=== PATIENT | female | born 1955 | race Caucasian/White ===

== ENCOUNTER 2017-01-13 10:05 | Emergency (ER) | payer MEDICARE, OTHER ==
[2017-01-13 10:18] VITALS: RESP 22
--- NOTE | 2017-01-13 10:50 | ED ---
SOB HPI - General Chief Complaint: Shortness of Breath Stated Complaint: MAI, ASTHMA Time Seen by Provider: 01/13/17 10:38 Source: patient Mode of arrival: ambulatory Limitations: no limitations - History of Present Illness Initial Comments: Patient is a 61-year-old female with history of asthma, secondhand smoke exposure, CAD presenting with shortness of breath. Patient states she was walking into [facility] today and got short of breath for which she needed to rest. Patient admits to coughing for the past 5 weeks. She describes cough is white sputum. Patient denies fever or chills. Admits to runny nose and congestion. Patient denies chest pain. Patient denies history of DVT/PE, recent travel/trauma/surgery, hemoptysis. - Related Data Home Medications Medication Instructions Recorded Confirmed Atenolol [Tenormin] 25 mg PO DAILY 08/02/15 01/13/17 Aspirin EC [Ecotrin Low Dose] 81 mg PO DAILY 08/09/16 01/13/17 Previous Rx's Medication Instructions Recorded Levofloxacin [Levaquin] 750 mg PO DAILY #5 tab 01/13/17 Allergies Allergy/AdvReac Type Severity Reaction Status Date / Time Iodinated Contrast Media - Allergy Anaphylaxis Verified 01/13/17 10:18 Oral and [Iodinated Contrast Media - IV Dye] Penicillins Allergy Rash/Hives Verified 01/13/17 10:18 Review of Systems ROS Statement: Those systems with pertinent positive or pertinent negative responses have been documented in the HPI. Constitutional: No fever and no chills. HENT: +congestion, no rhinorrhea and no sore throat. Eyes: No discharge and no redness. Respiratory: + cough and + shortness of breath. Cardiovascular: No chest pain and no palpitations. Gastrointestinal: No nausea, no vomiting, no abdominal pain and no diarrhea. Genitourinary: No dysuria and no hematuria. Musculoskeletal: No back pain and no arthralgias. Skin: No pallor and no rash. Neurological: No dizziness and No headaches. ROS Other: All systems not noted in ROS Statement are negative. Past Medical History Past Medical History: Asthma, Coronary Artery Disease (CAD), Cancer, Eye Disorder, Hypertension Additional Past Medical History / Comment(s): uterine, CATARACTS History of Any Multi-Drug Resistant Organisms: None Reported Past Surgical History: Heart Catheterization, Hysterectomy, Orthopedic Surgery Additional Past Surgical History / Comment(s): BUNIONECTOMY, CATARACT SX Past Anesthesia/Blood Transfusion Reactions: No Reported Reaction Past Psychological History: No Psychological Hx Reported Smoking Status: Former smoker Past Alcohol Use History: None Reported Additional Past Alcohol Use History / Comment(s): QUIT SMOKING " A LONG TIME AGO " Past Drug Use History: None Reported - Past Family History Mother Family Medical History: No Reported History General Exam - General Exam Comments Initial Comments: Constitutional: Patient appears well-developed and well-nourished. No distress. Talking in complete sentences. Head: Normocephalic and atraumatic. Eyes: Conjunctivae and EOM are normal. Right eye exhibits no discharge. Left eye exhibits no discharge. No scleral icterus. Neck: Normal range of motion. Neck supple. Cardiovascular: Normal rate and regular rhythm. No murmur heard. Pulmonary/Chest: Decreased breath sounds left lower lobe with mild crackles. No wheezing. Abdominal: Soft. No distension. There is no tenderness. There is no rebound and no guarding. Musculoskeletal: Normal range of motion. No edema or tenderness. Neurological: Patient alert and oriented to person, place, and time. Skin: Skin is warm and dry. Not diaphoretic. Nursing notes and vitals reviewed. Limitations: no limitations Course Vital Signs 01/13/17 01/13/17 10:15 12:18 Temperature 97.6 F 98.2 F Pulse Rate 64 73 Respiratory 22 22 Rate Blood Pressure 137/76 147/68 O2 Sat by Pulse 92 L 96 Oximetry - Reevaluation(s) Reevaluation #1: Patient ambulated in the [place] without hypoxia. She is feeling well and hasn't been hospitalized last 3 months. X-ray concerning for pneumonia. Medical Decision Making - Medical Decision Making Patient is a 61-year-old female with history of asthma and secondhand smoke exposure presenting with shortness of breath. Patient states she's been coughing for the past 5 weeks. EKG was unremarkable. Chest x-ray showed concerning for a left lower lobe pneumonia. Laboratory work confirms concern for pneumonia with a white count of 16.5. BMP showing a BUN of 22. Troponin negative; BNP 184. UA negative. Given patient's concern of short of breath and cough in the setting of an x-ray with consolidation and white count of 16.5 patient will be treated for community acquired pneumonia. Patient is not hypoxic on exam or with ambulation. Patient agreeable to starting Levaquin and to return for any worsening of symptoms or unable to tolerate medications. Patient strictly instructed to follow-up with her PCP on Saturday.Prior to discharge, patient was resting comfortably in bed. Course of stay improved. Denies pain. Discussed physical exam and diagnostic tests with patient. Questions answered and patient is agreeable to discharge with close follow up with Primary Care Physician. Instructed to return to Emergency Department if symptoms worsen. - Lab Data Result diagrams: 01/13/17 11:15 01/13/17 11:15 Lab Results 01/13/17 01/13/17 01/13/17 Range/Units 11:15 11:15 11:15 WBC 16.5 H (3.8-10.6) k/uL RBC 5.12 (3.80-5.40) m/uL Hgb 14.8 (11.4-16.0) gm/dL Hct 45.8 (34.0-46.0) % MCV 89.5 (80.0-100.0) fL MCH 28.9 (25.0-35.0) pg MCHC 32.3 (31.0-37.0) g/dL RDW 14.4 (11.5-15.5) % Plt Count 307 (150-450) k/uL Neutrophils % 81 % Lymphocytes % 13 % Monocytes % 4 % Eosinophils % 2 % Basophils % 0 % Neutrophils # 13.4 H (1.3-7.7) k/uL Lymphocytes # 2.1 (1.0-4.8) k/uL Monocytes # 0.7 (0-1.0) k/uL Eosinophils # 0.3 (0-0.7) k/uL Basophils # 0.1 (0-0.2) k/uL Sodium 143 (137-145) mmol/L Potassium 4.1 (3.5-5.1) mmol/L Chloride 109 H (98-107) mmol/L Carbon Dioxide 23 (22-30) mmol/L Anion Gap 11 mmol/L BUN 22 H (7-17) mg/dL Creatinine 0.80 (0.52-1.04) mg/dL Est GFR (MDRD) Af Amer >60 (>60 ml/min/1.73 sqM) Est GFR (MDRD) Non-Af >60 (>60 ml/min/1.73 sqM) Glucose 98 (74-99) mg/dL Calcium 8.7 (8.4-10.2) mg/dL Magnesium 1.8 (1.6-2.3) mg/dL Troponin I <0.012 (0.000-0.034) ng/mL NT-Pro-B Natriuret Pep pg/mL Urine Color Urine Appearance (Clear) Urine pH (5.0-8.0) Ur Specific Halma (1.001-1.035) Urine Protein (Negative) Urine Glucose (UA) (Negative) Urine Ketones (Negative) Urine Blood (Negative) Urine Nitrate (Negative) Urine Bilirubin (Negative) Urine Urobilinogen (<2.0) mg/dL Ur Leukocyte Esterase (Negative) Urine RBC (0-5) /hpf Urine WBC (0-5) /hpf Ur Squamous Epith Cells (0-4) /hpf Hyaline Casts (0-2) /lpf Urine Mucus (None) /hpf 01/13/17 01/13/17 Range/Units 11:15 11:19 WBC (3.8-10.6) k/uL RBC (3.80-5.40) m/uL Hgb (11.4-16.0) gm/dL Hct (34.0-46.0) % MCV (80.0-100.0) fL MCH (25.0-35.0) pg MCHC (31.0-37.0) g/dL RDW (11.5-15.5) % Plt Count (150-450) k/uL Neutrophils % % Lymphocytes % % Monocytes % % Eosinophils % % Basophils % % Neutrophils # (1.3-7.7) k/uL Lymphocytes # (1.0-4.8) k/uL Monocytes # (0-1.0) k/uL Eosinophils # (0-0.7) k/uL Basophils # (0-0.2) k/uL Sodium (137-145) mmol/L Potassium (3.5-5.1) mmol/L Chloride (98-107) mmol/L Carbon Dioxide (22-30) mmol/L Anion Gap mmol/L BUN (7-17) mg/dL Creatinine (0.52-1.04) mg/dL Est GFR (MDRD) Af Amer (>60 ml/min/1.73 sqM) Est GFR (MDRD) Non-Af (>60 ml/min/1.73 sqM) Glucose (74-99) mg/dL Calcium (8.4-10.2) mg/dL Magnesium (1.6-2.3) mg/dL Troponin I (0.000-0.034) ng/mL NT-Pro-B Natriuret Pep 184 pg/mL Urine Color Yellow Urine Appearance Cloudy H (Clear) Urine pH 5.5 (5.0-8.0) Ur Specific Halma 1.026 (1.001-1.035) Urine Protein Trace H (Negative) Urine Glucose (UA) Negative (Negative) Urine Ketones Negative (Negative) Urine Blood Negative (Negative) Urine Nitrate Negative (Negative) Urine Bilirubin Negative (Negative) Urine Urobilinogen 2.0 (<2.0) mg/dL Ur Leukocyte Esterase Negative (Negative) Urine RBC 1 (0-5) /hpf Urine WBC 1 (0-5) /hpf Ur Squamous Epith Cells 5 H (0-4) /hpf Hyaline Casts 1 (0-2) /lpf Urine Mucus Occasional H (None) /hpf Rate 63. NSR. No ST-T wave changes. MI internal normal . QRS interval normal. QTc duration normal. Disposition Clinical Impression: CAP (community acquired pneumonia) Disposition: HOME SELF-CARE Condition: Good Instructions: Pneumonia (ED) Prescriptions: Levofloxacin [Levaquin] 750 mg PO DAILY #5 tab Referrals: Antolin Kaplan MD [Primary Care Provider] - 1-2 days
--- NOTE | 2017-01-13 11:15 | XR ---
EXAMINATION TYPE: XR chest 1V portable DATE OF EXAM: 01/13/2017 11:04 AM COMPARISON: Prior chest x-ray February HISTORY: Shortness of breath TECHNIQUE: Single frontal view of the chest is obtained. FINDINGS: There is been interval development of increase opacity at the left lung base, blunting the left costophrenic angle an obscured left heart border. No pneumothorax. Heart may be enlarged. IMPRESSION: Interval development of left lower lobe atelectasis versus pneumonia and associated effu won, follow-up to exclude underlying mass. Additional findings above.
[2017-01-13 11:26] LABS: Basophils # (A) 0.1 k/uL (0-0.2); Basophils % (A) 0 %; CH 29.6; CHCM 33.3; Eosinophils # (A) 0.3 k/uL (0-0.7); Eosinophils % (A) 2 %; HCT 45.8 % (34.0-46.0); HDW 2.32; HGB 14.8 gm/dL (11.4-16.0); Luc % (Auto) 1; Lymphocytes # (A) 2.1 k/uL (1.0-4.8); Lymphocytes % (A) 13 %; MCH 28.9 pg (25.0-35.0); MCHC 32.3 g/dL (31.0-37.0); MCV 89.5 fL (80.0-100.0); Mean Platelet Volume 7.9; Monocytes # (A) 0.7 k/uL (0-1.0); Monocytes % (A) 4 %; Neutrophils # (A) 13.4 k/uL (1.3-7.7); Neutrophils % (A) 81 %; RBC 5.12 m/uL (3.80-5.40); RDW 14.4 % (11.5-15.5); WBC 16.5 k/uL (3.8-10.6); WBC (Perox) 16.79
[2017-01-13 11:33] LABS: Anion Gap 11 mmol/L; Blood Urea Nitrogen 22 mg/dL (7-17); Calcium 8.7 mg/dL (8.4-10.2); Carbon Dioxide 23 mmol/L (22-30); Chloride 109 mmol/L (98-107); Glucose 98 mg/dL (74-99); Magnesium 1.8 mg/dL (1.6-2.3); Non-African American GFR(MDRD) >60 (>60 ml/min/1.73 sqM); Potassium 4.1 mmol/L (3.5-5.1); Sodium 143 mmol/L (137-145)
[2017-01-13 11:35] LABS: Appearance,Urine Cloudy (Clear); Bilirubin,Urine Negative (Negative); Glucose,Urine (UA) Negative (Negative); Ketones,Urine Negative (Negative); Leukocyte Esterase,Urine Negative (Negative); Mucus,Urine Occasional /hpf; Nitrite,Urine Negative (Negative); PH, Urine 5.5 (5.0-8.0); Particle Count 4368; Protein,Urine Trace (Negative); RBC,Urine 1 /hpf (0-5); Specific Gravity,Urine 1.026 (1.001-1.035); Squamous Epithelial Cell,Urine 5 /hpf (0-4); UA Billing (MACRO vs. MICRO) MICRO; WBC,Urine 1 /hpf (0-5)
[2017-01-13 12:35] VITALS: BP 147/68; PULSE 73; TEMP 98.2
== END 2017-01-13 13:03 | disposition home or self-care (01) ==
LOC: EC 10:05
DX: J18.9 Pneumonia, unspecified organism (principal); I10 Essential (primary) hypertension; I25.10 Atherosclerotic heart disease of native coronary artery without angina pectoris; Z77.22 Contact with and (suspected) exposure to environmental tobacco smoke (acute) (chronic); Z79.82 Long term (current) use of aspirin; Z79.899 Other long term (current) drug therapy; Z88.0 Allergy status to penicillin; Z91.041 Radiographic dye allergy status; Z87.891 Personal history of nicotine dependence
CPT/HCPCS: 36415; 71010; 80048; 81001; 83735; 83880; 84484; 85025; 93005; 99285

== ENCOUNTER 2017-01-15 13:26 | Inpatient (IN) | payer MEDICARE, OTHER ==
[2017-01-15] MEDS ORDERED: ACETAMINOPHEN TAB 500 MG TAB PO STA (14:28)
[2017-01-15] MEDS ORDERED: IPRATROPIUM-ALBUTEROL 3 ML NEB INHALATION STA (14:30)
--- NOTE | 2017-01-15 14:32 | ED ---
General Adult HPI - General Chief complaint: Shortness of Breath Stated complaint: Sent By PCP Time Seen by Provider: 01/15/17 13:35 Source: patient, RN notes reviewed Mode of arrival: ambulatory Limitations: no limitations - History of Present Illness Initial comments: This is a 61-year-old female presents emergency Department with a recent diagnosis of pneumonia. Patient went to the primary medical care doctor he sent her back to the emergency room. Patient was here last on Saturday. Patient has not Levaquin at home which she states she is having a more difficult time breathing and increasing shortness of breath with any activity. Patient denies chest pain or palpitations. Patient states she does have low-grade fever. Patient denies any abdominal pain patient denies nausea vomiting or diarrhea. Patient denies any recent injury or trauma. Patient states she is coughing but not coughing up any sputum. Patient denies any headache patient denies numbness weakness. Patient denies any lightheadedness or dizziness or near syncopal episode. - Related Data Home Medications Medication Instructions Recorded Confirmed Atenolol [Tenormin] 25 mg PO DAILY 08/02/15 01/15/17 Aspirin EC [Ecotrin Low Dose] 81 mg PO DAILY 08/09/16 01/15/17 Acetaminophen with Codeine 1 tab PO Q6H PRN 01/15/17 01/15/17 [Tylenol w/codeine #3] Atorvastatin [Lipitor] 40 mg PO DAILY 01/15/17 01/15/17 Cetirizine HCl [Zyrtec] 10 mg PO DAILY PRN 01/15/17 01/15/17 Ibuprofen [Motrin] 600 mg PO QID PRN 01/15/17 01/15/17 traMADol HCL [Ultram] 50 mg PO Q6H PRN 01/15/17 01/15/17 Allergies Allergy/AdvReac Type Severity Reaction Status Date / Time Iodinated Contrast Media - Allergy Anaphylaxis Verified 01/15/17 14:21 Oral and [Iodinated Contrast Media - IV Dye] Penicillins Allergy Rash/Hives Verified 01/15/17 14:21 Review of Systems ROS Statement: Those systems with pertinent positive or pertinent negative responses have been documented in the HPI. ROS Other: All systems not noted in ROS Statement are negative. Past Medical History Past Medical History: Asthma, Coronary Artery Disease (CAD), Cancer, Eye Disorder, Hypertension Additional Past Medical History / Comment(s): uterine, CATARACTS History of Any Multi-Drug Resistant Organisms: None Reported Past Surgical History: Heart Catheterization, Hysterectomy, Orthopedic Surgery Additional Past Surgical History / Comment(s): BUNIONECTOMY, CATARACT SX Past Anesthesia/Blood Transfusion Reactions: No Reported Reaction Past Psychological History: No Psychological Hx Reported Smoking Status: Former smoker Past Alcohol Use History: None Reported Additional Past Alcohol Use History / Comment(s): QUIT SMOKING " A LONG TIME AGO " Past Drug Use History: None Reported - Past Family History Mother Family Medical History: No Reported History General Exam - General Exam Comments Initial Comments: GENERAL: Patient is well-developed and well-nourished. Patient is nontoxic and well- hydrated and is in mild distress. ENT: Neck is soft and supple. No significant lymphadenopathy is noted. Oropharynx is clear. Moist mucous membranes. Neck has full range of motion without eliciting any pain. EYES: The sclera were anicteric and conjunctiva were pink and moist. Extraocular movements were intact and pupils were equal round and reactive to light. Eyelids were unremarkable. PULMONARY: Patient has decreased breath sounds in the left base. CARDIOVASCULAR: There is a regular rate and rhythm without any murmurs gallops or rubs. ABDOMEN: Soft and nontender with normal bowel sounds. No palpable organomegaly was noted. There is no palpable pulsatile mass. SKIN: Skin is clear with no lesions or rashes and otherwise unremarkable. NEUROLOGIC: Patient is alert and oriented x3. Cranial nerves II through XII are grossly intact. Motor and sensory are also intact. Normal speech, volume and content. Symmetrical smile. MUSCULOSKELETAL: Normal extremities with adequate strength and full range of motion. LYMPHATICS: No significant lymphadenopathy is noted PSYCHIATRIC: Normal psychiatric evaluation. Normal interpersonal interactions appears functionally intact in deals appropriately with others. No signs of depression. No signs of anxiety. Limitations: no limitations Course Vital Signs 01/15/17 01/15/17 01/15/17 13:32 14:55 15:05 Temperature 100 F H Pulse Rate 73 78 82 Respiratory 22 Rate Blood Pressure 148/102 O2 Sat by Pulse 97 Oximetry Medical Decision Making - Medical Decision Making EKG shows normal sinus rhythm at 68 bpm UT interval is 118 QRS is 84 QT interval 380 QTC is 404. Patient's EKG shows no ST segment elevation or depression or T-wave abdomen is noted Chest x-ray shows a large pleural effusion on the right and possible pneumonia. Patient is awake, started the patient on Rocephin and Zithromax because she was on Levaquin as an outpatient and apparently was not getting better. - Lab Data Result diagrams: 01/15/17 14:40 01/15/17 14:40 Lab Results 01/15/17 01/15/17 01/15/17 Range/Units 14:40 14:40 14:40 WBC 13.8 H (3.8-10.6) k/uL RBC 5.25 (3.80-5.40) m/uL Hgb 15.0 (11.4-16.0) gm/dL Hct 46.4 H (34.0-46.0) % MCV 88.5 (80.0-100.0) fL MCH 28.5 (25.0-35.0) pg MCHC 32.3 (31.0-37.0) g/dL RDW 14.4 (11.5-15.5) % Plt Count 320 (150-450) k/uL Neutrophils % 79 % Lymphocytes % 15 % Monocytes % 4 % Eosinophils % 1 % Basophils % 0 % Neutrophils # 10.9 H (1.3-7.7) k/uL Lymphocytes # 2.0 (1.0-4.8) k/uL Monocytes # 0.5 (0-1.0) k/uL Eosinophils # 0.2 (0-0.7) k/uL Basophils # 0.0 (0-0.2) k/uL Sodium 143 (137-145) mmol/L Potassium 4.1 (3.5-5.1) mmol/L Chloride 107 (98-107) mmol/L Carbon Dioxide 22 (22-30) mmol/L Anion Gap 14 mmol/L BUN 15 (7-17) mg/dL Creatinine 0.80 (0.52-1.04) mg/dL Est GFR (MDRD) Af Amer >60 (>60 ml/min/1.73 sqM) Est GFR (MDRD) Non-Af >60 (>60 ml/min/1.73 sqM) Glucose 96 (74-99) mg/dL Plasma Lactic Acid Fuentes 1.1 (0.7-2.0) mmol/L Calcium 9.2 (8.4-10.2) mg/dL Total Bilirubin 1.1 (0.2-1.3) mg/dL AST 21 (14-36) U/L ALT 40 (9-52) U/L Alkaline Phosphatase 105 (38-126) U/L Troponin I (0.000-0.034) ng/mL Total Protein 6.9 (6.3-8.2) g/dL Albumin 3.8 (3.5-5.0) g/dL 01/15/17 Range/Units 14:40 WBC (3.8-10.6) k/uL RBC (3.80-5.40) m/uL Hgb (11.4-16.0) gm/dL Hct (34.0-46.0) % MCV (80.0-100.0) fL MCH (25.0-35.0) pg MCHC (31.0-37.0) g/dL RDW (11.5-15.5) % Plt Count (150-450) k/uL Neutrophils % % Lymphocytes % % Monocytes % % Eosinophils % % Basophils % % Neutrophils # (1.3-7.7) k/uL Lymphocytes # (1.0-4.8) k/uL Monocytes # (0-1.0) k/uL Eosinophils # (0-0.7) k/uL Basophils # (0-0.2) k/uL Sodium (137-145) mmol/L Potassium (3.5-5.1) mmol/L Chloride (98-107) mmol/L Carbon Dioxide (22-30) mmol/L Anion Gap mmol/L BUN (7-17) mg/dL Creatinine (0.52-1.04) mg/dL Est GFR (MDRD) Af Amer (>60 ml/min/1.73 sqM) Est GFR (MDRD) Non-Af (>60 ml/min/1.73 sqM) Glucose (74-99) mg/dL Plasma Lactic Acid Fuentes (0.7-2.0) mmol/L Calcium (8.4-10.2) mg/dL Total Bilirubin (0.2-1.3) mg/dL AST (14-36) U/L ALT (9-52) U/L Alkaline Phosphatase (38-126) U/L Troponin I <0.012 (0.000-0.034) ng/mL Total Protein (6.3-8.2) g/dL Albumin (3.5-5.0) g/dL Disposition Clinical Impression: Pneumonia, Pleural effusion Disposition: ADMITTED IP TO THIS HOSP Time of Disposition: 16:11
[2017-01-15 15:00] LABS: Basophils % (A) 0 %; CH 29.4; CHCM 33.3; Eosinophils # (A) 0.2 k/uL (0-0.7); Eosinophils % (A) 1 %; HCT 46.4 % (34.0-46.0); HDW 2.24; Luc # (Auto) 0.12; Luc % (Auto) 1; Lymphocytes % (A) 15 %; MCH 28.5 pg (25.0-35.0); MCHC 32.3 g/dL (31.0-37.0); MCV 88.5 fL (80.0-100.0); Mean Platelet Volume 7.1; Monocytes # (A) 0.5 k/uL (0-1.0); Monocytes % (A) 4 %; Neutrophils # (A) 10.9 k/uL (1.3-7.7); Neutrophils % (A) 79 %; RBC 5.25 m/uL (3.80-5.40); RDW 14.4 % (11.5-15.5); WBC 13.8 k/uL (3.8-10.6); WBC (Perox) 13.92
[2017-01-15 15:08] LABS: ALT 40 U/L (9-52); AST 21 U/L (14-36); Alkaline Phosphatase 105 U/L (38-126); Anion Gap 14 mmol/L; Blood Urea Nitrogen 15 mg/dL (7-17); Calcium 9.2 mg/dL (8.4-10.2); Carbon Dioxide 22 mmol/L (22-30); Chloride 107 mmol/L (98-107); Glucose 96 mg/dL (74-99); Non-African American GFR(MDRD) >60 (>60 ml/min/1.73 sqM); Potassium 4.1 mmol/L (3.5-5.1); Sodium 143 mmol/L (137-145); Total Bilirubin 1.1 mg/dL (0.2-1.3); Total Protein 6.9 g/dL (6.3-8.2)
[2017-01-15] MEDS ORDERED: PNEUMONIA PROTOCOL UTILIZED 1 EACH MISC PO PRN (16:11)
[2017-01-15] MEDS ORDERED: AZITHROMYCIN 500 MG in SODIUM CHLORIDE 0.9% 250 ML IVPB STA (16:15)
[2017-01-15] MEDS ORDERED: LORATADINE 10 MG TAB PO PRN (20:32)
[2017-01-15] MEDS ORDERED: traMADol 50 MG TAB PO PRN (20:32)
[2017-01-15] MEDS ORDERED: IBUPROFEN 600 MG TAB PO PRN (20:32)
[2017-01-15] MEDS: IPRATROPIUM-ALBUTEROL 3 ML NEB INHALATION SCH (20:51)
[2017-01-15] MEDS: MELATONIN 3 MG TABLET PO SCH (21:21)
--- NOTE | 2017-01-16 07:31 | XR ---
EXAMINATION TYPE: XR chest 2V DATE OF EXAM: 01/16/2017 6:46 AM HISTORY: Shortness of breath. REFERENCE: Previous study dated 01/13/2017. FINDINGS: There is a worsening left-sided pleural effusion. There is associated atelectasis. The righ t lung is clear. Heart size is obscured. IMPRESSION: WORSENING LEFT-SIDED OPACITY LIKELY REPRESENTING COMBINATION OF FLUID AND ATELECTASIS. FOLLOW-UP TO [facility] WOULD BE SUGGESTED TO EXCLUDE MALIGNANCY.
[2017-01-16] MEDS: IPRATROPIUM-ALBUTEROL 3 ML NEB INHALATION SCH ×4 (08:43→19:23)
[2017-01-16] MEDS: ATENOLOL 25 MG TAB PO SCH (09:10)
[2017-01-16] MEDS: ASPIRIN 81 MG CHEW PO SCH (09:10)
[2017-01-16] MEDS: ATORVASTATIN 40 MG TAB PO SCH (09:10)
[2017-01-16 09:44] VITALS: BMI 41.5
--- NOTE | 2017-01-16 12:12 | HP ---
DATE OF ADMISSION: 01/15/2017 PRESENTING COMPLAINT: Short of breath. HISTORY OF PRESENTING COMPLAINT: This is a pleasant 61-year-old mentally challenged patient. Follows with Dr. Kaplan. Patient's chronic stable medical conditions include coronary artery disease, hypertension, hyperlipidemia, osteoarthritis, gout. Patient presented to the ER, patient recently diagnosed with pneumonia and given Levaquin. Patient became more short of breath, has got a cough, no sputum. May have had a low grade fever. Appetite has been low. Patient was found to have a large pleural effusion on left side as a possible pneumonic infiltrate. Admitted for the same. REVIEW OF SYSTEMS: CONSTITUTIONAL: Tired. HEENT: None. RESPIRATORY: As above. CARDIOVASCULAR: None. GASTROINTESTINAL: None. GENITOURINARY: None. MUSCULOSKELETAL: Some pain in different joints. DERMATOLOGICAL: None. HEMATOLOGICAL: None. LYMPHATIC: None. PSYCHIATRY: Patient slightly slow. NEUROLOGICAL: Moving all 4 limbs. Past medical history of asthma, coronary artery disease, hyperlipidemia, hypertension, osteoarthritis, uterine cancer, cataract in the right eye, migraine, gout. PAST SURGICAL HISTORY: Cardiac cath, hysterectomy, bilateral bunionectomy, right hand surgery. SOCIAL HISTORY: Patient not able to read or write, lives with her will, telephone number [phone]. No smoking. No alcohol. FAMILY HISTORY: Patient does not remember. HOME MEDICATIONS: 1. Tenormin 25 mg a day. 2. Aspirin 81 mg a day. 3. Tylenol No. 3 one tablet q.6 p.r.n. 4. Ultram 50 mg q.6 p.r.n. 5. Motrin 600 mg q.i.d. p.r.n. 6. Zyrtec 10 mg p.o. daily p.r.n. 7. Lipitor 40 mg p.o. daily. Allergies to IV CONTRAST DYE. On examination, temperature 100, pulse 73, respiratory 22, blood pressure 148/102, pulse ox 97% on room air. GENERAL APPEARANCE: Well built, BMI of 41, sitting up, not in distress. EYES: Pupils equal. Conjunctivae normal. HEENT: External appearance of nose and ears normal. Oral cavity normal. NECK: JVD not raised. Mass not palpable. Respiratory effort increased. LUNGS: Diminished breath sounds on the left side. CARDIOVASCULAR: First and second sounds normal. No edema. ABDOMEN: Soft, nontender. Liver and spleen not palpable. LYMPHATIC: No lymph nodes palpable in the neck or axilla. . PSYCHIATRY: Patient answers simple questions. NEUROLOGICAL: Pupils equal. Moving all 4 limbs. INVESTIGATIONS: Chest x-ray shows the probable left pleural effusion, cannot rule out underlying infiltrate. White count 13.8, potassium 4.1. Creatinine are normal. ASSESSMENT: 1. Probably left-sided pneumonia with a large parapneumonic effusion, though patient does not have a septic picture on presentation, we will need further investigation. 2. Morbid obesity with body mass index of 41.5. 3. Mild persistent asthma. 4. Coronary artery disease, history of. 5. Essential hypertension. 6. Primary osteoarthritis in multiple joints, bilateral. 7. Hyperlipidemia. PLAN: Patient was put on IV ceftriaxone in the ER. Pulmonary is consulted. Home medications are resumed. Care was discussed with the patient.
[2017-01-16] MEDS: ENOXAPARIN 40 MG/0.4 ML SYRINGE SQ SCH (12:46)
--- NOTE | 2017-01-16 15:11 | XR ---
EXAMINATION TYPE: XR chest 1V portable DATE OF EXAM: 01/16/2017 2:57 PM COMPARISON: Prior chest x-ray December HISTORY: Status post left thoracentesis TECHNIQUE: Single frontal view of the chest is obtained. FINDINGS: There may be some slight reduction in pleural fluid on the left. There is no other signifi cant interval change. IMPRESSION: Large left pleural effusion and associated atelectasis or cyst pneumonia, follow-up to [facility], no evident complication status post thoracentesis
--- NOTE | 2017-01-16 16:41 | CT ---
EXAMINATION TYPE: CT chest wo con DATE OF EXAM: 01/16/2017 4:32 PM COMPARISON: Previous study dated 02/03/2014. HISTORY: LLL opacity. CT DLP: 573.1 mGycm Automated exposure control for dose reduction was used. FINDINGS: There is a prominent left-sided pleural effusion. This was not present previously. The 4.5 mm nodule in the right middle lobe noted previously today measures 5.8 mm. No additional nodu larity is seen. There is atelectatic change present at the left lung base. The major bronchi appear p atent. There is no significant axillary, internal mammary or hilar adenopathy. The heart is enlarged. There is no pericardial fluid. Visualized portions of the upper abdomen are unremarkable. There is hypertrophic spondylosis within t he spine. IMPRESSION: 1. SLIGHT ENLARGEMENT IN THE PATIENT'S RIGHT MIDDLE LOBE NODULE. 2. WORSENING LEFT EFFUSION WITH ASSOCIATED ATELECTASIS. 3. CARDIOMEGALY.
[2017-01-16] MEDS: AZITHROMYCIN 500 MG TAB PO SCH (16:45)
--- NOTE | 2017-01-16 17:11 | P.CNPUL ---
History of Present Illness Consult date: 01/16/17 Reason for consult: pleural effusion History of present illness: This is a 61-year-old female patient who came into the hospital because of a large left-sided pleural effusion. A pulmonary consultation was requested. Note that the patient was in the emergency department few days back with cough and chest congestion and shortness of breath. At that time her chest x-ray showed a small to moderate-sized left-sided pleural effusion and she was placed on antibiotics and she was discharged home. Subsequently she came back for worsening of her symptoms and the repeat chest x-ray showed worsening of the left-sided pleural effusion. Based on this, the patient was admitted to the hospital and pulmonary consultation was requested. Despite all this, the patient has limited shortness of breath at this point. No cough today. She is afebrile hemodynamically stable. White cell count is not elevated. I reviewed the chest x-ray and there was a large left-sided pleural effusion and I proceeded with thoracentesis today evacuated a total of 900 mL of pleural fluid from the left lung. The procedure was done without any complications. Nevertheless, the follow-up chest x-ray showed a persistent consolidation of the left lung. A CAT scan of the chest was accordingly orders. The CAT scan is still showing significant consolidation of left lower lobe along with some limited loculated pleural effusion the left lung base. No mediastinal lymphadenopathy. A tiny subcentimeter right midlung pulmonary nodule is seen. The fluid cytology is pending. Fluid chemistry is also pending. The patient has a remote history of uterine cancer. She has had partial hysterectomy many years back. Her health maintenance has not been appropriately done. She denies having any mammograms or routine colonoscopies regarding cancer screening. No history of any TB exposure. Review of Systems full review of system was done and the positive findings are almost above in history of present illness Past Medical History Past Medical History: Asthma, Coronary Artery Disease (CAD), Cancer, Eye Disorder, Hyperlipidemia, Hypertension, Osteoarthritis (OA), Pneumonia Additional Past Medical History / Comment(s): Morbid obesity, bronchial asthma, coronary artery disease, hypertension, hyperlipidemia, uterine cancer, osteoarthritis, cataracts, migraines, peripheral neuropathy, episodic urinary tract infections, gout, mentally challenged History of Any Multi-Drug Resistant Organisms: None Reported Past Surgical History: Heart Catheterization, Hysterectomy, Orthopedic Surgery Additional Past Surgical History / Comment(s): Right hand surgery, bilateral bunionectomy, cataract surgery, EGD, colonoscopy, surgery for ingrowing toenails , cardiac catheterization, partial hysterectomy Past Anesthesia/Blood Transfusion Reactions: Motion Sickness Additional Past Anesthesia/Blood Transfusion Reaction / Comment(s): clausterphobia Past Psychological History: No Psychological Hx Reported Additional Psychological History / Comment(s): per pt's sister diallo,pt is menatally challenged, unable to read or write.lives with [id number] , independant no assistive devices when up Smoking Status: Never smoker Past Alcohol Use History: None Reported Additional Past Alcohol Use History / Comment(s): QUIT SMOKING " A LONG TIME AGO " Past Drug Use History: None Reported - Past Family History Mother Family Medical History: Unable to Obtain Father Family Medical History: Unable to Obtain Medications and Allergies Home Medications Medication Instructions Recorded Confirmed Type Atenolol [Tenormin] 25 mg PO DAILY 08/02/15 01/15/17 History Aspirin EC [Ecotrin Low Dose] 81 mg PO DAILY 08/09/16 01/15/17 History Acetaminophen with Codeine 1 tab PO Q6H PRN 01/15/17 01/15/17 History [Tylenol w/codeine #3] Atorvastatin [Lipitor] 40 mg PO DAILY 01/15/17 01/15/17 History Cetirizine HCl [Zyrtec] 10 mg PO DAILY PRN 01/15/17 01/15/17 History Ibuprofen [Motrin] 600 mg PO QID PRN 01/15/17 01/15/17 History traMADol HCL [Ultram] 50 mg PO Q6H PRN 01/15/17 01/15/17 History Allergies Allergy/AdvReac Type Severity Reaction Status Date / Time Iodinated Contrast Media - Allergy Anaphylaxis Verified 01/15/17 14:21 Oral and [Iodinated Contrast Media - IV Dye] Penicillins Allergy Rash/Hives Verified 01/15/17 14:21 Physical Exam Vitals: Vital Signs Temp Pulse Pulse Resp BP BP Pulse Ox 01/16/17 16:16 80 01/16/17 16:03 82 01/16/17 16:00 16 01/16/17 15:00 98.2 F 65 16 140/78 97 01/16/17 12:28 80 01/16/17 12:15 80 01/16/17 09:06 80 01/16/17 08:44 80 01/16/17 08:00 60 01/16/17 07:00 97.6 F 60 16 144/73 94 L 01/15/17 22:49 97.6 F 88 17 141/65 95 01/15/17 21:02 76 01/15/17 20:58 80 01/15/17 18:06 97.9 F 82 17 166/74 97 01/15/17 17:21 98.9 F 75 18 155/75 95 Intake and Output 01/16/17 01/16/17 01/16/17 06:59 14:59 22:59 Intake Total 480 160 Output Total 850 Balance 480 -690 Intake: IV 160 0.9 160 Oral 480 Output: Chest Tube Drainage 850 Left Pleural/Mediastinal 850 Other: Voiding Method Toilet Toilet # Voids 2 5 Weight 109.769 kg Patient Weight 01/17/17 06:59 Weight 109.769 kg morbidly obese, comfortable.Head exam was generally normal. There was no scleral icterus or corneal arcus. Mucous membranes were moist. My normal neck and the patient has significant crowding of the posterior oropharynx. Lung sounds are diminished in left lung base along with some dullness to percussion. There is adequate air entry on the right lung.Cardiac exam revealed the PMI to be normally situated and sized. The rhythm was regular and no extrasystoles were noted during several minutes of auscultation. The first and second heart sounds were normal and physiologic splitting of the second heart sound was noted. There were no murmurs, rubs, clicks, or gallops.Abdominal exam revealed normal bowel sounds. The abdomen was soft, non-tender, and without masses, organomegaly, or appreciable enlargement of the abdominal aorta.Examination of the extremities revealed easily palpable radial, femoral and pedal pulses. There was no cyanosis, clubbing or edema. Results - Laboratory Findings CBC and BMP: 01/15/17 14:40 01/15/17 14:40 - Diagnostic Findings Chest x-ray: image reviewed Assessment and Plan Plan: Assessment 1 large left-sided pleural effusion/consolidation. The patient underwent a diagnostic and therapeutic thoracentesis following which a total of 900 mL of pleural fluid aspirated from the left lung without any complications. The follow-up CAT scan of the chest shows significant consolidation in the left lung base/left lower lobe along with some limited loculated pleural effusion without any evidence of intrathoracic malignancy. This was done without contrast nontender the patient has an anaphylactic reaction to contrast exposure in the past. The differential diagnoses remains a parapneumonic effusion involving the left lung. Malignant effusion can now be completely excluded. Awaiting fluid analysis and cytology 2 mentally challenged 3 morbid obesity 4 coronary artery disease 5 bronchial asthma 6 he is trying cancer status post hysterectomy. 7 osteoarthritis 8 hypertension 9 hyperlipidemia Plan Awaiting fluid cytology, cover this patient with a combination of Rocephin and Zithromax. Provide the patient incentive spirometer. Provide the patient DuoNeb nebulized treatments around the clock. DVT and GI prophylaxis. We'll continue to follow.
--- NOTE | 2017-01-16 17:13 | P.PCN ---
Date of Procedure: 01/16/17 Preoperative Diagnosis: left-sided pleural effusion Postoperative Diagnosis: left-sided pleural effusion Procedure(s) Performed: thoracentesis Anesthesia: local Surgeon: Lorena Liu Pathology: other Condition: stable Disposition: no change Operative Findings: The procedure was done in the patient's room. The patient was positioned on the bedside and she was asked to sit at edge of the bed with her arms stretched along a bedside table. The left posterior chest area was prepped using chlorhexidine to the necessity 1% lidocaine. Following that I was able to insert a thoracentesis catheter successfully into the left hemithorax and total of 900 mL of pleural fluid was aspirated without any major difficulties or complications. The fluid was turbid and dark yellowish in color. The patient tolerated the procedure well and the chest x-ray following the procedure showed no evidence of any pneumothorax.
[2017-01-16 19:33] LABS: RBC, Body Fluid 790 /uL
[2017-01-16 20:47] LABS: Glucose,Whole Blood 118 mg/dL (75-99)
[2017-01-16] MEDS: MELATONIN 3 MG TABLET PO SCH (21:05)
[2017-01-16] MEDS: Acetaminophen-Codeine 300-30mg TAB PO PRN (21:06)
[2017-01-17] MEDS: IPRATROPIUM-ALBUTEROL 3 ML NEB INHALATION SCH ×4 (07:35→19:23)
[2017-01-17] MEDS: ENOXAPARIN 40 MG/0.4 ML SYRINGE SQ SCH (08:24)
[2017-01-17] MEDS: ATENOLOL 25 MG TAB PO SCH (08:24)
[2017-01-17] MEDS: ATORVASTATIN 40 MG TAB PO SCH (08:24)
[2017-01-17] MEDS: ASPIRIN 81 MG CHEW PO SCH (08:24)
--- NOTE | 2017-01-17 17:01 | P.PN ---
Subjective This is a 61-year-old female patient who came into the hospital because of a large left-sided pleural effusion. A pulmonary consultation was requested. Note that the patient was in the emergency department few days back with cough and chest congestion and shortness of breath. At that time her chest x-ray showed a small to moderate-sized left-sided pleural effusion and she was placed on antibiotics and she was discharged home. Subsequently she came back for worsening of her symptoms and the repeat chest x-ray showed worsening of the left-sided pleural effusion. Based on this, the patient was admitted to the hospital and pulmonary consultation was requested. Despite all this, the patient has limited shortness of breath at this point. No cough today. She is afebrile hemodynamically stable. White cell count is not elevated. I reviewed the chest x-ray and there was a large left-sided pleural effusion and I proceeded with thoracentesis today evacuated a total of 900 mL of pleural fluid from the left lung. The procedure was done without any complications. Nevertheless, the follow-up chest x-ray showed a persistent consolidation of the left lung. A CAT scan of the chest was accordingly orders. The CAT scan is still showing significant consolidation of left lower lobe along with some limited loculated pleural effusion the left lung base. No mediastinal lymphadenopathy. A tiny subcentimeter right midlung pulmonary nodule is seen. The fluid cytology is pending. Fluid chemistry is also pending. The patient has a remote history of uterine cancer. She has had partial hysterectomy many years back. Her health maintenance has not been appropriately done. She denies having any mammograms or routine colonoscopies regarding cancer screening. No history of any TB exposure. The patient was seen and evaluated again on 01/17/2017 on the regular medical floor. She is status post left lung thoracentesis. Fluid analysis and pathology is pending. She denies any shortness of breath, cough and congestion. She is maintaining good O2 saturations in the mid 90s on room air. She is maintained on bronchodilators and antibiotics in the form of ceftriaxone and azithromycin. Objective - Vital Signs Vital signs: Vital Signs Temp 98.1 F 01/17/17 15:16 Pulse 75 01/17/17 16:03 Resp 18 01/17/17 16:00 BP 136/64 01/17/17 15:16 Pulse Ox 95 01/17/17 15:16 Intake & Output 01/16/17 01/17/17 01/17/17 18:59 06:59 18:59 Intake Total 160 480 Output Total 850 Balance -690 480 Weight 109.769 kg 109.769 kg Intake: IV 160 0.9 160 Oral 480 Output: Chest Tube Drainage 850 Left Pleural/Mediastinal 850 Other: Voiding Method Toilet Toilet Toilet # Voids 5 2 2 - Exam Morbidly obese, comfortable.Head exam was generally normal. There was no scleral icterus or corneal arcus. Mucous membranes were moist. My normal neck and the patient has significant crowding of the posterior oropharynx. Lung sounds are diminished in left lung base along with some dullness to percussion. There is adequate air entry on the right lung.Cardiac exam revealed the PMI to be normally situated and sized. The rhythm was regular and no extrasystoles were noted during several minutes of auscultation. The first and second heart sounds were normal and physiologic splitting of the second heart sound was noted. There were no murmurs, rubs, clicks, or gallops.Abdominal exam revealed normal bowel sounds. The abdomen was soft, non-tender, and without masses, organomegaly, or appreciable enlargement of the abdominal aorta.Examination of the extremities revealed easily palpable radial, femoral and pedal pulses. There was no cyanosis, clubbing or edema. - Labs CBC & Chem 7: 01/15/17 14:40 01/15/17 14:40 Labs: Abnormal Lab Results - Last 24 Hours (Table) 01/16/17 Range/Units 20:45 POC Glucose (mg/dL) 118 H (75-99) mg/dL Microbiology - Last 24 Hours (Table) 01/16/17 14:40 Gram Stain - Preliminary Pleural Fluid Body Fluid Culture - Preliminary 01/15/17 16:24 Blood Culture - Preliminary Blood No Growth after 24 hours Assessment and Plan Plan: 1 large left-sided pleural effusion/consolidation. The patient underwent a diagnostic and therapeutic thoracentesis following which a total of 900 mL of pleural fluid aspirated from the left lung without any complications. The follow-up CAT scan of the chest shows significant consolidation in the left lung base/left lower lobe along with some limited loculated pleural effusion without any evidence of intrathoracic malignancy. This was done without contrast nontender the patient has an anaphylactic reaction to contrast exposure in the past. The differential diagnoses remains a parapneumonic effusion involving the left lung. Malignant effusion can now be completely excluded. Awaiting fluid analysis and cytology 2 mentally challenged 3 morbid obesity 4 coronary artery disease 5 bronchial asthma 6 he is trying cancer status post hysterectomy. 7 osteoarthritis 8 hypertension 9 hyperlipidemia Plan The patient was seen and evaluated by Dr. Liu. Awaiting fluid cytology, cover this patient with a combination of Rocephin and Zithromax. She is again encouraged regarding the increased use of the incentive spirometer. Continue bronchodilators. We will increase her activity as tolerated. We'll continue to follow make further recommendations based on her clinical status.
[2017-01-17] MEDS: AZITHROMYCIN 500 MG TAB PO SCH (17:17)
[2017-01-17] MEDS: MELATONIN 3 MG TABLET PO SCH (20:43)
[2017-01-17] MEDS: Acetaminophen-Codeine 300-30mg TAB PO PRN (20:43)
--- NOTE | 2017-01-17 21:51 | PN ---
DATE OF SERVICE: 01/17/2017 PRESENTING COMPLAINT: Short of breath. INTERVAL HISTORY: This patient presented with shortness of breath. Found to have left-sided pleural effusion. 900 mL of pleural fluid was tapped. Biochemistries pending. The patient does not look too much in distress. Did tolerate his diet. Breathing is better. Review of systems done for constitutional, cardiovascular, GI, pulmonary; relevant findings as above. Current medications include IV ceftriaxone. On examination, temperature 98.1, pulse 72, respiration 18, blood pressure 133/54, pulse ox 95% on room air. GENERAL APPEARANCE: Sitting up, not in distress. EYES: Pupils equal. Conjunctivae normal. NECK: JVD not raised. Mass not palpable. RESPIRATORY: Effort normal. LUNGS: Diminished breath sounds in the left side. CARDIOVASCULAR: First and second sounds normal. No edema. ABDOMEN: Soft, nontender. PSYCHIATRY: Awake, answering simple questions. INVESTIGATIONS: The patient body fluid results are pending. ASSESSMENT: 1. Large left-sided parapneumonic effusion could be from her recent pneumonia cannot rule out a malignant component as both consolidation underlying tumors is highly possible. 2. Morbid obesity body mass index of 41.5. 3. Mild persistent asthma. 4. Coronary artery disease, history of. 5. Essential hypertension. 6. Primary osteoarthritis in multiple joints, bilateral. 7. Hyperlipidemia. PLAN: At this point continue with IV ceftriaxone. Discussed with Dr. Liu. Await biochemistry. Patient's sister at the bedside. Will follow.
[2017-01-17 22:33] VITALS: RESP 16
[2017-01-18] MEDS: Acetaminophen-Codeine 300-30mg TAB PO PRN (05:44)
[2017-01-18] MEDS: IPRATROPIUM-ALBUTEROL 3 ML NEB INHALATION SCH ×3 (07:25→15:55)
[2017-01-18 08:10] LABS: Basophils # (A) 0.1 k/uL (0-0.2); Basophils % (A) 0 %; CH 29.1; CHCM 33.1; Eosinophils # (A) 0.3 k/uL (0-0.7); Eosinophils % (A) 2 %; HCT 43.4 % (34.0-46.0); HDW 2.27; HGB 14.2 gm/dL (11.4-16.0); Luc # (Auto) 0.11; Luc % (Auto) 1; Lymphocytes # (A) 2.9 k/uL (1.0-4.8); Lymphocytes % (A) 23 %; MCHC 32.8 g/dL (31.0-37.0); MCV 88.3 fL (80.0-100.0); Mean Platelet Volume 7.9; Monocytes # (A) 0.6 k/uL (0-1.0); Monocytes % (A) 4 %; Neutrophils # (A) 9.1 k/uL (1.3-7.7); Neutrophils % (A) 70 %; RBC 4.91 m/uL (3.80-5.40); RDW 14.5 % (11.5-15.5); WBC (Perox) 13.44
--- NOTE | 2017-01-18 08:13 | XR ---
EXAMINATION TYPE: XR chest 2V DATE OF EXAM: 01/18/2017 6:28 AM COMPARISON: 01/16/2017 HISTORY: 61 year-old female follow-up pneumonia TECHNIQUE: Frontal and lateral views FINDINGS: Left heart margin remains obscured by adjacent pleural parenchymal disease. There is continued modera te to large left pleural effusion with adjacent opacity. Visualized right lung is clear. IMPRESSION: Continued moderate to large left pleural effusion without interval change. Adjacent atelectasis or co nsolidation not excluded.
[2017-01-18 08:25] VITALS: BP 142/72; TEMP 97.6
[2017-01-18 08:38] LABS: ALT 31 U/L (9-52); AST 20 U/L (14-36); Alkaline Phosphatase 91 U/L (38-126); Anion Gap 13 mmol/L; Blood Urea Nitrogen 18 mg/dL (7-17); Calcium 8.9 mg/dL (8.4-10.2); Carbon Dioxide 26 mmol/L (22-30); Chloride 104 mmol/L (98-107); Glucose 98 mg/dL (74-99); Non-African American GFR(MDRD) >60 (>60 ml/min/1.73 sqM); Potassium 4.2 mmol/L (3.5-5.1); Sodium 143 mmol/L (137-145); Total Protein 6.6 g/dL (6.3-8.2)
[2017-01-18] MEDS: ATENOLOL 25 MG TAB PO SCH (08:43)
[2017-01-18] MEDS: ASPIRIN 81 MG CHEW PO SCH (08:43)
[2017-01-18] MEDS: ENOXAPARIN 40 MG/0.4 ML SYRINGE SQ SCH (08:43)
[2017-01-18] MEDS: ATORVASTATIN 40 MG TAB PO SCH (08:43)
[2017-01-18 11:29] VITALS: PULSE 80
--- NOTE | 2017-01-18 15:13 | P.PN ---
Subjective This is a 61-year-old female patient who came into the hospital because of a large left-sided pleural effusion. A pulmonary consultation was requested. Note that the patient was in the emergency department few days back with cough and chest congestion and shortness of breath. At that time her chest x-ray showed a small to moderate-sized left-sided pleural effusion and she was placed on antibiotics and she was discharged home. Subsequently she came back for worsening of her symptoms and the repeat chest x-ray showed worsening of the left-sided pleural effusion. Based on this, the patient was admitted to the hospital and pulmonary consultation was requested. Despite all this, the patient has limited shortness of breath at this point. No cough today. She is afebrile hemodynamically stable. White cell count is not elevated. I reviewed the chest x-ray and there was a large left-sided pleural effusion and I proceeded with thoracentesis today evacuated a total of 900 mL of pleural fluid from the left lung. The procedure was done without any complications. Nevertheless, the follow-up chest x-ray showed a persistent consolidation of the left lung. A CAT scan of the chest was accordingly orders. The CAT scan is still showing significant consolidation of left lower lobe along with some limited loculated pleural effusion the left lung base. No mediastinal lymphadenopathy. A tiny subcentimeter right midlung pulmonary nodule is seen. The fluid cytology is pending. Fluid chemistry is also pending. The patient has a remote history of uterine cancer. She has had partial hysterectomy many years back. Her health maintenance has not been appropriately done. She denies having any mammograms or routine colonoscopies regarding cancer screening. No history of any TB exposure. The patient was seen and evaluated again on 01/17/2017 on the regular medical floor. She is status post left lung thoracentesis. Fluid analysis and pathology is pending. She denies any shortness of breath, cough and congestion. She is maintaining good O2 saturations in the mid 90s on room air. She is maintained on bronchodilators and antibiotics in the form of ceftriaxone and azithromycin. The patient is seen again today on 01/18/2017 in follow-up on the regular medical floor. She is awake and alert in no acute distress. Preliminary pathology report does reveal some atypical cells. Final results are pending. She denies any worsening shortness of breath, cough or congestion. She is maintaining good O2 saturations in the 90s on room air. She is anxious to go home. Objective - Vital Signs Vital signs: Vital Signs Temp 97.6 F 01/18/17 07:00 Pulse 80 01/18/17 11:28 Resp 16 01/18/17 08:00 BP 142/72 01/18/17 07:00 Pulse Ox 95 01/18/17 07:00 Intake & Output 01/17/17 01/18/17 01/18/17 18:59 06:59 18:59 Intake Total 680 Balance 680 Weight 109.769 kg 109.769 kg Intake: Oral 680 Other: Voiding Method Toilet Toilet Toilet # Voids 2 2 2 - Exam Morbidly obese, comfortable.Head exam was generally normal. There was no scleral icterus or corneal arcus. Mucous membranes were moist. My normal neck and the patient has significant crowding of the posterior oropharynx. Lung sounds are diminished in left lung base along with some dullness to percussion. There is adequate air entry on the right lung.Cardiac exam revealed the PMI to be normally situated and sized. The rhythm was regular and no extrasystoles were noted during several minutes of auscultation. The first and second heart sounds were normal and physiologic splitting of the second heart sound was noted. There were no murmurs, rubs, clicks, or gallops.Abdominal exam revealed normal bowel sounds. The abdomen was soft, non-tender, and without masses, organomegaly, or appreciable enlargement of the abdominal aorta.Examination of the extremities revealed easily palpable radial, femoral and pedal pulses. There was no cyanosis, clubbing or edema. - Labs CBC & Chem 7: 01/18/17 07:51 01/18/17 07:51 Labs: Abnormal Lab Results - Last 24 Hours (Table) 01/18/17 01/18/17 Range/Units 07:51 07:51 WBC 13.0 H (3.8-10.6) k/uL Neutrophils # 9.1 H (1.3-7.7) k/uL BUN 18 H (7-17) mg/dL Microbiology - Last 24 Hours (Table) 01/16/17 14:40 Gram Stain - Preliminary Pleural Fluid Body Fluid Culture - Preliminary 01/15/17 16:24 Blood Culture - Preliminary Blood No Growth after 48 hours Assessment and Plan Plan: 1 large left-sided pleural effusion/consolidation. The patient underwent a diagnostic and therapeutic thoracentesis following which a total of 900 mL of pleural fluid aspirated from the left lung without any complications. The follow-up CAT scan of the chest shows significant consolidation in the left lung base/left lower lobe along with some limited loculated pleural effusion without any evidence of intrathoracic malignancy. This was done without contrast nontender the patient has an anaphylactic reaction to contrast exposure in the past. Malignant effusion can not be completely excluded. Awaiting fluid analysis and cytology preliminary of which does reveal some atypical cells. 2 mentally challenged 3 morbid obesity 4 coronary artery disease 5 bronchial asthma 6 he is trying cancer status post hysterectomy. 7 osteoarthritis 8 hypertension 9 hyperlipidemia Plan The patient was seen and evaluated by Dr. Liu. Awaiting fluid cytology however there is some concern regarding underlying malignancy. The patient is cleared for discharge from the pulmonary standpoint. We'll follow her closely in our office in 1 week's time. We'll repeat her chest x-ray then. We'll have fluid analysis and pathology results available by then and if positive will make recommendations for further plan of care. She will complete her course of antibiotics. She and her brother are both encouraged to call sooner with any recurrence of symptoms or other questions or concerns.
--- NOTE | 2017-01-18 20:07 | DS ---
DATE OF ADMISSION: 01/15/2017 DATE OF DISCHARGE: 01/18/2017 FINAL DIAGNOSES: 1. Large left parapneumonic effusion could be from recent pneumonia cannot rule out a malignant component. 2. Morbid obesity, body mass index of 41.5. 3. Mild persistent asthma. 4. Coronary artery disease, history of. 5. Essential hypertension. 6. Primary osteoarthritis of multiple joints, bilateral. 7. Hyperlipidemia. CONSULTATION: Dr. Liu from pulmonary. HOSPITAL COURSE: This patient presented with shortness of breath, treated for pneumonia, found to have a large left-sided pleural effusion, [address] scan of the chest showed significant left pleural effusion. Patient's some cells atypical. Discussed with Dr. Liu today there is concern of underlying malignancy; hence he is going to see her back. On exam: LUNGS: Slightly decreased breath sounds on the left side. Otherwise, the patient is comfortable, sitting up, afebrile, comfortable, eating. DISCHARGE MEDICATIONS: 1. Tenormin 25 mg p.o. daily. 2. Aspirin 81 mg p.o. daily. 3. Tylenol No. 3 1 tablet q.6 p.r.n. 4. Lipitor 40 mg p.o. daily. 5. Zyrtec 10 mg p.o. daily p.r.n. 6. Motrin 600 mg p.o. q.i.d. p.r.n. 7. Ultram 50 mg q.6 p.r.n. 8. Ceftin 500 mg p.o. b.i.d. ten tablets. Follow up with Dr. Kaplan in one week, follow up with Dr. Liu in one week. Discharge planning more than 35 minutes including discussion with Dr. Liu and the patient.
== END 2017-01-18 16:00 | disposition home or self-care (01) | DRG 186 ==
LOC: EC 13:26 → 5MS5E 16:11
PROVIDERS: ADMIT Hospitalist; ATTEND Hospitalist
PROC: 0W9B3ZX Drainage of Left Pleural Cavity, Percutaneous Approach, Diagnostic (ICD-10-PCS; principal; 2017-01-16)
DX: J90 Pleural effusion, not elsewhere classified (principal); J18.9 Pneumonia, unspecified organism; G62.9 Polyneuropathy, unspecified; E66.01 Morbid (severe) obesity due to excess calories; I10 Essential (primary) hypertension; E78.5 Hyperlipidemia, unspecified; I25.10 Atherosclerotic heart disease of native coronary artery without angina pectoris; J45.30 Mild persistent asthma, uncomplicated; M10.9 Gout, unspecified; M15.9 Polyosteoarthritis, unspecified; G43.909 Migraine, unspecified, not intractable, without status migrainosus; F40.240 Claustrophobia; Z68.41 Body mass index [BMI] 40.0-44.9, adult; Z79.82 Long term (current) use of aspirin; Z79.899 Other long term (current) drug therapy; Z85.42 Personal history of malignant neoplasm of other parts of uterus; Z87.891 Personal history of nicotine dependence; Z88.0 Allergy status to penicillin; Z91.041 Radiographic dye allergy status
CPT/HCPCS: 36415; 71010; 71020; 71250; 80048; 80053; 81001; 82945; 83605; 83615; 83735; 83880; 84157; 84484; 85025; 87040; 87070; 87205; 88108; 88305; 88341; 88342; 89050; 93005; 94640; 96365; 96367; 99285

== ENCOUNTER 2017-01-21 17:24 | Inpatient (IN) | payer MEDICARE, OTHER ==
[2017-01-21] MEDS ORDERED: SODIUM CHLORIDE 0.9% 1,000 ML IV STA (17:45)
[2017-01-21] MEDS ORDERED: IPRATROPIUM-ALBUTEROL 3 ML NEB INHALATION STA (17:51)
[2017-01-21 18:41] LABS: Basophils # (A) 0.1 k/uL (0-0.2); Basophils % (A) 1 %; CH 29.6; CHCM 33.3; Eosinophils # (A) 0.2 k/uL (0-0.7); Eosinophils % (A) 1 %; HCT 46.3 % (34.0-46.0); HDW 2.34; HGB 15.2 gm/dL (11.4-16.0); Luc # (Auto) 0.18; Luc % (Auto) 1; Lymphocytes % (A) 15 %; MCH 29.3 pg (25.0-35.0); MCHC 32.7 g/dL (31.0-37.0); MCV 89.6 fL (80.0-100.0); Monocytes # (A) 0.5 k/uL (0-1.0); Monocytes % (A) 4 %; Neutrophils # (A) 9.9 k/uL (1.3-7.7); Neutrophils % (A) 77 %; RBC 5.17 m/uL (3.80-5.40); RDW 14.2 % (11.5-15.5); WBC 12.8 k/uL (3.8-10.6); WBC (Perox) 13.83
--- NOTE | 2017-01-21 18:43 | ED ---
General Adult HPI - General Chief complaint: Shortness of Breath Stated complaint: MAI Time Seen by Provider: 01/21/17 17:45 Source: family, RN notes reviewed, old records reviewed Mode of arrival: wheelchair Limitations: no limitations - History of Present Illness Initial comments: This is a 61-year-old female here with shortness of breath, patient has history of shortness of breath and history of similar symptoms before. Patient suffers from asthma CAD COPD hypertension high cholesterol. Patient recent hospitalization for pleural effusion with severe shortness of breath and thoracentesis, symptoms that she is having now are similar to the symptoms she was having then. No fevers, she has mild increasing cough and congestion. - Related Data Home Medications Medication Instructions Recorded Confirmed Atenolol [Tenormin] 25 mg PO DAILY 08/02/15 01/15/17 Aspirin EC [Ecotrin Low Dose] 81 mg PO DAILY 08/09/16 01/15/17 Acetaminophen with Codeine 1 tab PO Q6H PRN 01/15/17 01/15/17 [Tylenol w/codeine #3] Atorvastatin [Lipitor] 40 mg PO DAILY 01/15/17 01/15/17 Cetirizine HCl [Zyrtec] 10 mg PO DAILY PRN 01/15/17 01/15/17 Ibuprofen [Motrin] 600 mg PO QID PRN 01/15/17 01/15/17 traMADol HCL [Ultram] 50 mg PO Q6H PRN 01/15/17 01/15/17 Previous Rx's Medication Instructions Recorded Cefuroxime Axetil [Ceftin] 500 mg PO BID #10 tab 01/18/17 Allergies Allergy/AdvReac Type Severity Reaction Status Date / Time Iodinated Contrast Media - Allergy Anaphylaxis Verified 01/15/17 14:21 Oral and [Iodinated Contrast Media - IV Dye] Penicillins Allergy Rash/Hives Verified 01/15/17 14:21 Review of Systems ROS Statement: Those systems with pertinent positive or pertinent negative responses have been documented in the HPI. ROS Other: All systems not noted in ROS Statement are negative. Past Medical History Past Medical History: Asthma, Coronary Artery Disease (CAD), Cancer, Eye Disorder, Hyperlipidemia, Hypertension, Osteoarthritis (OA), Pneumonia Additional Past Medical History / Comment(s): Morbid obesity, bronchial asthma, coronary artery disease, hypertension, hyperlipidemia, uterine cancer, osteoarthritis, cataracts, migraines, peripheral neuropathy, episodic urinary tract infections, gout, mentally challenged History of Any Multi-Drug Resistant Organisms: None Reported Past Surgical History: Heart Catheterization, Hysterectomy, Orthopedic Surgery Additional Past Surgical History / Comment(s): Right hand surgery, bilateral bunionectomy, cataract surgery, EGD, colonoscopy, surgery for ingrowing toenails , cardiac catheterization, partial hysterectomy Past Anesthesia/Blood Transfusion Reactions: Motion Sickness Additional Past Anesthesia/Blood Transfusion Reaction / Comment(s): clausterphobia Past Psychological History: No Psychological Hx Reported Additional Psychological History / Comment(s): per pt's sister diallo,pt is menatally challenged, unable to read or write.lives with [id number] , independant no assistive devices when up Smoking Status: Never smoker Past Alcohol Use History: None Reported Additional Past Alcohol Use History / Comment(s): QUIT SMOKING " A LONG TIME AGO " Past Drug Use History: None Reported - Past Family History Mother Family Medical History: Unable to Obtain Father Family Medical History: Unable to Obtain General Exam Limitations: no limitations General appearance: alert, in no apparent distress, anxious Head exam: Present: atraumatic, normocephalic, normal inspection Eye exam: Present: normal appearance, PERRL, EOMI. Absent: scleral icterus, conjunctival injection, periorbital swelling ENT exam: Present: normal exam, mucous membranes moist Neck exam: Present: normal inspection. Absent: tenderness, meningismus, lymphadenopathy Respiratory exam: Present: normal lung sounds bilaterally. Absent: respiratory distress, wheezes, rales, rhonchi, stridor Cardiovascular Exam: Present: regular rate, normal rhythm, normal heart sounds. Absent: systolic murmur, diastolic murmur, rubs, gallop, clicks GI/Abdominal exam: Present: soft, normal bowel sounds. Absent: distended, tenderness, guarding, rebound, rigid Extremities exam: Present: normal inspection, full ROM, normal capillary refill. Absent: tenderness, pedal edema, joint swelling, calf tenderness Back exam: Present: normal inspection Neurological exam: Present: alert, oriented X3, CN II-XII intact Psychiatric exam: Present: normal affect, normal mood Skin exam: Present: warm, dry, intact, normal color. Absent: rash Course Vital Signs 01/21/17 01/21/17 01/21/17 17:29 18:14 18:27 Pulse Rate 75 76 76 Respiratory 16 Rate Blood Pressure 117/62 O2 Sat by Pulse 95 Oximetry 01/21/17 18:29 Pulse Rate Respiratory 24 Rate Blood Pressure O2 Sat by Pulse Oximetry - Reevaluation(s) Reevaluation #1: 01/21/17 18:42 Patient remains with shortness of breath Medical Decision Making - Medical Decision Making 61 female evaluation of shortness of breath. Patient had a recurrent pleural effusion of unknown origin. Patient will be admitted for reevaluation by pulmonology and treatment, monitoring of respiratory status - Radiology Data Radiology results: report reviewed (Chest x-ray positive for pleural effusion recurrent), image reviewed Disposition Clinical Impression: Pleural effusion, Recurrent pleural effusion on right Disposition: ADMITTED IP TO THIS [facility] Condition: Fair Referrals: Antoiln Kaplan MD [Primary Care Provider] - 1-2 days
[2017-01-21 18:49] LABS: ALT 40 U/L (9-52); AST 46 U/L (14-36); Alkaline Phosphatase 93 U/L (38-126); Anion Gap 13 mmol/L; Blood Urea Nitrogen 16 mg/dL (7-17); Calcium 8.8 mg/dL (8.4-10.2); Carbon Dioxide 21 mmol/L (22-30); Chloride 106 mmol/L (98-107); Glucose 94 mg/dL (74-99); Magnesium 1.7 mg/dL (1.6-2.3); Non-African American GFR(MDRD) >60 (>60 ml/min/1.73 sqM); Potassium 5.8 mmol/L (3.5-5.1); Sodium 140 mmol/L (137-145); Total Bilirubin 1.1 mg/dL (0.2-1.3); Total Protein 7.1 g/dL (6.3-8.2)
[2017-01-21 18:57] LABS: INR 1.1 (<1.1)
[2017-01-21 18:59] LABS: Partial Thromboplastin Time 21.7 sec (22.0-30.0)
[2017-01-21 19:09] LABS: Creatine Kinase 50 U/L (30-135)
--- NOTE | 2017-01-21 19:15 | XR ---
EXAMINATION TYPE: XR chest 2V DATE OF EXAM: 01/21/2017 6:48 PM COMPARISON: 01/18/2017 HISTORY: Difficulty breathing TECHNIQUE: Frontal and lateral views of the chest are obtained. FINDINGS: There is opacification of most of the left hemithorax. The right lung is clear. There is n o heart failure. Thoracic aorta shows mild atheromatous change. IMPRESSION: Consolidation and pleural fluid on the left side is slightly worse than last exam. Follo w-up is recommended.
[2017-01-21 19:23] LABS: Creatine Kinase MB 1.5 ng/mL (0.0-2.4); Troponin I <0.012 ng/mL (0.000-0.034)
[2017-01-21] MEDS ORDERED: LORATADINE 10 MG TAB PO PRN (21:51)
[2017-01-21] MEDS: MELATONIN 3 MG TABLET PO SCH (23:47)
[2017-01-21] MEDS: CEFUROXIME 500 MG TABLET PO SCH (23:47)
[2017-01-22] MEDS: IPRATROPIUM-ALBUTEROL 3 ML NEB INHALATION PRN ×3 (07:55→19:59)
[2017-01-22] MEDS: ATORVASTATIN 40 MG TAB PO SCH (08:08)
[2017-01-22] MEDS: ATENOLOL 25 MG TAB PO SCH (08:08)
[2017-01-22] MEDS: ENOXAPARIN 40 MG/0.4 ML SYRINGE SQ SCH ×2 (08:08→14:00)
[2017-01-22] MEDS: CEFUROXIME 500 MG TABLET PO SCH ×2 (08:08→20:35)
[2017-01-22] MEDS: ASPIRIN 81 MG CHEW PO SCH (08:08)
[2017-01-22 08:42] VITALS: BMI 44.4
--- NOTE | 2017-01-22 12:05 | XR ---
EXAMINATION TYPE: XR chest 1V portable DATE OF EXAM: 01/22/2017 11:41 AM Comparison: 01/21/2017 Clinical History: 61-year-old female status post left thoracentesis Findings: Left heart margin remains obscured by adjacent pleural-parenchymal disease. Large left pleural effusi on with associated opacity remains. No appreciable pneumothorax. Right lung and pleural space are sli ghtly clear. Impression: Large left pleural effusion with underlying atelectasis and/or infiltrate remains. No appreciable pne umothorax.
--- NOTE | 2017-01-22 12:09 | US ---
EXAMINATION TYPE: US chest DATE OF EXAM: 01/22/2017 9:37 AM COMPARISON: Radiograph same day CLINICAL HISTORY: 61 year-old female left pleural effusion. TECHNIQUE: Multiple sonographic images of the posterior lower left hemithorax for assessment of pleur al effusion. FINDINGS: EXAM MEASUREMENTS: Left Pleural Effusion fluid pocket: 10.5 cm Left skin surface to fluid distance: 3.5 cm cm Left side marked for possible thoracentesis outside the dept. Pulmonologists are able to review the images in the patient?s EMR. IMPRESSIONS: Large left pleural effusion with underlying atelectatic lung seen. Marking performed.
--- NOTE | 2017-01-22 14:52 | P.GSCN ---
History of Present Illness Consult date: 01/22/17 Reason for Consult: Large left pleural effusion, possible Pleurx cath placement. Requesting physician: Bashir Hogan History of present illness: This 61 year old female presented to ER with significant shortness of breath and increasing cough. She was previously discharged 3 days prior with the same symptoms. On the previous admission, she was noted to have a large left pleural effusion. This was treated with a thoracentesis, draining approximately 900 cc of fluid which was sent for pathology. The path report suggested mesothelioma, but has been sent to [facility] for confirmation. The patient had similar symptoms with this admission, and again a thoracentesis was performed, this time draining 600 cc fluid. Pt is currently sitting up in chair eating lunch. She states she feels much better, and is able to breath easier after this second thoracentesis. Cardiothoracic surgery was consulted for possible pleurex cath placement. Review of Systems 14 point review of systems completed and is negative except as noted. - Cardiovascular Reports leg edema - Respiratory Reports cough, Reports dyspnea Past Medical History Past Medical History: Asthma, Coronary Artery Disease (CAD), Cancer, Eye Disorder, Hyperlipidemia, Hypertension, Osteoarthritis (OA), Pneumonia Additional Past Medical History / Comment(s): Morbid obesity, bronchial asthma, coronary artery disease, hypertension, hyperlipidemia, uterine cancer, osteoarthritis, cataracts, migraines, peripheral neuropathy, episodic urinary tract infections, gout, mentally challenged History of Any Multi-Drug Resistant Organisms: None Reported Past Surgical History: Heart Catheterization, Hysterectomy, Orthopedic Surgery Additional Past Surgical History / Comment(s): Right hand surgery, bilateral bunionectomy, cataract surgery, EGD, colonoscopy, surgery for ingrowing toenails , cardiac catheterization, partial hysterectomy, THORACENTESIS Past Anesthesia/Blood Transfusion Reactions: Motion Sickness Additional Past Anesthesia/Blood Transfusion Reaction / Comm: clausterphobia Past Psychological History: No Psychological Hx Reported Additional Psychological History / Comment(s): per pt's sister diallo,pt is menatally challenged, unable to read or write.lives with [id number] , independant no assistive devices when up Smoking Status: Former smoker Past Alcohol Use History: None Reported Additional Past Alcohol Use History / Comment(s): QUIT SMOKING " A LONG TIME AGO " Past Drug Use History: None Reported - Past Family History Mother Family Medical History: Unable to Obtain Additional Family Medical History / Comment(s): PARKINSONS Father Family Medical History: Unable to Obtain Additional Family Medical History / Comment(s): HEMOCHROMATOSIS Medications and Allergies Home Medications Medication Instructions Recorded Confirmed Type Atenolol [Tenormin] 25 mg PO DAILY 08/02/15 01/21/17 History Aspirin EC [Ecotrin Low Dose] 81 mg PO DAILY 08/09/16 01/21/17 History Atorvastatin [Lipitor] 40 mg PO DAILY 01/15/17 01/21/17 History Cetirizine HCl [Zyrtec] 10 mg PO DAILY PRN 01/15/17 01/21/17 History Ibuprofen [Motrin] 600 mg PO QID PRN 01/15/17 01/21/17 History Allergies Allergy/AdvReac Type Severity Reaction Status Date / Time Iodinated Contrast Media - Allergy Anaphylaxis Verified 01/21/17 19:01 Oral and [Iodinated Contrast Media - IV Dye] Penicillins Allergy Rash/Hives Verified 01/21/17 19:01 Surgical - Exam Vital Signs Pulse Resp BP Pulse Ox 75 16 117/62 95 01/21/17 17:29 01/21/17 17:29 01/21/17 17:29 01/21/17 17:29 - General well developed, well nourished, no distress, no pain, obese - Eyes PERRL - Respiratory Lung sounds were diminished on the left, respirations even, nonlabored. Currently on room air. - Cardiovascular S1, S2 present. Regular rate and rhythm. Trace bilateral lower extremity edema present. - Abdomen Abdomen: soft, non tender, bowel sounds - Genitourinary Deferred - Rectum Deferred - Integumentary no rash - Neurologic normal sensation - Musculoskeletal normal gait - Psychiatric oriented to time, oriented to person, oriented to place Results - Labs 01/21/17 18:26 01/21/17 18:26 - Imaging Chest x-ray: report reviewed, image reviewed CT scan - chest: report reviewed, image reviewed Assessment and Plan (1) Pleural effusion Status: Acute Plan: 1. Will review diagnostics and pathology to make a determination for pleurex cath placement. 2. Continue supportive care. 3. Await path final path report from [facility] as well as cytology report from current thoracentesis. 4. Pulmonary hygiene, encourage to use incentive spirometry 5. Your medical management. Thank you Dr. Hogan for this consult. We look forward to working with you in the care of your patient. Please do not hesitate to contact us with any questions or concerns. Time with Patient: Greater than 30
--- NOTE | 2017-01-22 15:09 | HP ---
DATE OF ADMISSION: 01/21/2017 PRESENTING COMPLAINT: Short of breath. HISTORY OF PRESENTING COMPLAINT: This is a very pleasant 61-year-old patient who was discharged from the hospital not too long ago on 01/18/2017. At that time, patient had a large left-sided effusion, felt to be parapneumonic. At the same time, underlying middle ear component could be ruled out. Fluid was tapped by Dr. Liu. Sent out, pathology is still pending. This was done on 01/16/2017. patient's other medical stable medical conditions include hyperlipidemia, osteoarthritis, hypertension, coronary artery disease. Patient presented with weakness, tired, shortness of breath, cough. Decreased appetite e. Seen by Dr. Hogan earlier today, tapped about 500 mL of fluid yet again and patient feeling weak and tired. REVIEW OF SYSTEMS: CONSTITUTIONAL: Tired. HEENT: None. RESPIRATORY: As above. CARDIOVASCULAR: None. GASTROINTESTINAL: None. MUSCULOSKELETAL: Pain in the joints. DERMATOLOGICAL: None. HEMATOLOGIC: None. LYMPHATICS: None. PSYCHIATRY: Patient is slow with things. NEUROLOGICAL: Moves all 4 limbs. PAST MEDICAL HISTORY: History of asthma, coronary disease, hyperlipidemia, hypertension, osteoarthritis, uterine cancer, cataract, right eye, migraine, gout. PAST SURGICAL HISTORY: Cardiac cath hysterectomy, bilateral bunionectomy, right hand surgery, pleural effusion that was tapped. SOCIAL HISTORY: Not able to read or write, lives with her , telephone number [phone], no smoking. No alcohol. FAMILY HISTORY: Patient does not remember. HOME MEDICATIONS: 1. Motrin 600 p.o. q.i.d. p.r.n. 2. Cetirizine 10 mg p.o. daily p.r.n. 3. Ceftin 500 mg p.o. b.i.d. 4. Tenormin 25 mg p.o. daily. 5. Lipitor 40 mg daily. 6. Aspirin 81 mg daily. Allergies to IV CONTRAST DYE, PENICILLIN. On examination temperature 96.9, pulse 80, respirations 18, blood pressure 111/72, pulse ox 95% on 2 L. GENERAL APPEARANCE: Obese, BMI of 40.4. Sitting up, not in distress. EYES: Pupils equal, conjunctivae normal. HEENT: Oral cavity normal. NECK: JVD not raised. Mass not palpable. Respiratory effort decreased. LUNGS: Decreased breath sounds in the left side. CARDIOVASCULAR: First and second sounds normal. No edema. ABDOMEN: Soft, nontender. Liver and spleen not palpable. LYMPHATIC: No lymph nodes palpable in neck or axillae. PSYCHIATRY: Patient able to answer simple questions. Mood and affect normal. NEUROLOGICAL: Pupils equal. Cranial nerves grossly intact. Power and sensation grossly intact. INVESTIGATIONS: White count 12.8, hemoglobin 15.2, potassium 5.8. Chest x-ray showed large pleural effusion yet again. ASSESSMENT: 1. Recurrent large left pleural effusion, strongly suspicious for underlying malignancy. Patient was tapped recently, not ( ), pathology still pending. 2. Morbid obesity, body mass index of 41.5. 3. Mild persistent asthma. 4. Coronary artery disease. 5. Essential hypertension. 6. Primary osteoarthritis of multiple joints, bilateral. 7. Hyperlipidemia. PLAN: Dr. Hogan was consulted, who did tap the patient. About 500 mL was removed. Talked to the nurse, tried to obtain pathology results. If positive, will need to consult Oncology and probably got a pleural tap to be done. Will follow.
--- NOTE | 2017-01-22 16:41 | P.CNPUL ---
History of Present Illness Consult date: 01/22/17 Requesting physician: Collin Ramirez Reason for consult: pleural effusion Chief complaint: Shortness of breath History of present illness: This is a very pleasant 61-year-old female patient who follows with Dr. Shaw as her primary care physician. She has a history of coronary artery disease, hypertension, hyperlipidemia, morbid obesity, bronchial asthma, uterine cancer, gout. She is mentally challenged. She is a lifelong nonsmoker. She was admitted here on 01/15/2017: Complaints of increasing shortness of breath cough and congestion. She had been treated in the emergency room 2 days prior to that given antibiotics and steroids and released. On that admission she was found to have a large left pleural effusion. She was seen in consultation by Dr. Liu. She had undergone a thoracentesis of fluid of which revealed highly suspicious cells for mesothelioma however this was sent to the [facility] for confirmation and that result is still pending. The patient re-presented here again yesterday with complaints of recurrent shortness of breath and increased dyspnea on minimal exertion. She is again to found to have a recurrent large left pleural effusion. And she is seen today in consultation by Dr. Hogan. She is short of breath with exertion. No significant cough. No hemoptysis. Denies significant weight loss. She is maintaining O2 saturations in the mid 90s on room air. Afebrile. Review of Systems 14 point review of system was conducted. All negative other than as mentioned in the HPI. Past Medical History Past Medical History: Asthma, Coronary Artery Disease (CAD), Cancer, Eye Disorder, Hyperlipidemia, Hypertension, Osteoarthritis (OA), Pneumonia Additional Past Medical History / Comment(s): Morbid obesity, bronchial asthma, coronary artery disease, hypertension, hyperlipidemia, uterine cancer, osteoarthritis, cataracts, migraines, peripheral neuropathy, episodic urinary tract infections, gout, mentally challenged History of Any Multi-Drug Resistant Organisms: None Reported Past Surgical History: Heart Catheterization, Hysterectomy, Orthopedic Surgery Additional Past Surgical History / Comment(s): Right hand surgery, bilateral bunionectomy, cataract surgery, EGD, colonoscopy, surgery for ingrowing toenails , cardiac catheterization, partial hysterectomy, THORACENTESIS Past Anesthesia/Blood Transfusion Reactions: Motion Sickness Additional Past Anesthesia/Blood Transfusion Reaction / Comment(s): clausterphobia Past Psychological History: No Psychological Hx Reported Additional Psychological History / Comment(s): per pt's sister diallo,pt is menatally challenged, unable to read or write.lives with [id number] , independant no assistive devices when up Smoking Status: Former smoker Past Alcohol Use History: None Reported Additional Past Alcohol Use History / Comment(s): QUIT SMOKING " A LONG TIME AGO " Past Drug Use History: None Reported - Past Family History Mother Family Medical History: Unable to Obtain Additional Family Medical History / Comment(s): PARKINSONS Father Family Medical History: Unable to Obtain Additional Family Medical History / Comment(s): HEMOCHROMATOSIS Medications and Allergies Home Medications Medication Instructions Recorded Confirmed Type Atenolol [Tenormin] 25 mg PO DAILY 08/02/15 01/21/17 History Aspirin EC [Ecotrin Low Dose] 81 mg PO DAILY 08/09/16 01/21/17 History Atorvastatin [Lipitor] 40 mg PO DAILY 01/15/17 01/21/17 History Cetirizine HCl [Zyrtec] 10 mg PO DAILY PRN 01/15/17 01/21/17 History Ibuprofen [Motrin] 600 mg PO QID PRN 01/15/17 01/21/17 History Allergies Allergy/AdvReac Type Severity Reaction Status Date / Time Iodinated Contrast Media - Allergy Anaphylaxis Verified 01/21/17 19:01 Oral and [Iodinated Contrast Media - IV Dye] Penicillins Allergy Rash/Hives Verified 01/21/17 19:01 Physical Exam Vitals: Vital Signs Temp Pulse Pulse Pulse Resp BP BP 01/22/17 15:49 76 01/22/17 15:37 68 01/22/17 15:00 96.0 F L 62 20 120/70 01/22/17 08:10 76 01/22/17 07:57 72 01/22/17 07:00 97.8 F 81 20 135/82 01/21/17 23:00 97.8 F 88 20 146/84 01/21/17 20:38 96.8 F L 93 19 144/70 01/21/17 19:54 96.9 F L 80 18 111/72 Pulse Ox 01/22/17 15:49 01/22/17 15:37 01/22/17 15:00 94 L 01/22/17 08:10 01/22/17 07:57 01/22/17 07:00 97 02/27/17 23:00 96 01/21/17 20:38 95 01/21/17 19:54 95 Intake and Output 01/22/17 01/22/17 01/22/17 06:59 14:59 22:59 Intake Total 160 Output Total 600 Balance 160 -600 Intake: Intake, IV Titration 160 Amount Sodium Chloride 0.9% 1, 160 000 ml @ 20 mls/hr IV . Q24H STA Rx#:[id number] Output: Other 600 Other: # Voids 3 Weight 110.223 kg Patient Weight 01/23/17 06:59 Weight 110.223 kg GENERAL EXAM: Morbidly obese. Alert, active, comfortable in no apparent distress. HEAD: Normocephalic. EYES: Normal reaction of pupils, equal size. NOSE: Clear with pink turbinates. THROAT: No erythema or exudates. NECK: No masses, no JVD. CHEST: No chest wall deformity. LUNGS: Equal air entry with crackles and dullness in the left lung. Diminished. CVS: S1 and S2 normal with no audible murmurs, regular rhythm. ABDOMEN: No hepatosplenomegaly, normal bowel sounds, no guarding or rigidity. SPINE: No scoliosis or deformity SKIN: No rashes CENTRAL NERVOUS SYSTEM: No focal deficits, tone is normal in all 4 extremities. Extremities: There is trace peripheral edema. No clubbing, no cyanosis. Peripheral pulses are intact. Results - Laboratory Findings CBC and BMP: 01/21/17 18:26 01/21/17 18:26 PT/INR, D-dimer PT 11.0 sec (9.0-12.0) 01/21/17 18:26 INR 1.1 (<1.1) 01/21/17 18:26 - Diagnostic Findings Chest x-ray: image reviewed (Recurrent left pleural effusion) Assessment and Plan Plan: Impression: #1 Recurrent left pleural effusion. A thoracentesis was performed today with 600-650 MLS removed. #2 Recent admission for large left pleural effusion with approximately 900 L removed secondary to suspected mesothelioma awaiting final pathology from the [facility]. The patient and her family deny any known exposure to asbestos. #3 Mentally challenged. #4 Morbid obesity. #5 Coronary artery disease. #6 Bronchial asthma. #7 History of uterine cancer status post hysterectomy. #8 Osteoarthritis. #9 Hypertension. #10 Hyperlipidemia. : The patient was seen and evaluated by Dr. Hogan. He did go ahead and perform a thoracentesis of the left pleural effusion with the proximal he 600, was removed. We'll send that for pathology as well. We'll await final results from [facility] that may confirm the diagnosis of mesothelioma. In the interim we'll continue with her current medications clued bronchodilators and antibiotics in the form of cefuroxime. She is on Lovenox for DVT prophylaxis. We will also placed a consultation for oncology as well as with cardiothoracic services for possible Pleurx catheter insertion. We will continue to follow and make further recommendations based on her clinical status.
[2017-01-22] MEDS: MELATONIN 3 MG TABLET PO SCH (21:52)
--- NOTE | 2017-01-22 21:59 | PCN ---
DATE OF PROCEDURE: PROCEDURE PERFORMED: Left-sided thoracentesis. PREOPERATIVE DIAGNOSIS: Large left pleural effusion. POSTOPERATIVE DIAGNOSIS: Large left pleural effusion. Anesthesia used: 2 mL of 1% lidocaine. PROCEDURE: The patient was placed in supine position. The area below the left scapula was prepared in a sterile fashion and drapes were applied. Fluid was earlier localized by ultrasound. At the level of the eighth intercostal space, and tip of the scapula, the area was locally anesthetized. Then a 26 gauge needle was inserted into the pleural space until the fluid was localized again. Then a standard thoracentesis catheter and needle were used. Needle was inserted into the same site, advanced into the pleural space until fluid was obtained. Then the catheter was advanced out of the needle into the pleural space and the needle was pulled out of the pleural space. Freely flowing fluid was removed. Roughly 650 mL of a dark yellow fluid was removed, nonbloody from the pleural space. Postoperative chest x-ray showed no evidence of any complications; however, there was basically no change in the appearance of the chest x-ray, hence, we suspect some undergoing pathology involving the pleura possibly mesothelioma. Again, fluid was sent for different diagnostic studies. No complications.
[2017-01-23] MEDS: ATENOLOL 25 MG TAB PO SCH (08:36)
[2017-01-23] MEDS: ENOXAPARIN 40 MG/0.4 ML SYRINGE SQ SCH (08:36)
[2017-01-23 09:01] LABS: Anion Gap 12 mmol/L; Blood Urea Nitrogen 15 mg/dL (7-17); Calcium 8.8 mg/dL (8.4-10.2); Carbon Dioxide 24 mmol/L (22-30); Chloride 105 mmol/L (98-107); Glucose 105 mg/dL (74-99); Non-African American GFR(MDRD) >60 (>60 ml/min/1.73 sqM); Sodium 141 mmol/L (137-145)
[2017-01-23] MEDS: CEFUROXIME 500 MG TABLET PO SCH (10:31)
[2017-01-23] MEDS: ATORVASTATIN 40 MG TAB PO SCH (10:31)
[2017-01-23] MEDS: ASPIRIN 81 MG CHEW PO SCH (10:32)
--- NOTE | 2017-01-23 10:40 | P.PN ---
Subjective Principal diagnosis: Large left pleural effusion, S/P thoracentesis 01/17, 01/22 Pt currently sitting up in bed in no apparent distress. Denies SOB. Denies any questions. Objective - Vital Signs Vital signs: Vital Signs Temp 97.7 F 01/23/17 07:00 Pulse 89 01/23/17 07:00 Resp 21 01/23/17 07:00 BP 165/77 01/23/17 07:00 Pulse Ox 91 L 01/23/17 07:00 Intake & Output 01/22/17 01/23/17 01/23/17 18:59 06:59 18:59 Intake Total 240 300 Output Total 600 Balance -360 300 Weight 110.223 kg Intake: Oral 240 300 Output: Other 600 Other: Voiding Method Toilet # Voids 3 2 1 - Constitutional General appearance: Present: cooperative, morbidly obese, no acute distress - Respiratory Details: Lung sounds diminished, left > right. Resp even/non-labored, currently on room air. - Cardiovascular Details: S1/S2 present, reg rate/rhythm. No edema present. - Gastrointestinal Gastrointestinal Comment(s): Abd soft/NT/ND. Active BS x 4 quad. - Genitourinary Genitourinary Comment(s): Voiding clear, yellow urine. - Musculoskeletal Musculoskeletal: Present: gait normal - Psychiatric Psychiatric: Present: A&O x's 3, appropriate affect, intact judgment & insight - Allied health notes Allied health notes reviewed: nursing - Labs CBC & Chem 7: 01/21/17 18:26 01/23/17 08:32 Labs: Abnormal Lab Results - Last 24 Hours (Table) 01/23/17 Range/Units 08:32 Glucose 105 H (74-99) mg/dL - Imaging and Cardiology Chest x-ray: report reviewed, image reviewed Assessment and Plan (1) Pleural effusion Status: Acute Plan: 1. Will await final path report to make determination regarding pleurex cath. If path indeterminant, may need to perform biopsy at the same time as cath placement. 2. Continue supportive care. 3. Await path final path report from [facility] as well as cytology report from current thoracentesis. 4. Pulmonary hygiene, encourage to use incentive spirometry 5. Your medical management. Time with Patient: Greater than 30
[2017-01-23] MEDS: IPRATROPIUM-ALBUTEROL 3 ML NEB INHALATION PRN ×3 (11:12→19:19)
--- NOTE | 2017-01-23 15:07 | P.PN ---
Subjective Principal diagnosis: Recurrent left pleural effusion This is a very pleasant 61-year-old female patient who follows with Dr. Shaw as her primary care physician. She has a history of coronary artery disease, hypertension, hyperlipidemia, morbid obesity, bronchial asthma, uterine cancer, gout. She is mentally challenged. She is a lifelong nonsmoker. She was admitted here on 01/15/2017: Complaints of increasing shortness of breath cough and congestion. She had been treated in the emergency room 2 days prior to that given antibiotics and steroids and released. On that admission she was found to have a large left pleural effusion. She was seen in consultation by Dr. Liu. She had undergone a thoracentesis of fluid of which revealed highly suspicious cells for mesothelioma however this was sent to the [facility] for confirmation and that result is still pending. The patient re-presented here again yesterday with complaints of recurrent shortness of breath and increased dyspnea on minimal exertion. She is again to found to have a recurrent large left pleural effusion. The patient is seen again today 01/23/2017 in follow-up on the regular medical floor. She had undergone a left-sided thoracentesis with approximately 600 miles removed again yesterday. The plan is for a Pleurx catheter insertion today. We're still waiting for final pathology from her previous thoracentesis on 01/16/2017. Preliminary reports are suggestive of mesothelioma. The case had been sent to the [facility] and we are waiting the results. Presently, she is sitting up in the chair at the bedside. She denies any worsening shortness of breath, cough or congestion. She is breathing easier today as compared to yesterday. She is maintaining good O2 saturations in the mid 90s on room air. Afebrile. Objective - Vital Signs Vital signs: Vital Signs Temp 97.7 F 01/23/17 07:00 Pulse 76 01/23/17 11:26 Resp 21 01/23/17 07:00 BP 165/77 01/23/17 07:00 Pulse Ox 91 L 01/23/17 07:00 Intake & Output 01/22/17 01/23/17 01/23/17 18:59 06:59 18:59 Intake Total 240 300 Output Total 600 Balance -360 300 Weight 110.223 kg Intake: Oral 240 300 Output: Other 600 Other: Voiding Method Toilet # Voids 3 2 1 - Exam GENERAL EXAM: Alert, active, comfortable in no apparent distress. HEAD: Normocephalic. EYES: Normal reaction of pupils, equal size. NOSE: Clear with pink turbinates. THROAT: No erythema or exudates. NECK: No masses, no JVD. CHEST: No chest wall deformity. LUNGS: Equal air entry with crackles in the left posterior base. Diminished.. CVS: S1 and S2 normal with no audible murmurs, regular rhythm. ABDOMEN: No hepatosplenomegaly, normal bowel sounds, no guarding or rigidity. SPINE: No scoliosis or deformity SKIN: No rashes CENTRAL NERVOUS SYSTEM: No focal deficits, tone is normal in all 4 extremities. Extremities: There is trace peripheral edema. No clubbing, no cyanosis. Peripheral pulses are intact. - Labs CBC & Chem 7: 01/21/17 18:26 01/23/17 08:32 Labs: Abnormal Lab Results - Last 24 Hours (Table) 01/23/17 Range/Units 08:32 Glucose 105 H (74-99) mg/dL Assessment and Plan Plan: Impression: #1 Recurrent left pleural effusion. A thoracentesis was performed yesterday with 600-650 MLS removed. Plans are for Pleurx catheter after results from [facility] are obtained, if inconclusive the plan is for biopsy during Pleurx catheter insertion. #2 Recent admission for large left pleural effusion with approximately 900 L removed secondary to suspected mesothelioma awaiting final pathology from the [facility]. The patient and her family deny any known exposure to asbestos. #3 Mentally challenged. #4 Morbid obesity. #5 Coronary artery disease. #6 Bronchial asthma. #7 History of uterine cancer status post hysterectomy. #8 Osteoarthritis. #9 Hypertension. #10 Hyperlipidemia. : The patient was seen and evaluated by Dr. Hogan. We'll await final results from [facility] that may confirm the diagnosis of mesothelioma. If those results are inconclusive we will obtain a biopsy during the Pleurx catheter insertion by cardiothoracic services. If confirmed for mesothelioma just the Pleurx catheter will be inserted. In the interim, we'll continue with her current medications including bronchodilators and antibiotics in the form of cefuroxime. She is on Lovenox for DVT prophylaxis. We will continue to follow and make further recommendations based on her clinical status.
[2017-01-23] MEDS: IBUPROFEN 600 MG TAB PO PRN (15:48)
--- NOTE | 2017-01-23 20:46 | P.CONS ---
History of Present Illness - Reason for Consult Consult date: 01/23/17 Recurrent pleural effusions - History of Present Illness The patient is 61-year-old lady with a history of a continent of speech defect. She had come in to the emergency room and 01/13/17, complaining of some shortness of breath and cough. Chest x-ray at that time revealed possible left lower infiltrate with small effusion. The patient was started on antibiotics, without much improvement . In fact she had some progressive shortness of breath. She therefore came back to the emergency room on 01/15/17. Chest x-ray now revealed increasing size of the pleural effusion. A computed tomography scan of the chest was done, which confirmed a large left pleural effusion. No other definite lung mass, adenopathy, or other lesions were noted in the field of view. She underwent a thoracentesis, and was subsequently discharged. The fluid cytology was read as atypical and suspicious for mesothelioma but not definitive. It was therefore sent to the [facility]. Consult from them is pending. This The patient did have some improvement of her thoracentesis, but her symptoms didn't recur. She therefore came back to the emergency room. Chest x-ray done this admission again showed reasonable aeration of the pleural effusion. She was therefore admitted for further management. She has undergone a another thoracentesis around 650 mL plus this admission. Consult was therefore placed for further evaluation and recommendations Review of Systems Constitutional: Reports fatigue, Reports weakness, Reports weight loss Eyes: denies blurred vision, denies pain Ears: deny: decreased hearing, ear discharge, earache, tinnitus Ears, nose, mouth and throat: Denies headache, Denies sore throat Cardiovascular: Reports shortness of breath Respiratory: Reports cough with sputum, Reports dyspnea Gastrointestinal: Denies abdominal pain, Denies diarrhea, Denies nausea, Denies vomiting Genitourinary: Denies dysuria, Denies hematuria Menstruation: Reports postmenopausal Musculoskeletal: Denies myalgias Integumentary: Denies pruritus, Denies rash Neurological: Reports change in speech (: Denies), Reports weakness Psychiatric: Denies anxiety, Denies depression Endocrine: Reports weight change Hematologic/Lymphatic: Reports as per HPI Past Medical History Past Medical History: Asthma, Coronary Artery Disease (CAD), Cancer, Eye Disorder, Hyperlipidemia, Hypertension, Osteoarthritis (OA), Pneumonia Additional Past Medical History / Comment(s): Morbid obesity, bronchial asthma, coronary artery disease, hypertension, hyperlipidemia, uterine cancer, osteoarthritis, cataracts, migraines, peripheral neuropathy, episodic urinary tract infections, gout, mentally challenged History of Any Multi-Drug Resistant Organisms: None Reported Past Surgical History: Heart Catheterization, Hysterectomy, Orthopedic Surgery Additional Past Surgical History / Comment(s): Right hand surgery, bilateral bunionectomy, cataract surgery, EGD, colonoscopy, surgery for ingrowing toenails , cardiac catheterization, partial hysterectomy, THORACENTESIS Past Anesthesia/Blood Transfusion Reactions: Motion Sickness Additional Past Anesthesia/Blood Transfusion Reaction / Comm: clausterphobia Past Psychological History: No Psychological Hx Reported Additional Psychological History / Comment(s): per pt's sister diallo,pt is menatally challenged, unable to read or write.lives with [id number] , independant no assistive devices when up Smoking Status: Former smoker Past Alcohol Use History: None Reported Additional Past Alcohol Use History / Comment(s): QUIT SMOKING " A LONG TIME AGO " Past Drug Use History: None Reported - Past Family History Mother Family Medical History: Unable to Obtain Additional Family Medical History / Comment(s): PARKINSONS Father Family Medical History: Unable to Obtain Additional Family Medical History / Comment(s): HEMOCHROMATOSIS Medications and Allergies Home Medications Medication Instructions Recorded Confirmed Type Atenolol [Tenormin] 25 mg PO DAILY 08/02/15 01/21/17 History Aspirin EC [Ecotrin Low Dose] 81 mg PO DAILY 08/09/16 01/21/17 History Atorvastatin [Lipitor] 40 mg PO DAILY 01/15/17 01/21/17 History Cetirizine HCl [Zyrtec] 10 mg PO DAILY PRN 01/15/17 01/21/17 History Ibuprofen [Motrin] 600 mg PO QID PRN 01/15/17 01/21/17 History Allergies Allergy/AdvReac Type Severity Reaction Status Date / Time Iodinated Contrast Media - Allergy Anaphylaxis Verified 01/21/17 19:01 Oral and [Iodinated Contrast Media - IV Dye] Penicillins Allergy Rash/Hives Verified 01/21/17 19:01 Physical Exam Vitals: Vital Signs Temp Pulse Pulse Resp BP Pulse Ox 01/23/17 19:39 76 01/23/17 19:21 74 01/23/17 15:54 80 01/23/17 15:36 77 01/23/17 15:00 98 F 75 19 151/84 96 01/23/17 11:26 76 01/23/17 11:12 78 01/23/17 07:00 97.7 F 89 21 165/77 91 L 01/22/17 23:00 97.6 F 80 18 137/58 92 L Intake and Output 01/23/17 01/23/17 01/23/17 06:59 14:59 22:59 Intake Total 0 Balance 0 Intake: Oral 0 Other: Voiding Method Toilet # Voids 2 3 - Constitutional General appearance: no acute distress - EENT Eyes: EOMI, PERRLA ENT: hearing grossly normal, normal oropharynx - Neck Neck: no lymphadenopathy Thyroid: bilateral: normal size - Respiratory Respiratory: left: diminished, dullness - Cardiovascular Rhythm: regular Heart sounds: normal: S1, S2 - Gastrointestinal General gastrointestinal: normal bowel sounds, soft - Integumentary Integumentary: normal - Neurologic Dysarthria Neurologic: CNII-XII intact - Musculoskeletal Musculoskeletal: strength equal bilaterally - Psychiatric Psychiatric: A&O x's 3, appropriate affect Results CBC & Chem 7: 01/21/17 18:26 01/23/17 08:32 Labs: Abnormal Lab Results - Last 24 Hours (Table) 01/23/17 Range/Units 08:32 Glucose 105 H (74-99) mg/dL Chest x-ray: report reviewed (From 01/13/17, 01/15/17, and this admission) CT scan - chest: report reviewed, image reviewed Assessment and Plan (1) Pleural effusion Narrative/Plan: The patient's initial clinical picture appeared to be suggestive for pneumonia in the left lower lobe. At that time she had a small full effusion. Subsequent to despite antibiotics, she developed a large left pleural effusion. This has been recurrent despite thoracentesis 2. Cytology from thoracentesis from her previous admission, were suspicious for mesothelioma, but not definitive. Clinical picture is definitely suspicious for malignancy. The above clinical impression was discussed in detail with the patient and her brother. Consult from the [facility] on the cytology from her previous thoracentesis is pending. Cytology was also ordered on the fluid drawn this admission and is also pending. We will await finalization of those results. The patient is being seen by cardiology thoracic surgery, and Pleurx catheter is planned. Additional fluid will also be sent on sample collected from the catheter. If malignancy, specifically mesothelioma which is suspected, as confirmed, the patient will need a PET scan for completion of staging as an outpatient. She does not appear to have any other areas of obvious disease on computed tomography scan. If cytology from the above-mentioned studies is still nondiagnostic, the patient will need a thoracoscopic procedure for further workup Status: Acute
[2017-01-23] MEDS: MELATONIN 3 MG TABLET PO SCH (20:58)
--- NOTE | 2017-01-24 06:09 | PN ---
DATE OF SERVICE: 01/23/2017 PRESENTING COMPLAINT: Short of breath. INTERVAL HISTORY: This is a patient with recurrent left pleural effusion, status post being drained. Pathology still pending to return from [facility]. Sitting up. Patient's brother at the bedside. Questions about getting a ( ) in place. Question also about pleural biopsy. Review of systems done for constitutional, cardiovascular, GI, pulmonary; relevant findings as above. Current medications are reviewed. On examination, temperature 98, pulse 75, respirations 19, blood pressure 151/84, pulse ox 96% on room air. GENERAL APPEARANCE: Sitting up, comfortable. EYES: Pupils equal. Conjunctivae normal. NECK: JVD not raised. Mass not palpable. RESPIRATORY: Effort normal. LUNGS: Decreased breath on the left side. CARDIOVASCULAR: First and second sounds normal. No edema. ABDOMEN: Soft, nontender. Liver and spleen not palpable. PSYCHIATRY: Alert and oriented x3. Mood and affect normal. INVESTIGATIONS: No blood work from today. ASSESSMENT: 1. Recurrent large left pleural effusion, strongly suspicious for underlying malignancy pending fluid results to come back from [facility]. 2. Morbid obesity, body mass index of 41.5. 3. Mild persistent asthma. 4. Coronary artery disease. 5. Essential hypertension. 6. Primary osteoarthritis of multiple joints, bilateral. 7. Hyperlipidemia. 8. Mental delay, chronic. PLAN: Continue current medication and treatment plan. Care was discussed with brother at the bedside. Await pathology results and go from there. Actually patient's labs show potassium of 4 today.
[2017-01-24] MEDS: IPRATROPIUM-ALBUTEROL 3 ML NEB INHALATION PRN ×4 (06:56→20:55)
[2017-01-24] MEDS: ENOXAPARIN 40 MG/0.4 ML SYRINGE SQ SCH (07:21)
[2017-01-24] MEDS: ATORVASTATIN 40 MG TAB PO SCH (07:22)
[2017-01-24] MEDS: ATENOLOL 25 MG TAB PO SCH (07:22)
[2017-01-24] MEDS: ASPIRIN 81 MG CHEW PO SCH (07:22)
[2017-01-24] MEDS: IBUPROFEN 600 MG TAB PO PRN ×3 (09:20→21:47)
--- NOTE | 2017-01-24 12:40 | XR ---
EXAMINATION TYPE: XR chest 2V DATE OF EXAM: 01/24/2017 12:35 PM COMPARISON: 01/22/2017 TECHNIQUE: PA and lateral views submitted. HISTORY: Pleural effusion FINDINGS: There is persistent near complete opacification left hemithorax. Heart is enlarged. The right lung is clear. No obvious pneumothorax. Arthropathy of the shoulders. IMPRESSION: 1. Stable near complete opacification of the left hemithorax likely representing a combination of ple ural fluid and consolidation.
--- NOTE | 2017-01-24 13:01 | P.PN ---
Subjective Principal diagnosis: Large left pleural effusion, S/P thoracentesis 01/17, 01/22 Pt currently sitting up in bed in no apparent distress. Denies SOB. Denies any questions. Objective - Vital Signs Vital signs: Vital Signs Temp 97.0 F L 01/24/17 07:00 Pulse 76 01/24/17 11:16 Resp 16 01/24/17 07:00 BP 155/79 01/24/17 07:00 Pulse Ox 95 01/24/17 07:00 Intake & Output 01/23/17 01/24/17 01/24/17 18:59 06:59 18:59 Weight 108.465 kg Other: Voiding Method Toilet Toilet # Voids 3 1 - Constitutional General appearance: Present: cooperative, no acute distress - Respiratory Details: Currently on room air Respiratory: bilateral: diminished - Cardiovascular Rhythm: regular Heart sounds: normal: S1, S2 - Gastrointestinal Gastrointestinal Comment(s): abd soft, NT/ND, active bowel sounds x 4 quad - Genitourinary Genitourinary Comment(s): voiding clear yellow urine - Musculoskeletal Musculoskeletal: Present: gait normal - Psychiatric Psychiatric: Present: A&O x's 3, appropriate affect, intact judgment & insight - Allied health notes Allied health notes reviewed: nursing - Labs CBC & Chem 7: 01/21/17 18:26 01/23/17 08:32 - Imaging and Cardiology Chest x-ray: report reviewed, image reviewed Assessment and Plan (1) Pleural effusion Status: Acute Plan: 1. Will await final path report to make determination regarding pleurex cath. If path indeterminant, may need to perform biopsy at the same time as cath placement. 2. Continue supportive care. 3. Await path final path report from [facility] as well as cytology report from current thoracentesis. 4. Pulmonary hygiene, encourage to use incentive spirometry 5. Your medical management. Time with Patient: Greater than 30
--- NOTE | 2017-01-24 13:21 | P.PN ---
Subjective Principal diagnosis: Recurrent left pleural effusion This is a very pleasant 61-year-old female patient who follows with Dr. Shaw as her primary care physician. She has a history of coronary artery disease, hypertension, hyperlipidemia, morbid obesity, bronchial asthma, uterine cancer, gout. She is mentally challenged. She is a lifelong nonsmoker. She was admitted here on 01/15/2017: Complaints of increasing shortness of breath cough and congestion. She had been treated in the emergency room 2 days prior to that given antibiotics and steroids and released. On that admission she was found to have a large left pleural effusion. She was seen in consultation by Dr. Liu. She had undergone a thoracentesis of fluid of which revealed highly suspicious cells for mesothelioma however this was sent to the [facility] for confirmation and that result is still pending. The patient re-presented here again yesterday with complaints of recurrent shortness of breath and increased dyspnea on minimal exertion. She is again to found to have a recurrent large left pleural effusion. The patient is seen again today 01/23/2017 in follow-up on the regular medical floor. She had undergone a left-sided thoracentesis with approximately 600 miles removed again yesterday. The plan is for a Pleurx catheter insertion today. We're still waiting for final pathology from her previous thoracentesis on 01/16/2017. Preliminary reports are suggestive of mesothelioma. The case had been sent to the [facility] and we are waiting the results. Presently, she is sitting up in the chair at the bedside. She denies any worsening shortness of breath, cough or congestion. She is breathing easier today as compared to yesterday. She is maintaining good O2 saturations in the mid 90s on room air. Afebrile. The patient is seen again today 01/24/2017 in follow-up on the regular medical floor. She is currently sitting up in chair at the bedside. She is awake and alert in no acute distress. She denies any worsening shortness of breath, cough or congestion. She is however dyspneic on minimal exertion. She is maintaining good O2 saturations at 95% on room air at rest. Her chest x-ray continues to show persistent near complete opacification of the left hemithorax representing a combination of pleural fluid and consolidation. The pathology from the [facility] is inconclusive. The plan will be for lung biopsy during the Pleurx catheter insertion as pleural fluid has not yielded any confirmation of suspected mesothelioma. The patient and her sister and brother are aware and agreeable to the plan. Objective - Vital Signs Vital signs: Vital Signs Temp 97.0 F L 01/24/17 07:00 Pulse 76 01/24/17 11:16 Resp 16 01/24/17 07:00 BP 155/79 01/24/17 07:00 Pulse Ox 95 01/24/17 07:00 Intake & Output 01/23/17 01/24/17 01/24/17 18:59 06:59 18:59 Weight 108.465 kg Other: Voiding Method Toilet Toilet # Voids 3 1 - Exam GENERAL EXAM: Alert, active, comfortable in no apparent distress. HEAD: Normocephalic. EYES: Normal reaction of pupils, equal size. NOSE: Clear with pink turbinates. THROAT: No erythema or exudates. NECK: No masses, no JVD. CHEST: No chest wall deformity. LUNGS: Equal air entry with crackles in the left posterior base. Diminished.. CVS: S1 and S2 normal with no audible murmurs, regular rhythm. ABDOMEN: No hepatosplenomegaly, normal bowel sounds, no guarding or rigidity. SPINE: No scoliosis or deformity SKIN: No rashes CENTRAL NERVOUS SYSTEM: No focal deficits, tone is normal in all 4 extremities. Extremities: There is trace peripheral edema. No clubbing, no cyanosis. Peripheral pulses are intact. - Labs CBC & Chem 7: 01/21/17 18:26 01/23/17 08:32 Assessment and Plan Plan: Impression: #1 Recurrent left pleural effusion. A thoracentesis was performed with 600-650 MLS removed. The pathology sent to [facility] is also inconclusive for suspected mesothelioma. The plan will be for lung biopsy during Pleurx catheter placement. #2 Recent admission for large left pleural effusion with approximately 900 L removed secondary to suspected mesothelioma however the [facility] was unable to provide a final diagnosis. #3 Mentally challenged. #4 Morbid obesity. #5 Coronary artery disease. #6 Bronchial asthma. #7 History of uterine cancer status post hysterectomy. #8 Osteoarthritis. #9 Hypertension. #10 Hyperlipidemia. : The patient was seen and evaluated by Dr. Hogan. Her chest x-ray was reviewed. There is continued near complete opacification of the left hemithorax. Results from the [facility] again are inconclusive of suspected mesothelioma. The plan will be to obtain a biopsy during the Pleurx catheter insertion by cardiothoracic services. In the interim, we'll continue with her current medications including bronchodilators and antibiotics in the form of cefuroxime. She is on Lovenox for DVT prophylaxis. We will increase her activity as tolerated and continue to monitor her O2 saturations. We will continue to follow and make further recommendations based on her clinical status.
[2017-01-24] MEDS: MELATONIN 3 MG TABLET PO SCH (21:49)
[2017-01-25] MEDS: IPRATROPIUM-ALBUTEROL 3 ML NEB INHALATION PRN ×2 (07:08→11:40)
--- NOTE | 2017-01-25 07:16 | PN ---
DATE OF SERVICE: 01/24/2017 PRESENTING COMPLAINT: Short of breath. INTERVAL HISTORY: This is a patient with recurrent left pleural effusion. Pathology latest report from [facility] is noncommittal suggestive of mesothelioma, but not for sure . Today, I spoke with Dr. Hogan and Citlaly from cardiothoracic team, would like to get a pleural biopsy done to be definitive so we can proceed accordingly. The patient is sitting up. Breathing is relatively comfortable. Review of systems done for constitutional, cardiovascular, GI, pulmonary; relevant findings as above. Current medications are reviewed. On examination, temperature 97, pulse 75, respirations 16, blood pressure 155/79, pulse ox 95% on room air. GENERAL APPEARANCE: Sitting up, comfortable. EYES: Pupils equal. Conjunctivae normal. NECK: JVD not raised. Mass not palpable. RESPIRATORY: Effort increased. LUNGS: Bronchial breathing on the left side. CARDIOVASCULAR: First and second sounds normal. No edema. ABDOMEN: Soft, nontender. Liver and spleen not palpable. PSYCHIATRY: Alert and oriented x3. Mood and affect normal. INVESTIGATIONS: A chest x-ray, near complete opacification of the left hemithorax combination of pleural fluid and consolidation. ASSESSMENT: 1. Recurrent large left pleural effusion, strongly suspicious for malignancy ( ) pleural effusion. At this point looking at pleural biopsy along with pleural fluid drainage. 2. Morbid obesity, body mass index of 41.5. 3. Mild persistent asthma. 4. Coronary artery disease. 5. Essential hypertension. 6. Primary osteoarthritis multiple joints, bilateral. 7. Hyperlipidemia. 8. Mental delay, chronic. PLAN: At this point , decision has been made to proceed with pleural biopsy and ( ) placement. Will follow.
[2017-01-25] MEDS: ENOXAPARIN 40 MG/0.4 ML SYRINGE SQ SCH (07:57)
[2017-01-25] MEDS: ASPIRIN 81 MG CHEW PO SCH (07:57)
[2017-01-25] MEDS: ATENOLOL 25 MG TAB PO SCH (09:36)
[2017-01-25] MEDS: ATORVASTATIN 40 MG TAB PO SCH (09:36)
--- NOTE | 2017-01-25 11:40 | P.PN ---
Subjective Principal diagnosis: Recurrent left pleural effusion This is a very pleasant 61-year-old female patient who follows with Dr. Shaw as her primary care physician. She has a history of coronary artery disease, hypertension, hyperlipidemia, morbid obesity, bronchial asthma, uterine cancer, gout. She is mentally challenged. She is a lifelong nonsmoker. She was admitted here on 01/15/2017: Complaints of increasing shortness of breath cough and congestion. She had been treated in the emergency room 2 days prior to that given antibiotics and steroids and released. On that admission she was found to have a large left pleural effusion. She was seen in consultation by Dr. Liu. She had undergone a thoracentesis of fluid of which revealed highly suspicious cells for mesothelioma however this was sent to the [facility] for confirmation and that result is still pending. The patient re-presented here again yesterday with complaints of recurrent shortness of breath and increased dyspnea on minimal exertion. She is again to found to have a recurrent large left pleural effusion. The patient is seen again today 01/23/2017 in follow-up on the regular medical floor. She had undergone a left-sided thoracentesis with approximately 600 miles removed again yesterday. The plan is for a Pleurx catheter insertion today. We're still waiting for final pathology from her previous thoracentesis on 01/16/2017. Preliminary reports are suggestive of mesothelioma. The case had been sent to the [facility] and we are waiting the results. Presently, she is sitting up in the chair at the bedside. She denies any worsening shortness of breath, cough or congestion. She is breathing easier today as compared to yesterday. She is maintaining good O2 saturations in the mid 90s on room air. Afebrile. The patient is seen again today 01/24/2017 in follow-up on the regular medical floor. She is currently sitting up in chair at the bedside. She is awake and alert in no acute distress. She denies any worsening shortness of breath, cough or congestion. She is however dyspneic on minimal exertion. She is maintaining good O2 saturations at 95% on room air at rest. Her chest x-ray continues to show persistent near complete opacification of the left hemithorax representing a combination of pleural fluid and consolidation. The pathology from the [facility] is inconclusive. The plan will be for lung biopsy during the Pleurx catheter insertion as pleural fluid has not yielded any confirmation of suspected mesothelioma. The patient and her sister and brother are aware and agreeable to the plan. Patient was reevaluated today on 01/25/2017, and she is doing well, awaiting surgery, thoracoscopy and possible Pleurx catheter placement and lung biopsy to be done today. Patient is relatively asymptomatic, labs are reviewed and they seem to be unremarkable. Objective - Vital Signs Vital signs: Vital Signs Temp 96.9 F L 01/25/17 07:00 Pulse 80 01/25/17 07:10 Resp 18 01/25/17 07:00 BP 105/68 01/25/17 07:00 Pulse Ox 96 01/25/17 07:10 Intake & Output 01/24/17 01/25/17 01/25/17 18:59 06:59 18:59 Weight 108.465 kg 112 kg Other: Voiding Method Toilet # Voids 3 1 # Bowel Movements 0 - Exam GENERAL EXAM: Alert, active, comfortable in no apparent distress. HEAD: Normocephalic. EYES: Normal reaction of pupils, equal size. NOSE: Clear with pink turbinates. THROAT: No erythema or exudates. NECK: No masses, no JVD. CHEST: No chest wall deformity. LUNGS: Equal air entry with crackles in the left posterior base. Diminished.. CVS: S1 and S2 normal with no audible murmurs, regular rhythm. ABDOMEN: No hepatosplenomegaly, normal bowel sounds, no guarding or rigidity. SPINE: No scoliosis or deformity SKIN: No rashes CENTRAL NERVOUS SYSTEM: No focal deficits, tone is normal in all 4 extremities. Extremities: There is trace peripheral edema. No clubbing, no cyanosis. Peripheral pulses are intact. - Labs CBC & Chem 7: 01/21/17 18:26 01/23/17 08:32 Assessment and Plan Plan: #1 Recurrent left pleural effusion. A thoracentesis was performed with 600-650 MLS removed. The pathology sent to [facility] is also inconclusive for suspected mesothelioma. The plan will be for lung biopsy during Pleurx catheter placement. #2 Recent admission for large left pleural effusion with approximately 900 L removed secondary to suspected mesothelioma however the [facility] was unable to provide a final diagnosis. #3 Mentally challenged. #4 Morbid obesity. #5 Coronary artery disease. #6 Bronchial asthma. #7 History of uterine cancer status post hysterectomy. #8 Osteoarthritis. #9 Hypertension. #10 Hyperlipidemia. Recommendation: Patient is scheduled to undergo thoracoscopic surgery today, she will have a pleural/lung biopsy, and she would likely have a Pleurx catheter placement. We'll continue to follow. : Time with Patient: Less than 30
[2017-01-25] MEDS ORDERED: DEXAMETHASONE SOD PHOSPHATE 10 MG/ML 1 ML VIAL IV ONE (13:22)
[2017-01-25] MEDS ORDERED: ONDANSETRON 4 MG/2 ML VIAL IVP ONE (13:22)
[2017-01-25] MEDS ORDERED: LACTATED RINGERS 1,000 ML IV ONE (13:32)
[2017-01-25] MEDS ORDERED: METOPROLOL TARTRATE 5 MG/5 ML VIAL IVP ONE (13:36)
[2017-01-25] MEDS ORDERED: SUCCINYLCHOLINE CHLORIDE 100 MG/5 ML SYR IV ONE (13:36)
[2017-01-25] MEDS ORDERED: ONDANSETRON 4 MG/2 ML VIAL ONE (13:36)
[2017-01-25] MEDS ORDERED: GLYCOPYRROLATE 0.2 MG/ML 2 ML VIAL ONE (13:36)
[2017-01-25] MEDS ORDERED: fentaNYL (PF) 50 MCG/ML 2 ML AMP ONE (13:36)
[2017-01-25] MEDS ORDERED: LIDOCAINE 1% INJ 10MG/ML (20 ML MDV) ONE (13:36)
[2017-01-25] MEDS ORDERED: NEOSTIGMINE 1 MG/ML 10 ML VIAL ONE (13:36)
[2017-01-25] MEDS ORDERED: ROCURONIUM BROMIDE 10 MG/ML 10 ML VIAL IV ONE (13:36)
[2017-01-25] MEDS ORDERED: PROPOFOL 10 MG/ML 20 ML VIAL IV ONE (13:36)
[2017-01-25] MEDS ORDERED: SODIUM CHLORIDE 0.9% 100 ML with ceFAZolin 2,000 MG IV ONE ×2 (13:56)
[2017-01-25] MEDS ORDERED: ceFAZolin 2 GM in SODIUM CHLORIDE 0.9% 100 ML IVPB ONE (14:54)
--- NOTE | 2017-01-25 16:24 | XR ---
EXAMINATION TYPE: XR chest 1V portable DATE OF EXAM: 01/25/2017 4:17 PM COMPARISON: 01/24/2017 INDICATION: Pleural catheter placement TECHNIQUE: Single frontal view of the chest is obtained. FINDINGS: The heart size is mildly prominent. The pulmonary vasculature is normal. There is a focal opacity in the left upper lung field. Mild infiltrate may be at the left base. The p revious large left pleural effusion is not identified. There is report of a catheter placement. The catheter is not identified. There is a left apical pneum othorax. IMPRESSION: 1. Right apical pneumothorax. 2. Near complete resolution left pleural effusion. 3. Reporting catheter is not identified on these images. 4. Report was called to Candido, the patient's nurse, by telephone by Dr. Gaytan 1620 hours 01/25/2017
--- NOTE | 2017-01-25 19:49 | PN ---
DATE OF SERVICE: 01/25/2017 PRESENTING COMPLAINT: Short of breath. INTERVAL HISTORY: This is a patient on recent admission treated for pneumonia and had pleural fluid drained, pathology from [facility] was nonconclusive suggestive of mesothelioma, hence it was decided to proceed with lung biopsy today for more definitive answer, which patient is scheduled later today. The patient has a large amount of fluid and consolidation of the left side. Family is at the bedside. Review of systems done for constitutional, cardiovascular, GI, pulmonary; relevant findings as above. Current medications are reviewed. On examination, temperature 96.9, pulse 85, respiration 18, blood pressure 154/104, pulse ox 100 percent on 2 liters. GENERAL APPEARANCE: Sitting up in a chair, comfortable. EYES: Pupils equal. Conjunctivae normal. NECK: JVD not raised. Mass not palpable. RESPIRATORY: Effort increased. LUNGS: Bronchial breathing, on the left side. CARDIOVASCULAR: First and second sounds normal. No edema. ABDOMEN: Soft, nontender. Liver and spleen not palpable. PSYCHIATRY: Alert and oriented x3. Mood and affect normal. INVESTIGATIONS: No blood work from today. ASSESSMENT: 1. Recurrent large left pleural effusion ( ) strongly suspicious for malignancy pending pleural biopsy today with prior fluid that was inconclusive for mesothelioma. 2. Moderate obesity, body with a BMI of 41.5. 3. Mild persistent asthma. 4. Coronary artery disease. 5. Essential hypertension. 6. Primary osteoarthritis of multiple joints, bilateral. 7. Hyperlipidemia. 8. Mental delay chronic. PLAN: Awaiting pleural biopsy today. Patient also will have Pleur-Evac placed. Once that is done, hopefully the patient can be discharged in 24 hours and come back after the biopsy is done and further treatment accordingly. This was discussed with the patient's family at the bedside. Follow.
--- NOTE | 2017-01-25 21:08 | OP ---
DATE OF SERVICE: 01/25/2017 SURGEON: Janis Flores MD CARD PLACER: Anuel TOLBERT PREOPERATIVE DIAGNOSIS: Recurrent left pleural effusion; rule out mesothelioma. POSTOPERATIVE DIAGNOSIS: Likely malignant effusion; pending pathology. OPERATION: 1. Fiberoptic bronchoscopy. 2. Left video thoracoscopic exploration with biopsy of the visceral pleural nodular deposits and insertion of a PleurX drainage catheter. ANESTHESIA: ESTIMATED BLOOD LOSS: SPECIMENS REMOVED: COMPLICATIONS: INDICATION FOR SURGERY: Patient is a 61-year-old woman who over the last 10 days underwent 2 left-sided thoracocenteses that yielded a dark yellowish fluid. The first specimen was suspicious for mesothelioma and the second specimen was essentially showing some mesothelial cells with mild atypia. In view of the lack of diagnosis and the recurrent effusion, patient is offered left video thoracoscopic exploration, biopsy and insertion of a PleurX catheter. Risks, benefits and alternatives were discussed with her and her family. They understood and agreed to proceed. DESCRIPTION OF THE PROCEDURE: Patient was brought to the operating room, where double-lumen endotracheal general anesthesia was induced uneventfully. Patient was put in a 3/4 right-side decubitus. The chest and abdomen were both prepped and draped using ChloraPrep. Patient received 2 grams of cefazolin intravenously. Sequential compression stockings were applied to both lower extremities. Fiberoptic bronchoscopy before and after positioning confirmed the proper positioning of the ET tube. The airway appeared grossly normal. The left lung was deflated and a 1.5 cm incision was made at the level of the mid axillary line, seventh intercostal space. Access to the pleural cavity yielded a large amount of dark yellowish fluid; close to 1800 mL. A 10 mm 0-degree thoracoscope was inserted via a 10.5 mm Thoracoport and that immediately revealed the presence of multiple nodular masses on the visceral pleura of the left lower and left upper lobes. There were no deposits noted on the visualized part of the parietal pleura. Several biopsies with punch forceps that were inserted along the camera were performed. Once this was done we made a 0.5 cm incision in the left upper quadrant and tunneled a PleurX catheter to the camera site port and used that access to push the PleurX into the posterior sulcus. The position of the PleurX was confirmed with the camera. Once this was done, the catheter was affixed to the skin using silk and the access incision was closed in layers using Vicryl 2-0 for the fascia, 2-0 for the subcutaneous tissue, and 3-0 for the skin in subcuticular manner. Skin glue was applied. Patient tolerated the procedure well. The lung had been fully re-inflated. Patient will be taken to the recovery room, extubated, in stable condition. ARTHUR
[2017-01-25] MEDS: MELATONIN 3 MG TABLET PO SCH (21:33)
[2017-01-25] MEDS: ACETAMINOPHEN TAB 325 MG TAB PO PRN (21:34)
--- NOTE | 2017-01-26 07:49 | XR ---
EXAMINATION TYPE: XR chest 2V DATE OF EXAM: 01/26/2017 6:49 AM COMPARISON: 01/25/2017 INDICATION: Pneumothorax, pleural catheter placement TECHNIQUE: Single frontal view of the chest is obtained. FINDINGS: The heart size is normal. The pulmonary vasculature is normal. There is opacification of the left perihilar region. Air-fluid levels present at the left base. Subcu taneous air is lateral to the chest wall. The left apical pneumothorax is increased slightly in size in the previous examination. A catheter is not identified IMPRESSION: 1. Mild increase in size in the left apical pneumothorax. 2. Developing small to moderate fluid at the left base
[2017-01-26] MEDS: ENOXAPARIN 40 MG/0.4 ML SYRINGE SQ SCH (08:21)
[2017-01-26] MEDS: ASPIRIN 81 MG CHEW PO SCH (08:21)
[2017-01-26] MEDS: ATENOLOL 25 MG TAB PO SCH (08:21)
[2017-01-26] MEDS: ATORVASTATIN 40 MG TAB PO SCH (08:21)
[2017-01-26] MEDS: ACETAMINOPHEN TAB 325 MG TAB PO PRN (11:18)
--- NOTE | 2017-01-26 12:33 | P.PN ---
Subjective Principal diagnosis: Recurrent left pleural effusion This is a very pleasant 61-year-old female patient who follows with Dr. Shaw as her primary care physician. She has a history of coronary artery disease, hypertension, hyperlipidemia, morbid obesity, bronchial asthma, uterine cancer, gout. She is mentally challenged. She is a lifelong nonsmoker. She was admitted here on 01/15/2017: Complaints of increasing shortness of breath cough and congestion. She had been treated in the emergency room 2 days prior to that given antibiotics and steroids and released. On that admission she was found to have a large left pleural effusion. She was seen in consultation by Dr. Liu. She had undergone a thoracentesis of fluid of which revealed highly suspicious cells for mesothelioma however this was sent to the [facility] for confirmation and that result is still pending. The patient re-presented here again yesterday with complaints of recurrent shortness of breath and increased dyspnea on minimal exertion. She is again to found to have a recurrent large left pleural effusion. The patient is seen again today 01/23/2017 in follow-up on the regular medical floor. She had undergone a left-sided thoracentesis with approximately 600 miles removed again yesterday. The plan is for a Pleurx catheter insertion today. We're still waiting for final pathology from her previous thoracentesis on 01/16/2017. Preliminary reports are suggestive of mesothelioma. The case had been sent to the [facility] and we are waiting the results. Presently, she is sitting up in the chair at the bedside. She denies any worsening shortness of breath, cough or congestion. She is breathing easier today as compared to yesterday. She is maintaining good O2 saturations in the mid 90s on room air. Afebrile. The patient is seen again today 01/24/2017 in follow-up on the regular medical floor. She is currently sitting up in chair at the bedside. She is awake and alert in no acute distress. She denies any worsening shortness of breath, cough or congestion. She is however dyspneic on minimal exertion. She is maintaining good O2 saturations at 95% on room air at rest. Her chest x-ray continues to show persistent near complete opacification of the left hemithorax representing a combination of pleural fluid and consolidation. The pathology from the [facility] is inconclusive. The plan will be for lung biopsy during the Pleurx catheter insertion as pleural fluid has not yielded any confirmation of suspected mesothelioma. The patient and her sister and brother are aware and agreeable to the plan. Patient was reevaluated today on 01/25/2017, and she is doing well, awaiting surgery, thoracoscopy and possible Pleurx catheter placement and lung biopsy to be done today. Patient is relatively asymptomatic, labs are reviewed and they seem to be unremarkable. The patient is seen again today 01/26/2017 in follow-up. She is awake and alert in no acute distress. She did undergo arthroscopy and biopsy along with the Pleurx catheter placement yesterday. She is somewhat nauseated currently. She is not feeling as well as she has been. She is quite fatigued. She does continue to maintain good O2 saturations in the mid 90s on room air. She's been afebrile. No worsening shortness of breath. She is utilizing Tylenol for surgical site pain. Objective - Vital Signs Vital signs: Vital Signs Temp 97.4 F L 01/26/17 07:00 Pulse 70 01/26/17 07:00 Resp 18 01/26/17 07:00 BP 135/63 01/26/17 07:00 Pulse Ox 95 01/26/17 07:44 Intake & Output 01/25/17 01/26/17 01/26/17 18:59 06:59 18:59 Intake Total 800 240 Output Total 5 Balance 795 240 Weight 107.1 kg Intake: IV 800 Oral 240 Output: Estimated Blood Loss 5 Other: # Voids 2 # Bowel Movements 0 - Exam GENERAL EXAM: Alert, active, comfortable in no apparent distress. HEAD: Normocephalic. EYES: Normal reaction of pupils, equal size. NOSE: Clear with pink turbinates. THROAT: No erythema or exudates. NECK: No masses, no JVD. CHEST: No chest wall deformity. LUNGS: Equal air entry with crackles in the left posterior base. Diminished. Dressing to the left chest is dry and intact. Pleurx catheter in place. CVS: S1 and S2 normal with no audible murmurs, regular rhythm. ABDOMEN: No hepatosplenomegaly, normal bowel sounds, no guarding or rigidity. SPINE: No scoliosis or deformity SKIN: No rashes CENTRAL NERVOUS SYSTEM: No focal deficits, tone is normal in all 4 extremities. Extremities: There is trace peripheral edema. No clubbing, no cyanosis. Peripheral pulses are intact. - Labs CBC & Chem 7: 01/21/17 18:26 01/23/17 08:32 Assessment and Plan Plan: Impression: #1 Recurrent left pleural effusion. A thoracentesis was performed with 600-650 MLS removed. The pathology sent to [facility] is also inconclusive for suspected mesothelioma. She had undergone fiberoptic bronchoscopy with left video assisted thoracoscopic exploration with biopsy of the visceral pleural masses and insertion of a Pleurx drainage catheter. Postoperative day # 1. #2 Recent admission for large left pleural effusion with approximately 900 L removed secondary to suspected mesothelioma however the [facility] was unable to provide a final diagnosis. #3 Mentally challenged. #4 Morbid obesity. #5 Coronary artery disease. #6 Bronchial asthma. #7 History of uterine cancer status post hysterectomy. #8 Osteoarthritis. #9 Hypertension. #10 Hyperlipidemia. : The patient was seen and evaluated by Dr. Hogan. Her chest x-ray was reviewed. There is left apical pneumothorax slightly increased in size. There is also developing small to moderate fluid at the left lung base. Results from the [facility] again are inconclusive of suspected mesothelioma. We will await thorascopic biopsy results. In the interim, we'll continue with her current medications. She is on Lovenox for DVT prophylaxis. We will increase her activity as tolerated and continue to monitor her O2 saturations. We will continue to follow and make further recommendations based on her clinical status.
[2017-01-26] MEDS: ONDANSETRON 4 MG/2 ML VIAL IVP PRN (12:57)
[2017-01-26 13:34] LABS: Basophils % (A) 0 %; CH 29.1; CHCM 32.1; Eosinophils # (A) 0.1 k/uL (0-0.7); Eosinophils % (A) 1 %; HCT 40.2 % (34.0-46.0); HDW 2.36; Luc # (Auto) 0.12; Luc % (Auto) 1; Lymphocytes # (A) 1.7 k/uL (1.0-4.8); Lymphocytes % (A) 11 %; MCH 29.5 pg (25.0-35.0); MCHC 32.3 g/dL (31.0-37.0); MCV 91.2 fL (80.0-100.0); Mean Platelet Volume 8.1; Monocytes # (A) 0.4 k/uL (0-1.0); Monocytes % (A) 3 %; Neutrophils # (A) 12.8 k/uL (1.3-7.7); Neutrophils % (A) 84 %; RBC 4.41 m/uL (3.80-5.40); RDW 14.1 % (11.5-15.5); WBC 15.2 k/uL (3.8-10.6); WBC (Perox) 15.17
[2017-01-26 13:39] LABS: ALT 35 U/L (9-52); AST 33 U/L (14-36); Alkaline Phosphatase 74 U/L (38-126); Anion Gap 12 mmol/L; Blood Urea Nitrogen 16 mg/dL (7-17); Calcium 8.6 mg/dL (8.4-10.2); Carbon Dioxide 19 mmol/L (22-30); Chloride 103 mmol/L (98-107); Glucose 139 mg/dL (74-99); Non-African American GFR(MDRD) >60 (>60 ml/min/1.73 sqM); Potassium 4.8 mmol/L (3.5-5.1); Sodium 134 mmol/L (137-145); Total Bilirubin 0.9 mg/dL (0.2-1.3); Total Protein 5.9 g/dL (6.3-8.2)
--- NOTE | 2017-01-26 13:46 | P.PN ---
Progress Note - Text Thoracic Surgery Nursing Note Day #1, S/P Left video thorascopic exploration with biopsy of the visceral pleural masses and insertion of a PleurX drainage catheter, Fiberoptic bronchoscopy. Pt is awake and alert, sitting in chair. Pt states that her shortness of breath is greatly improved. Vital Signs - 24 hr 01/25/17 01/25/17 01/25/17 14:50 15:05 15:20 Temperature 98.1 F Pulse Rate [ 97 94 93 Pulse Oximetery ] Pulse Rate [ 84 68 65 Right] Respiratory 14 16 16 Rate Blood Pressure 199/92 174/78 155/72 [Right Arm] O2 Sat by Pulse 97 94 L 93 L Oximetry 01/25/17 01/25/17 01/25/17 15:35 15:50 16:05 Temperature Pulse Rate [ 93 93 93 Pulse Oximetery ] Pulse Rate [ 69 65 60 Right] Respiratory 16 16 16 Rate Blood Pressure 148/70 159/76 158/74 [Right Arm] O2 Sat by Pulse 93 L 93 L 92 L Oximetry 01/25/17 01/25/17 01/25/17 16:20 16:35 16:50 Temperature Pulse Rate [ 93 93 93 Pulse Oximetery ] Pulse Rate [ 65 64 67 Right] Respiratory 16 16 16 Rate Blood Pressure 152/75 145/73 129/60 [Right Arm] O2 Sat by Pulse 93 L 93 L 93 L Oximetry 01/25/17 01/25/17 01/26/17 17:30 23:00 07:00 Temperature 97.1 F L 97.4 F L Pulse Rate [ 64 70 Pulse Oximetery ] Pulse Rate [ Right] Respiratory 16 18 18 Rate Blood Pressure 126/66 135/63 [Right Arm] O2 Sat by Pulse 94 L 95 Oximetry 01/26/17 07:44 Temperature Pulse Rate [ Pulse Oximetery ] Pulse Rate [ Right] Respiratory Rate Blood Pressure [Right Arm] O2 Sat by Pulse 95 Oximetry Short CBC 01/26/17 Range/Units 13:13 WBC 15.2 H (3.8-10.6) k/uL Hgb 13.0 (11.4-16.0) gm/dL Hct 40.2 (34.0-46.0) % Plt Count 370 (150-450) k/uL Neutrophils # 12.8 H (1.3-7.7) k/uL BMP 01/26/17 13:13 Sodium 134 L Potassium 4.8 Chloride 103 Carbon Dioxide 19 L BUN 16 Creatinine 0.87 Glucose 139 H Calcium 8.6 Liver Function 01/26/17 Range/Units 13:13 Total Bilirubin 0.9 (0.2-1.3) mg/dL AST 33 (14-36) U/L ALT 35 (9-52) U/L Alkaline Phosphatase 74 (38-126) U/L Albumin 3.0 L (3.5-5.0) g/dL PleurX catheter intact. Plan: Day #1 VATS good progress okay for discharge from thoracic surgery perspective once PleurX Catheter drainage teaching is completed.
--- NOTE | 2017-01-26 14:38 | PN ---
Patient was treated for pneumonia and had pleural fluid drained and patient is being evaluated and pleural fluid is suggestive of mesothelioma. Patient has a chest tube in place and patient has minimal pneumothorax and that is being taken care of by cardiothoracic surgery. The patient is having nausea as well as vomiting. We will treat her symptomatically. Will make sure patient is on gastrointestinal cocktail. Patient is on ibuprofen, which probably needs to be discontinued and we will start her on tramadol instead. Patient probably will be discharged tomorrow. REVIEW OF SYSTEMS: CARDIOVASCULAR: No chest pain, no orthopnea, no PND, no palpitations. PULMONARY: Denied any shortness of breath. No cough or hemoptysis. GASTROINTESTINAL: As described in HPI. NEUROLOGIC: No headaches, no weakness, no numbness. Medications were reviewed. PHYSICAL EXAMINATION: VITAL SIGNS: Temperature 97.4, pulse of 70, respiratory rate of 18, blood pressure 135/63, saturating at 97% on room air. GENERAL: The patient is alert and oriented x3, not in any acute distress. Well developed, well nourished. HEENT: Pupils are round and equally reacting to light. EOMI. No scleral icterus. No conjunctival pallor. Normocephalic, atraumatic. No pharyngeal erythema. No thyromegaly. CARDIOVASCULAR: S1 and S2 present. No murmurs, rubs, or gallops. PULMONARY: The patient does not have any wheezing. Patient does have a chest tube on the left side and is complaining of some pain on the left side. I am unable to appreciate any breath sounds clearly because patient is unable to take deep breaths because of the chest tube and is complaining of pain in that area. ABDOMEN: Soft, nontender, nondistended, normoactive bowel sounds. No palpable organomegaly. MUSCULOSKELETAL: No joint swelling or deformity. EXTREMITIES: No cyanosis, clubbing, or pedal edema. NEUROLOGICAL: Gross neurological examination did not reveal any focal deficits. SKIN: No rashes. LABORATORY DATA: None available. ASSESSMENT AND PLAN: 1. 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 Patient has a chest tube in place and pleural catheter in place. 2. Obesity. 3. Mild persistent asthma. 4. Coronary artery disease. 5. Hypertension. 6. Osteoarthritis. 7. Hyperlipidemia. 8. Nausea and vomiting, probably due to gastritis. Patient will be started on Protonix and discontinue ibuprofen. She will be started on tramadol. I will treat her symptomatically and see how she does tomorrow.
[2017-01-26] MEDS: traMADol 50 MG TAB PO PRN ×2 (15:31→21:42)
[2017-01-26] MEDS: PANTOPRAZOLE 40 MG/10 ML VIAL IVP SCH (15:32)
[2017-01-26] MEDS: MELATONIN 3 MG TABLET PO SCH (21:35)
[2017-01-27] MEDS: traMADol 50 MG TAB PO PRN (03:32)
[2017-01-27] MEDS: ONDANSETRON 4 MG/2 ML VIAL IVP PRN (07:22)
[2017-01-27] MEDS: PANTOPRAZOLE 40 MG/10 ML VIAL IVP SCH (07:25)
[2017-01-27] MEDS: ATENOLOL 25 MG TAB PO SCH (07:25)
[2017-01-27] MEDS: ATORVASTATIN 40 MG TAB PO SCH (07:25)
[2017-01-27] MEDS: ASPIRIN 81 MG CHEW PO SCH (07:26)
[2017-01-27] MEDS: ENOXAPARIN 40 MG/0.4 ML SYRINGE SQ SCH (07:26)
[2017-01-27 07:58] VITALS: BP 104/63; PULSE 69; RESP 18; TEMP 97.6
--- NOTE | 2017-01-27 08:48 | XR ---
EXAMINATION TYPE: XR chest 2V DATE OF EXAM: 01/27/2017 8:28 AM COMPARISON: 01/26/2017 INDICATION: Pleural effusion TECHNIQUE: Single frontal view of the chest is obtained. FINDINGS: The heart size is mildly prominent. The pulmonary vasculature is normal. There is a left apical pneumothorax. This has a similar appearance prior study. Opacity in the left u pper lung field slightly smaller. There is a left pleural fluid collection. Air-fluid level is identi fied in lateral projection. IMPRESSION: 1. Stable left apical pneumothorax. 2. Stable moderate left pleural fluid collection
--- NOTE | 2017-01-27 09:13 | P.PN ---
<Mason Jacobs T - Last Filed: 01/27/17 09:03> Progress Note - Text Thoracic Surgery Nursing POD: #2, fiberoptic bronchoscopy, left video-assisted thorascopic exploration with biopsy of the visceral pleural masses and insertion of a Pleurx drainage catheter Patient awake and alert, no distress noted, patient complains of significant nausea. Vital Signs: Afebrile, T-max 97.6F Vital Signs - 24 hr 01/26/17 01/26/17 01/27/17 15:00 23:00 07:00 Temperature 96.7 F L 97.1 F L 97.6 F Pulse Rate [ 64 71 69 Pulse Oximetery ] Respiratory 18 17 18 Rate Blood Pressure 112/65 121/54 104/63 [Right Arm] O2 Sat by Pulse 97 93 L 95 Oximetry 01/27/17 07:36 Temperature Pulse Rate [ Pulse Oximetery ] Respiratory Rate Blood Pressure [Right Arm] O2 Sat by Pulse 93 L Oximetry Lungs: Respirations are even and nonlabored, breath sounds diminished on the left side to auscultation O2 sat: 93% on room air Abdomen: Soft, Positive bowel sounds present in all 4 quadrants. Pleurx catheter was evidently connected to drainage system sometime yesterday with 120 mL of serosanguineous drainage so far. Plan: Continue current treatment Medical management of her nausea Pleurx catheter drainage teaching prior to discharge <Adarsh Alvarez - Last Filed: 01/27/17 11:52> Progress Note - Text The patient was seen and examined. I agree with the above assessment and plan. Chest x-ray today is essentially unchanged from yesterday. She still has a left apical space. Her oxygen saturation is 93-95% on room air. Her Pleurx catheter drained approximately 120 mL of serosanguineous fluid overnight. We capped it this morning. She is stable for discharge home from our standpoint. Home teaching for Pleurx care has been arranged.
--- NOTE | 2017-01-27 13:06 | P.PN ---
Subjective Principal diagnosis: Recurrent left pleural effusion This is a very pleasant 61-year-old female patient who follows with Dr. Shaw as her primary care physician. She has a history of coronary artery disease, hypertension, hyperlipidemia, morbid obesity, bronchial asthma, uterine cancer, gout. She is mentally challenged. She is a lifelong nonsmoker. She was admitted here on 01/15/2017: Complaints of increasing shortness of breath cough and congestion. She had been treated in the emergency room 2 days prior to that given antibiotics and steroids and released. On that admission she was found to have a large left pleural effusion. She was seen in consultation by Dr. Liu. She had undergone a thoracentesis of fluid of which revealed highly suspicious cells for mesothelioma however this was sent to the [facility] for confirmation and that result is still pending. The patient re-presented here again yesterday with complaints of recurrent shortness of breath and increased dyspnea on minimal exertion. She is again to found to have a recurrent large left pleural effusion. The patient is seen again today 01/23/2017 in follow-up on the regular medical floor. She had undergone a left-sided thoracentesis with approximately 600 miles removed again yesterday. The plan is for a Pleurx catheter insertion today. We're still waiting for final pathology from her previous thoracentesis on 01/16/2017. Preliminary reports are suggestive of mesothelioma. The case had been sent to the [facility] and we are waiting the results. Presently, she is sitting up in the chair at the bedside. She denies any worsening shortness of breath, cough or congestion. She is breathing easier today as compared to yesterday. She is maintaining good O2 saturations in the mid 90s on room air. Afebrile. The patient is seen again today 01/24/2017 in follow-up on the regular medical floor. She is currently sitting up in chair at the bedside. She is awake and alert in no acute distress. She denies any worsening shortness of breath, cough or congestion. She is however dyspneic on minimal exertion. She is maintaining good O2 saturations at 95% on room air at rest. Her chest x-ray continues to show persistent near complete opacification of the left hemithorax representing a combination of pleural fluid and consolidation. The pathology from the [facility] is inconclusive. The plan will be for lung biopsy during the Pleurx catheter insertion as pleural fluid has not yielded any confirmation of suspected mesothelioma. The patient and her sister and brother are aware and agreeable to the plan. Patient was reevaluated today on 01/25/2017, and she is doing well, awaiting surgery, thoracoscopy and possible Pleurx catheter placement and lung biopsy to be done today. Patient is relatively asymptomatic, labs are reviewed and they seem to be unremarkable. Reevaluated today on 01/27/2017, patient is postoperative day #2, she underwent fiberoptic bronchoscopy, left video-assisted thoracoscopic exploration and biopsy of the visceral pleural masses and insertion of a Pleurx drainage catheter. Patient continues to have intermittent episodes of nausea, chest x- ray is showing small apical left sided pneumothorax, Pleurx catheter remains in place, and it is functioning. Patient denies any cough no wheezing no shortness of breath. She mostly has intermittent nausea since her surgery yesterday. No abdominal pain no fever no chills no hemoptysis no melena no hematemesis. Objective - Vital Signs Vital signs: Vital Signs Temp 97.6 F 01/27/17 07:00 Pulse 69 01/27/17 07:00 Resp 18 01/27/17 07:00 BP 104/63 01/27/17 07:00 Pulse Ox 93 L 01/27/17 07:36 Intake & Output 01/26/17 01/27/17 01/27/17 18:59 06:59 18:59 Intake Total 240 240 Output Total 105 Balance 240 135 Weight 109 kg Intake: Oral 240 240 Output: Chest Tube Drainage 105 Chest Tube 105 Other: # Voids 4 1 # Bowel Movements 0 - Exam GENERAL EXAM: Alert, active, comfortable in no apparent distress. HEAD: Normocephalic. EYES: Normal reaction of pupils, equal size. NOSE: Clear with pink turbinates. THROAT: No erythema or exudates. NECK: No masses, no JVD. CHEST: No chest wall deformity. LUNGS: Equal air entry with crackles in the left posterior base. Diminished.. Pleurx catheter is noted on the left side CVS: S1 and S2 normal with no audible murmurs, regular rhythm. ABDOMEN: No hepatosplenomegaly, normal bowel sounds, no guarding or rigidity. SPINE: No scoliosis or deformity SKIN: No rashes CENTRAL NERVOUS SYSTEM: No focal deficits, tone is normal in all 4 extremities. Extremities: There is trace peripheral edema. No clubbing, no cyanosis. Peripheral pulses are intact. - Labs CBC & Chem 7: 01/26/17 13:13 01/26/17 13:13 Labs: Abnormal Lab Results - Last 24 Hours (Table) 01/26/17 01/26/17 Range/Units 13:13 13:13 WBC 15.2 H (3.8-10.6) k/uL Neutrophils # 12.8 H (1.3-7.7) k/uL Sodium 134 L (137-145) mmol/L Carbon Dioxide 19 L (22-30) mmol/L Glucose 139 H (74-99) mg/dL Total Protein 5.9 L (6.3-8.2) g/dL Albumin 3.0 L (3.5-5.0) g/dL Assessment and Plan Plan: #1 Recurrent left pleural effusion. A thoracentesis was performed with 600-650 MLS removed. The pathology sent to [facility] is also inconclusive for suspected mesothelioma. She had undergone fiberoptic bronchoscopy with left video assisted thoracoscopic exploration with biopsy of the visceral pleural masses and insertion of a Pleurx drainage catheter. Postoperative day # 2 #2 Recent admission for large left pleural effusion with approximately 900 L removed secondary to suspected mesothelioma however the [facility] was unable to provide a final diagnosis. #3 Mentally challenged. #4 Morbid obesity. #5 Coronary artery disease. #6 Bronchial asthma. #7 History of uterine cancer status post hysterectomy. #8 Osteoarthritis. #9 Hypertension. #10 Hyperlipidemia. #11 small apical left sided pneumothorax, iatrogenic. Post VATS. Recommendation: Agree with discharge planning, follow-up with us on outpatient basis patient has an appointment already with Dr. Liu. Time with Patient: Less than 30
--- NOTE | 2017-01-27 15:04 | DS ---
DATE OF ADMISSION: 01/21/2017 DATE OF DISCHARGE: 01/27/2017 Patient is admitted with pleural effusion secondary to possible mesothelioma. Patient underwent left-sided pleural drainage and patient Cardiothoracic Surgery evaluated the patient and Pulmonary evaluated the patient. Patient is cleared to be discharged. Patient has a PleurX catheter in place and PleurX catheter care counseling was provided to the patient. Patient is clinically doing well. Patient was having nausea yesterday secondary to gastritis, improved with treatment of gastritis. Patient will be discharged on Prilosec, tramadol instead of ibuprofen for pain. Patient is otherwise clinically doing well. Patient will be discharged today. Patient was seen and examined on the day of discharge. Vitals are stable. PHYSICAL EXAMINATION: GENERAL: The patient is alert and oriented x3, not in any acute distress. Well developed, well nourished. HEENT: Pupils are round and equally reacting to light. EOMI. No scleral icterus. No conjunctival pallor. Normocephalic, atraumatic. No pharyngeal erythema. No thyromegaly. CARDIOVASCULAR: S1 and S2 present. No murmurs, rubs, or gallops. RESPIRATORY: Patient has a left-sided chest tube. ABDOMEN: Soft, nontender, nondistended, normoactive bowel sounds. No palpable organomegaly. MUSCULOSKELETAL: No joint swelling or deformity. EXTREMITIES: No cyanosis, clubbing, or pedal edema. NEUROLOGICAL: Gross neurological examination did not reveal any focal deficits. SKIN: No rashes. FINAL DIAGNOSES: 1. 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 Patient was treated for pneumonia as well although there is no significant evidence of pneumonia. 2. Obesity. 3. Mild persistent asthma. 4. Coronary artery disease. 5. Hypertension. 6. Osteoarthritis. 7. Hyperlipidemia. 8. Gastritis. Please refer to my depart summary for further details of discharge summary. Activity as tolerated. Cardiac diet. Follow with Dr. Antolin Kaplan in 3 to 7 days. [facility] will follow the patient. Patient will follow with Dr. Nazario Liu on January 30, 2017. Spent greater than 35 minutes in total discharge process.
== END 2017-01-27 14:01 | disposition home health service (06) | DRG 167 ==
LOC: EC 17:24 → 4MS4W 18:43
PROVIDERS: ADMIT Hospitalist; ATTEND Hospitalist
PROC: 0W9B3ZX Drainage of Left Pleural Cavity, Percutaneous Approach, Diagnostic (ICD-10-PCS; 2017-01-22)
PROC: 0BBP4ZX Excision of Left Pleura, Percutaneous Endoscopic Approach, Diagnostic (ICD-10-PCS; 2017-01-25)
PROC: 0W9B40Z Drainage of Left Pleural Cavity with Drainage Device, Percutaneous Endoscopic Approach (ICD-10-PCS; principal; 2017-01-25 10:45)
DX: C45.0 Mesothelioma of pleura (principal); J93.83 Other pneumothorax; J91.0 Malignant pleural effusion; G62.9 Polyneuropathy, unspecified; J44.9 Chronic obstructive pulmonary disease, unspecified; I10 Essential (primary) hypertension; J45.30 Mild persistent asthma, uncomplicated; I25.10 Atherosclerotic heart disease of native coronary artery without angina pectoris; E78.5 Hyperlipidemia, unspecified; K29.70 Gastritis, unspecified, without bleeding; E78.00 Pure hypercholesterolemia, unspecified; R47.1 Dysarthria and anarthria; M19.91 Primary osteoarthritis, unspecified site; H26.9 Unspecified cataract; R53.1 Weakness; M10.9 Gout, unspecified; G43.909 Migraine, unspecified, not intractable, without status migrainosus; Z87.891 Personal history of nicotine dependence; Z90.710 Acquired absence of both cervix and uterus; Z79.82 Long term (current) use of aspirin; Z82.0 Family history of epilepsy and other diseases of the nervous system; Z88.0 Allergy status to penicillin; Z85.42 Personal history of malignant neoplasm of other parts of uterus; Z87.01 Personal history of pneumonia (recurrent); Z87.440 Personal history of urinary (tract) infections; Z91.041 Radiographic dye allergy status; Z98.49 Cataract extraction status, unspecified eye; Z83.2 Family history of diseases of the blood and blood-forming organs and certain disorders involving the immune mechanism; Z79.1 Long term (current) use of non-steroidal anti-inflammatories (NSAID); Z79.899 Other long term (current) drug therapy
CPT/HCPCS: 36415; 71010; 71020; 76604; 80048; 80053; 82550; 82553; 83735; 83880; 84484; 85025; 85610; 85730; 86850; 86900; 86901; 87040; 88108; 88305; 88341; 88342; 94640; 94760; 99285

== ENCOUNTER → 2017-02-06 | Outpatient (CLI) | payer MEDICARE, OTHER ==
--- NOTE | 2017-02-06 13:00 | US ---
EXAMINATION TYPE: US venous doppler duplex LE RT DATE OF EXAM: 02/06/2017 12:46 PM COMPARISON: NONE CLINICAL HISTORY: R22.41 Foot Swelling Rt. Right leg pain and swelling SIDE PERFORMED: Right VESSELS IMAGED: External Iliac Vein (EIV) Common Femoral Vein Deep Femoral Vein Greater Saphenous Vein * Femoral Vein Popliteal Vein Small Saphenous Vein * Proximal Calf Veins (* superficial vessels) Findings: Right Leg: Spontaneous flow and normal compressibility as visualized. Phone call attempted to Dr's office, no answer IMPRESSION: 1. No diagnostic evidence of DVT as visualized.
== END | disposition home or self-care (01) ==
LOC: RADUSWWP 11:56
PROVIDERS: ATTEND Family Medicine
DX: R22.41 Localized swelling, mass and lump, right lower limb (principal)

== ENCOUNTER 2017-02-11 17:50 | Emergency (ER) | payer MEDICARE, OTHER ==
--- NOTE | 2017-02-11 20:51 | XR ---
EXAMINATION TYPE: XR chest 2V DATE OF EXAM: 02/11/2017 8:41 PM COMPARISON: 01/27/2017 HISTORY: Short of breath TECHNIQUE: Frontal and lateral views of the chest are obtained. FINDINGS: There is combined pleural fluid and consolidation in the left lower lobe. I see no pneumot horax. Trachea is midline. Right lung is clear. There is no heart failure. IMPRESSION: Left lower lobe consolidation with left pleural effusion that is improved compared to la st exam. There is clearing of the pleural air compared to last exam. No heart failure.
--- NOTE | 2017-02-11 21:16 | ED ---
SOB HPI - General Chief Complaint: Shortness of Breath Stated Complaint: Drain plugged Time Seen by Provider: 02/11/17 20:06 Source: patient, family Mode of arrival: ambulatory - History of Present Illness Initial Comments: This 61-year-old white female presents complaining some shortness of breath which is worse with any exertion. She has a history of mesothelioma with recurrent left pleural effusions. She had a Pleurx catheter placed into her left chest last month. Her home visiting nurse came out today and was then able to drain any fluid. She was seen by her primary care nurse practitioner today and she had an x-ray. They thought she had fluid in her left lung and sent her to the ER to evaluate. They seem to think that the catheter could be clogged. She denies any actual chest pain, fever or other complaints or modifying factors. - Related Data Home Medications Medication Instructions Recorded Confirmed Atenolol [Tenormin] 25 mg PO BID 08/02/15 02/11/17 Atorvastatin [Lipitor] 40 mg PO DAILY 01/15/17 02/11/17 Clotrimazole/Betamethasone Dip 1 applic TOPICAL BID 02/11/17 02/11/17 [Lotrisone Cream] Indomethacin [Indocin] 50 mg PO TID 02/11/17 02/11/17 methylPREDNISolone Dose Pack See Taper PO DAILY 02/11/17 02/11/17 [Medrol Dose Pack] Previous Rx's Medication Instructions Recorded Omeprazole [PriLOSEC] 40 mg PO AC-[id number] #14 capsule. 01/27/17 traMADol HCL [Ultram] 50 mg PO Q4HR PRN #30 tab 01/27/17 Allergies Allergy/AdvReac Type Severity Reaction Status Date / Time adhesive tape Allergy Rash/Hives Verified 02/11/17 18:31 Iodinated Contrast Media - Allergy Anaphylaxis Verified 02/11/17 18:31 Oral and [Iodinated Contrast Media - IV Dye] Penicillins Allergy Rash/Hives Verified 02/11/17 18:31 Review of Systems ROS Statement: Those systems with pertinent positive or pertinent negative responses have been documented in the HPI. ROS Other: All systems not noted in ROS Statement are negative. Past Medical History Past Medical History: Asthma, Coronary Artery Disease (CAD), Cancer, Eye Disorder, Hyperlipidemia, Hypertension, Osteoarthritis (OA), Pneumonia Additional Past Medical History / Comment(s): Morbid obesity, bronchial asthma, coronary artery disease, hypertension, hyperlipidemia, uterine cancer, osteoarthritis, cataracts, migraines, peripheral neuropathy, episodic urinary tract infections, gout, mentally challenged History of Any Multi-Drug Resistant Organisms: None Reported Past Surgical History: Heart Catheterization, Hysterectomy, Orthopedic Surgery Additional Past Surgical History / Comment(s): Right hand surgery, bilateral bunionectomy, cataract surgery, EGD, colonoscopy, surgery for ingrowing toenails , cardiac catheterization, partial hysterectomy, THORACENTESIS Past Anesthesia/Blood Transfusion Reactions: Motion Sickness Additional Past Anesthesia/Blood Transfusion Reaction / Comment(s): clausterphobia Past Psychological History: No Psychological Hx Reported Additional Psychological History / Comment(s): per pt's sister diallo,pt is menatally challenged, unable to read or write.lives with [id number] , independant no assistive devices when up Smoking Status: Former smoker Past Alcohol Use History: None Reported Additional Past Alcohol Use History / Comment(s): QUIT SMOKING " A LONG TIME AGO " Past Drug Use History: None Reported - Past Family History Mother Family Medical History: Unable to Obtain Additional Family Medical History / Comment(s): PARKINSONS Father Family Medical History: Unable to Obtain Additional Family Medical History / Comment(s): HEMOCHROMATOSIS General Exam - General Exam Comments Initial Comments: GENERAL: The patient is well nourished and well hydrated. VITAL SIGNS: Heart rate, blood pressure, respiratory rate reviewed as recorded in nurse's notes. EYES: Pupils are round and reactive. Extraocular movements are intact. No conjunctival / lid redness or swelling. ENT: No external evidence of injury, swelling, or ecchymosis. Airway is patent. Throat is clear. NECK: Nontender. No swelling or evidence of injury. No subcutaneous emphysema. Trachea is midline. No thyroid mass. HEART: Regular rate and rhythm. Good peripheral pulses. LUNGS/CHEST: Breath sounds clear and equal bilaterally. No rales, rhonchi, or wheezes. No ecchymosis, subcutaneous emphysema, or tenderness. ABDOMEN: Abdomen soft without tenderness. No palpable masses or organomegaly. No peritoneal signs. No abdominal wall swelling or ecchymosis. There is a Pleurx cath drainage system coming out of the left abdomen. EXTREMITIES: No extremity tenderness. Normal muscle tone and function. No thoracolumbar tenderness. NEUROLOGIC: Sensation is grossly intact. Cranial nerve exam reveals face is symmetrical, tongue is midline, speech is clear. SKIN: No abrasions or ecchymosis is noted. No induration or masses noted. PSYCHIATRIC: Alert and oriented. Appropriate behavior and judgment. Course Vital Signs 02/11/17 18:01 Temperature 97.7 F Pulse Rate 69 Respiratory 18 Rate Blood Pressure 130/93 O2 Sat by Pulse 99 Oximetry Medical Decision Making - Medical Decision Making The patient was seen and examined. Old records were reviewed. A chest x-ray was done which does show improvement as compared to previous x-ray. There is no meds though the mesothelioma like changes present to her left lung but this is improved and there is no significant fluid identified. The case is discussed with Dr. Hogan and he recommends discharge home at this time. There is nothing to further drain and she needs to follow up with oncology for possible chemotherapy. The patient is agreeable to this plan. Her pulse ox is stable. She leaves in no identifiable distress. Disposition Clinical Impression: Mesothelioma, Dyspnea Disposition: HOME SELF-CARE Condition: Fair Instructions: Dyspnea (ED) Referrals: Antolin Kaplan MD [Primary Care Provider] - 1-2 days Time of Disposition: 21:16
[2017-02-11 21:56] VITALS: BP 127/78; PULSE 70; RESP 16; TEMP 97.2
== END 2017-02-11 21:45 | disposition home or self-care (01) ==
LOC: EC 17:50
DX: C45.9 Mesothelioma, unspecified (principal); I10 Essential (primary) hypertension; I25.10 Atherosclerotic heart disease of native coronary artery without angina pectoris; E78.5 Hyperlipidemia, unspecified; M19.90 Unspecified osteoarthritis, unspecified site; M10.9 Gout, unspecified; E66.01 Morbid (severe) obesity due to excess calories; Z87.891 Personal history of nicotine dependence; Z79.52 Long term (current) use of systemic steroids; Z79.899 Other long term (current) drug therapy; Z88.0 Allergy status to penicillin; Z91.041 Radiographic dye allergy status; Z91.09 Other allergy status, other than to drugs and biological substances; Z85.42 Personal history of malignant neoplasm of other parts of uterus; Z90.710 Acquired absence of both cervix and uterus; Z98.890 Other specified postprocedural states; Z68.39 Body mass index [BMI] 39.0-39.9, adult
CPT/HCPCS: 71020; 99285

== ENCOUNTER → 2017-02-16 | Outpatient (CLI) | payer MEDICARE, OTHER ==
--- NOTE | 2017-02-18 14:53 | PE ---
"Nuclear medicine PET/CT HISTORY: Mesothelioma Patient received 14.4 mCi F-18 FDG intravenously. Delayed scanning performed from the skull base to t he mid thighs. Localization and attenuation correction CT scan was performed. Correlation to chest x- ray dated January, chest CT 16 January 2017 FINDINGS: Neck and chest: Abnormal increased attenuation present within the left hemithorax is noted there is a central mass present which is not well-defined, SUV is 7 8. Peripherally at the left lower lobe nabor tional soft tissue mass is present extending along the posterior costophrenic sulcus and left hemidia phragm, SUV is 8-9. Bronchograms are present, there may be loculated effusion along the anterior aspect of the left hemit horax, small nodular focus of hypermetabolic uptake is present likely internal mammary adenopathy, POWERS V 5. Left-sided pleural drainage catheter is in place. Right middle lobe nodular density is stable. N o suspicious hypermetabolic uptake seen in the right lung. Pulmonary artery somewhat enlarged, correl ate for possible pulmonary artery hypertension, coronary artery calcifications. ABDOMEN and pelvis: No suspicious hypermetabolic uptake. Adrenal glands are normal. No retroperitonea l adenopathy. Subcapsular fluid collection present along the spleen is noted, there may be some minim al extravasation, there is mass effect on the spleen. Right-sided renal cysts show some wall calcific ation and measures 8.7 cm. Osseous structures: Facet in the upper cervical spine on the left shows some hypermetabolic uptake POWERS V 3-4 at the C4-5 level. IMPRESSION: Findings compatible with patient's history of mesothelioma, difficult to exclude underlyi ng bronchogenic carcinoma. Subcapsular splenic hematoma is an interval finding and of indeterminate a ge. A Yellow message has been communicated to Brayan Lin MD via the [employer] | Critical Result syst em on 02/18/2017 2:49 PM, Message ID [id number]."
== END | disposition home or self-care (01) ==
LOC: RADPETMAIN 08:21
PROVIDERS: ATTEND Internal Medicine Hematology & Oncology
DX: C45.9 Mesothelioma, unspecified (principal); D73.5 Infarction of spleen
CPT/HCPCS: 78815; A9552

== ENCOUNTER 2017-02-18 17:17 | Emergency (ER) | payer MEDICARE, OTHER ==
[2017-02-18 18:08] VITALS: RESP 16; TEMP 97.2
[2017-02-18 19:38] LABS: Basophils % (A) 0 %; CH 28.6; CHCM 33.2; Eosinophils # (A) 0.1 k/uL (0-0.7); Eosinophils % (A) 1 %; HCT 37.4 % (34.0-46.0); HDW 2.95; HGB 12.3 gm/dL (11.4-16.0); Luc # (Auto) 0.11; Luc % (Auto) 1; Lymphocytes # (A) 1.3 k/uL (1.0-4.8); Lymphocytes % (A) 11 %; MCH 28.6 pg (25.0-35.0); MCV 86.5 fL (80.0-100.0); Mean Platelet Volume 8.3; Monocytes # (A) 0.4 k/uL (0-1.0); Monocytes % (A) 4 %; Neutrophils # (A) 9.4 k/uL (1.3-7.7); Neutrophils % (A) 84 %; RBC 4.32 m/uL (3.80-5.40); RDW 14.2 % (11.5-15.5); WBC 11.3 k/uL (3.8-10.6); WBC (Perox) 11.34
[2017-02-18 20:03] LABS: Anion Gap 13 mmol/L; Blood Urea Nitrogen 11 mg/dL (7-17); Calcium 9.1 mg/dL (8.4-10.2); Carbon Dioxide 24 mmol/L (22-30); Chloride 106 mmol/L (98-107); Glucose 124 mg/dL (74-99); Non-African American GFR(MDRD) >60 (>60 ml/min/1.73 sqM); Potassium 4.1 mmol/L (3.5-5.1); Sodium 143 mmol/L (137-145)
--- NOTE | 2017-02-18 20:21 | ED ---
General Adult HPI - General Chief complaint: Recheck/Abnormal Lab/Rx Stated complaint: sent by dr lin, bleed on spleen Time Seen by Provider: 02/18/17 19:15 Source: patient Mode of arrival: ambulatory Limitations: no limitations - History of Present Illness Initial comments: This 61-year-old white female presents after being called by her oncologist to come to the emergency department. She barely had a PET scan done 2 days ago. This was for evaluation of her mesothelioma. This apparently showed a mesothelioma and bronchogenic carcinoma. It also showed a super capsular hematoma on her spleen. The patient was unaware of any splenic pathology. She denies any abdominal pain. She denies any actual trauma. She has been under treatment for her mesothelioma and had a Pleurx cath placed into her left chest due to chronic pleural effusion somewhat recently. She may have had a VATS procedure as well. She states that she feels completely normal at this time. She was just seen by myself several days ago because her Pleurx cath stopped draining. She denies any other complaints or modifying factors. - Related Data Home Medications Medication Instructions Recorded Confirmed Atenolol [Tenormin] 25 mg PO DAILY 08/02/15 02/18/17 Atorvastatin [Lipitor] 40 mg PO HS 01/15/17 02/18/17 Clotrimazole/Betamethasone Dip 1 applic TOPICAL BID PRN 02/11/17 02/18/17 [Lotrisone Cream] Ascorbic Acid [Vitamin C] 500 mg PO DAILY 02/18/17 02/18/17 Aspirin 81 mg PO DAILY 02/18/17 02/18/17 Previous Rx's Medication Instructions Recorded Omeprazole [PriLOSEC] 40 mg PO AC-BRKFST #14 capsule. 01/27/17 traMADol HCL [Ultram] 50 mg PO Q4HR PRN #30 tab 01/27/17 Allergies Allergy/AdvReac Type Severity Reaction Status Date / Time adhesive tape Allergy Rash/Hives Verified 02/18/17 19:02 Iodinated Contrast Media - Allergy Anaphylaxis Verified 02/18/17 19:02 Oral and [Iodinated Contrast Media - IV Dye] Penicillins Allergy Rash/Hives Verified 02/18/17 19:02 Review of Systems ROS Statement: Those systems with pertinent positive or pertinent negative responses have been documented in the HPI. ROS Other: All systems not noted in ROS Statement are negative. Past Medical History Past Medical History: Asthma, Coronary Artery Disease (CAD), Cancer, Eye Disorder, Hyperlipidemia, Hypertension, Osteoarthritis (OA), Pneumonia Additional Past Medical History / Comment(s): Morbid obesity, bronchial asthma, coronary artery disease, hypertension, hyperlipidemia, uterine cancer, osteoarthritis, cataracts, migraines, peripheral neuropathy, episodic urinary tract infections, gout, mentally challenged History of Any Multi-Drug Resistant Organisms: None Reported Past Surgical History: Heart Catheterization, Hysterectomy, Orthopedic Surgery Additional Past Surgical History / Comment(s): Right hand surgery, bilateral bunionectomy, cataract surgery, EGD, colonoscopy, surgery for ingrowing toenails , cardiac catheterization, partial hysterectomy, THORACENTESIS Past Anesthesia/Blood Transfusion Reactions: Motion Sickness Additional Past Anesthesia/Blood Transfusion Reaction / Comment(s): clausterphobia Past Psychological History: No Psychological Hx Reported Additional Psychological History / Comment(s): per pt's sister diallo,pt is menatally challenged, unable to read or write.lives with [id number] , independant no assistive devices when up Smoking Status: Former smoker Past Alcohol Use History: None Reported Additional Past Alcohol Use History / Comment(s): QUIT SMOKING " A LONG TIME AGO " Past Drug Use History: None Reported - Past Family History Mother Family Medical History: Unable to Obtain Additional Family Medical History / Comment(s): PARKINSONS Father Family Medical History: Unable to Obtain Additional Family Medical History / Comment(s): HEMOCHROMATOSIS General Exam - General Exam Comments Initial Comments: GENERAL: The patient is well nourished and well hydrated. VITAL SIGNS: Heart rate, blood pressure, respiratory rate reviewed as recorded in nurse's notes. EYES: Pupils are round and reactive. Extraocular movements are intact. No conjunctival / lid redness or swelling. ENT: No external evidence of injury, swelling, or ecchymosis. Airway is patent. Throat is clear. NECK: Nontender. No swelling or evidence of injury. No subcutaneous emphysema. Trachea is midline. No thyroid mass. HEART: Regular rate and rhythm. Good peripheral pulses. LUNGS/CHEST: Breath sounds clear and equal bilaterally. No rales, rhonchi, or wheezes. No ecchymosis, subcutaneous emphysema, or tenderness. ABDOMEN: Abdomen soft without tenderness. No palpable masses or organomegaly. No peritoneal signs. No abdominal wall swelling or ecchymosis. There is a pleuritic cath tube coming from her left upper abdomen. EXTREMITIES: No extremity tenderness. Normal muscle tone and function. No thoracolumbar tenderness. NEUROLOGIC: Sensation is grossly intact. Cranial nerve exam reveals face is symmetrical, tongue is midline, speech is clear. SKIN: No abrasions or ecchymosis is noted. No induration or masses noted. PSYCHIATRIC: Alert and oriented. Appropriate behavior and judgment. Limitations: no limitations Course Vital Signs 02/18/17 18:04 Temperature 97.2 F L Pulse Rate 69 Respiratory 16 Rate Blood Pressure 121/62 O2 Sat by Pulse 97 Oximetry Medical Decision Making - Medical Decision Making The patient was seen and examined. Case was discussed with Dr. Lin prior to patient arrival. Old records were reviewed in detail. He was concerned regarding the splenic hematoma. He was not aware of this in the past. He is unsure of patient's symptomatology and if this is an acute significant finding if there is any anemia. The patient had laboratory drawn and her hemoglobin is quite stable. She is asymptomatic at this time. Is felt that she is stable for discharge. She was informed of the findings and may follow-up with her doctor on an outpatient basis. It is felt that this certainly may be subacute. It appears and capsulated and there is no anemia. She is quite stable from a clinical and vital standpoint. She understands and leaves in no distress. - Lab Data Result diagrams: 02/18/17 18:55 02/18/17 18:55 Lab Results 02/18/17 02/18/17 Range/Units 18:55 18:55 WBC 11.3 H (3.8-10.6) k/uL RBC 4.32 (3.80-5.40) m/uL Hgb 12.3 (11.4-16.0) gm/dL Hct 37.4 (34.0-46.0) % MCV 86.5 (80.0-100.0) fL MCH 28.6 (25.0-35.0) pg MCHC 33.0 (31.0-37.0) g/dL RDW 14.2 (11.5-15.5) % Plt Count 462 H (150-450) k/uL Neutrophils % 84 % Lymphocytes % 11 % Monocytes % 4 % Eosinophils % 1 % Basophils % 0 % Neutrophils # 9.4 H (1.3-7.7) k/uL Lymphocytes # 1.3 (1.0-4.8) k/uL Monocytes # 0.4 (0-1.0) k/uL Eosinophils # 0.1 (0-0.7) k/uL Basophils # 0.0 (0-0.2) k/uL Sodium 143 (137-145) mmol/L Potassium 4.1 (3.5-5.1) mmol/L Chloride 106 (98-107) mmol/L Carbon Dioxide 24 (22-30) mmol/L Anion Gap 13 mmol/L BUN 11 (7-17) mg/dL Creatinine 0.80 (0.52-1.04) mg/dL Est GFR (MDRD) Af Amer >60 (>60 ml/min/1.73 sqM) Est GFR (MDRD) Non-Af >60 (>60 ml/min/1.73 sqM) Glucose 124 H (74-99) mg/dL Calcium 9.1 (8.4-10.2) mg/dL Disposition Clinical Impression: Subcapsular hemorrhage of spleen, Mesothelioma Disposition: HOME SELF-CARE Condition: Good Instructions: Non-penetrating Injuries to the Liver or Spleen (ED) Referrals: Antolin Kaplan MD [Primary Care Provider] - 1-2 days Brayan Lin MD [STAFF PHYSICIAN] - 1-2 days Time of Disposition: 20:21
[2017-02-18 20:31] VITALS: BP 155/72; PULSE 65
== END 2017-02-18 20:30 | disposition home or self-care (01) ==
LOC: EC 17:17
DX: D73.5 Infarction of spleen (principal); C45.9 Mesothelioma, unspecified; I25.10 Atherosclerotic heart disease of native coronary artery without angina pectoris; I10 Essential (primary) hypertension; E78.5 Hyperlipidemia, unspecified; Z87.891 Personal history of nicotine dependence; Z79.82 Long term (current) use of aspirin; Z79.899 Other long term (current) drug therapy; Z88.0 Allergy status to penicillin; Z91.041 Radiographic dye allergy status; Z91.048 Other nonmedicinal substance allergy status
CPT/HCPCS: 36415; 80048; 85025; 99284

== ENCOUNTER → 2017-04-03 | Outpatient (CLI) | payer MEDICARE, OTHER ==
[2017-04-03 08:47] LABS: ALT 27 U/L (9-52); AST 24 U/L (14-36); Alkaline Phosphatase 78 U/L (38-126); Anion Gap 11 mmol/L; Blood Urea Nitrogen 15 mg/dL (7-17); Calcium 7.2 mg/dL (8.4-10.2); Carbon Dioxide 24 mmol/L (22-30); Chloride 108 mmol/L (98-107); Cholesterol 128 mg/dL (<200); Glucose 112 mg/dL (74-99); HDL Cholesterol 28 mg/dL (40-60); Non-African American GFR(MDRD) >60 (>60 ml/min/1.73 sqM); Potassium 3.4 mmol/L (3.5-5.1); Sodium 143 mmol/L (137-145); Total Bilirubin 0.5 mg/dL (0.2-1.3); Total Protein 6.6 g/dL (6.3-8.2); Triglycerides 161 mg/dL (<150)
== END | disposition home or self-care (01) ==
LOC: LABWHC1 07:44
PROVIDERS: ATTEND Internal Medicine Interventional Cardiology
DX: E78.2 Mixed hyperlipidemia (principal)
CPT/HCPCS: 36415; 80053; 80061

== ENCOUNTER 2017-04-05 11:40 | Emergency (ER) | payer MEDICARE, OTHER ==
--- NOTE | 2017-04-05 14:50 | CT ---
EXAMINATION TYPE: CT chest wo con DATE OF EXAM: 04/05/2017 2:37 PM COMPARISON: Previous study dated 01/16/2017 and a previous PET/CT dated 02/16/2017. HISTORY: Tube problem CT DLP: 420.60 mGycm Automated exposure control for dose reduction was used. FINDINGS There is a left pleural drain in place. There continues to be some loculated fluid at the le ft lung base but this has markedly improved. There is improved aeration of the left lung base as well . Some residual atelectasis persists. No definite parenchymal nodules are seen. There is no significant axillary, internal mammary, mediastinal or hilar adenopathy. The heart is enl arged. There is no pericardial fluid. There continues to be a subcapsular fluid collection involving the spleen. This remains stable in siz e. Visualized portions of the upper abdomen are otherwise unremarkable. There is hypertrophic spondylosis within the spine. No bony destructive lesion is seen. IMPRESSION: 1. DECREASE IN THE SIZE OF THE PATIENT'S LEFT PLEURAL EFFUSION AND IMPROVED AERATION AT THE LEFT LUNG BASE. 2. CARDIOMEGALY. 3. STABLE SUBCAPSULAR FLUID COLLECTION INVOLVING THE LATERAL ASPECT OF THE SPLEEN.
[2017-04-05 15:03] LABS: Anisocytosis Slight; Basophils % (A) 0 %; CH 28.2; CHCM 33.6; Eosinophils # (A) 0.1 k/uL (0-0.7); Eosinophils % (A) 2 %; HCT 34.3 % (34.0-46.0); HDW 2.63; HGB 11.5 gm/dL (11.4-16.0); Luc # (Auto) 0.14; Luc % (Auto) 3; Lymphocytes # (A) 1.6 k/uL (1.0-4.8); Lymphocytes % (A) 40 %; MCH 28.1 pg (25.0-35.0); MCHC 33.4 g/dL (31.0-37.0); MCV 84.1 fL (80.0-100.0); Mean Platelet Volume 8.3; Monocytes # (A) 0.3 k/uL (0-1.0); Monocytes % (A) 7 %; Neutrophils # (A) 1.9 k/uL (1.3-7.7); Neutrophils % (A) 47 %; RBC 4.08 m/uL (3.80-5.40); RDW 16.9 % (11.5-15.5); WBC (Perox) 3.82
[2017-04-05 15:11] LABS: Anion Gap 12 mmol/L; Blood Urea Nitrogen 12 mg/dL (7-17); Calcium 7.5 mg/dL (8.4-10.2); Carbon Dioxide 27 mmol/L (22-30); Chloride 103 mmol/L (98-107); Glucose 140 mg/dL (74-99); Non-African American GFR(MDRD) >60 (>60 ml/min/1.73 sqM); Sodium 142 mmol/L (137-145)
[2017-04-05 15:13] LABS: Potassium 2.9 mmol/L (3.5-5.1)
[2017-04-05] MEDS ORDERED: POTASSIUM CHLORIDE ER 20 MEQ TAB.ER PO STA (15:23)
[2017-04-05 15:30] VITALS: BP 110/75; PULSE 65; RESP 18; TEMP 97.9
--- NOTE | 2017-04-05 15:34 | ED ---
General Adult HPI - General Chief complaint: Recheck/Abnormal Lab/Rx Stated complaint: TUBE PROBLEM Time Seen by Provider: 04/05/17 13:21 Source: patient Mode of arrival: ambulatory Limitations: no limitations - History of Present Illness Initial comments: 61 yo female with pmh of mesothelioma and left chest Pleurix catheter presenting for evaluation of redness and pain around the entrance of the catheter. The patient is mentally handicapped and has her sister with her who helps with history. She states that the redness swelling and pain started 2 days ago and is progressively worsened. There is also some purulent drainage from around the catheter. During this time the patient has also been having a mild URI and cough but states that she hasn't been having any shortness of breath or chest pain. There was a mild fever just over 100F but she has had no other systemic manifestations of infection. Her sister states that she is still undergoing chemotherapy for the mesothelioma and that she has a follow-up PET scan on 04/20. Her Stud Beef Cattle Farmer is Dr. Hogan. - Related Data Home Medications Medication Instructions Recorded Confirmed Atenolol [Tenormin] 25 mg PO DAILY 08/02/15 04/05/17 Atorvastatin [Lipitor] 40 mg PO HS 01/15/17 04/05/17 Ascorbic Acid [Vitamin C] 500 mg PO DAILY 02/18/17 04/05/17 Aspirin 81 mg PO DAILY 02/18/17 04/05/17 Previous Rx's Medication Instructions Recorded traMADol HCL [Ultram] 50 mg PO Q4HR PRN #30 tab 01/27/17 Levofloxacin [Levaquin] 500 mg PO DAILY #10 tab 04/05/17 Allergies Allergy/AdvReac Type Severity Reaction Status Date / Time adhesive tape Allergy Rash/Hives Verified 04/05/17 14:34 Iodinated Contrast Media - Allergy Anaphylaxis Verified 04/05/17 14:34 Oral and [Iodinated Contrast Media - IV Dye] Penicillins Allergy Rash/Hives Verified 04/05/17 14:34 Review of Systems ROS Statement: Those systems with pertinent positive or pertinent negative responses have been documented in the HPI. ROS Other: All systems not noted in ROS Statement are negative. Constitutional: Reports: fever. Denies: chills, weakness, night sweats Eyes: Denies: eye pain, eye discharge, vision change ENT: Denies: ear pain, throat pain, dental pain Respiratory: Reports: cough. Denies: dyspnea, wheezes, hemoptysis, stridor Cardiovascular: Denies: chest pain, palpitations, dyspnea on exertion, orthopnea , edema, syncope, paroxysmal nocturnal dyspnea Endocrine: Denies: fatigue, polydipsia, polyuria Gastrointestinal: Denies: abdominal pain, nausea, vomiting, diarrhea, constipation Genitourinary: Denies: urgency, dysuria, frequency Musculoskeletal: Reports: other (chest wall pain at ). Denies: back pain, arthralgia, myalgia Skin: Reports: lesions, other (erythema around entrance site of pleurix catheter with purulent drainage). Denies: rash Neurological: Denies: headache, weakness Psychiatric: Denies: anxiety, depression Hematological/Lymphatic: Denies: easy bleeding, easy bruising Past Medical History Past Medical History: Asthma, Coronary Artery Disease (CAD), Cancer, Eye Disorder, Hyperlipidemia, Hypertension, Osteoarthritis (OA), Pneumonia Additional Past Medical History / Comment(s): Morbid obesity, bronchial asthma, coronary artery disease, hypertension, hyperlipidemia, uterine cancer, osteoarthritis, cataracts, migraines, peripheral neuropathy, episodic urinary tract infections, gout, mentally challenged History of Any Multi-Drug Resistant Organisms: None Reported Past Surgical History: Heart Catheterization, Hysterectomy, Orthopedic Surgery Additional Past Surgical History / Comment(s): Right hand surgery, bilateral bunionectomy, cataract surgery, EGD, colonoscopy, surgery for ingrowing toenails , cardiac catheterization, partial hysterectomy, THORACENTESIS Past Anesthesia/Blood Transfusion Reactions: Motion Sickness Additional Past Anesthesia/Blood Transfusion Reaction / Comment(s): clausterphobia Past Psychological History: No Psychological Hx Reported Additional Psychological History / Comment(s): per pt's sister diallo,pt is menatally challenged, unable to read or write.lives with [id number] , independant no assistive devices when up Smoking Status: Former smoker Past Alcohol Use History: None Reported Additional Past Alcohol Use History / Comment(s): QUIT SMOKING " A LONG TIME AGO " Past Drug Use History: None Reported - Past Family History Mother Family Medical History: Unable to Obtain Additional Family Medical History / Comment(s): PARKINSONS Father Family Medical History: Unable to Obtain Additional Family Medical History / Comment(s): HEMOCHROMATOSIS General Exam Limitations: no limitations General appearance: alert, in no apparent distress Head exam: Present: atraumatic, normocephalic, normal inspection Eye exam: Present: normal appearance, PERRL, EOMI. Absent: scleral icterus, conjunctival injection, periorbital swelling ENT exam: Present: normal exam, mucous membranes moist Neck exam: Present: normal inspection. Absent: tenderness, meningismus, lymphadenopathy Respiratory exam: Present: decreased breath sounds (over the LLL). Absent: respiratory distress, wheezes, rales, rhonchi, stridor, chest wall tenderness, accessory muscle use, prolonged expiratory Cardiovascular Exam: Present: regular rate, normal rhythm, normal heart sounds. Absent: systolic murmur, diastolic murmur, rubs, gallop, clicks GI/Abdominal exam: Present: soft, normal bowel sounds. Absent: distended, tenderness, guarding, rebound, rigid Rectal exam: Present: deferred Extremities exam: Present: normal inspection, full ROM, normal capillary refill. Absent: tenderness, pedal edema, joint swelling, calf tenderness Back exam: Present: normal inspection Neurological exam: Present: alert, oriented X3, CN II-XII intact Psychiatric exam: Present: normal affect, normal mood Skin exam: Present: warm, dry, intact, normal color, other (erythema with induration around pleurex entrance. No purulence noted around catheter entrance but there is pus on the dressing.). Absent: rash Course Vital Signs 04/05/17 04/05/17 12:29 15:29 Temperature 99.1 F 97.9 F Pulse Rate 63 65 Respiratory 16 18 Rate Blood Pressure 133/62 110/75 O2 Sat by Pulse 99 99 Oximetry Medical Decision Making - Medical Decision Making 61-year-old mentally handicapped female presented for evaluation of erythema and induration around the entrance site of her Pleurx catheter. The patient had a catheter placed after diagnosis of mesothelioma with a left-sided pleural effusion. On physical examination the patient is in no apparent distress and lungs are clear to auscultation bilaterally although decreased on the left lower side. Vitals are within normal limits and patient is afebrile. Plan of care was discussed with her pulmonologists office and the net web application developer Dr. Shepherd who recommended she be started on antibiotics and outpatient follow up if her exam was negative. CT chest revealed stable changes from previous and labs revealed no significant abnormalities. The patient and her sister were informed of these results and through shared decision making it was determined that he would be discharged with a prescription for levofloxacin and instructions to follow-up with her primary care physician and report analyst this week. Choice of antibiotic was discussed with pharmacy and found to be the best coverage given the presence of the Pleurx and appropriate coverage for both MRSA and gram negatives. They're further advised to return to this facility over the weekend if her symptoms should worsen or persist. They acknowledged an understanding of this information and agreed with this plan of care. - Lab Data Result diagrams: 04/05/17 14:45 04/05/17 14:45 Lab Results 04/05/17 04/05/17 04/05/17 Range/Units 14:45 14:45 14:45 WBC 4.0 (3.8-10.6) k/uL RBC 4.08 (3.80-5.40) m/uL Hgb 11.5 (11.4-16.0) gm/dL Hct 34.3 (34.0-46.0) % MCV 84.1 (80.0-100.0) fL MCH 28.1 (25.0-35.0) pg MCHC 33.4 (31.0-37.0) g/dL RDW 16.9 H (11.5-15.5) % Plt Count 217 (150-450) k/uL Neutrophils % 47 % Lymphocytes % 40 % Monocytes % 7 % Eosinophils % 2 % Basophils % 0 % Neutrophils # 1.9 (1.3-7.7) k/uL Lymphocytes # 1.6 (1.0-4.8) k/uL Monocytes # 0.3 (0-1.0) k/uL Eosinophils # 0.1 (0-0.7) k/uL Basophils # 0.0 (0-0.2) k/uL Anisocytosis Slight Sodium 142 (137-145) mmol/L Potassium 2.9 L* (3.5-5.1) mmol/L Chloride 103 (98-107) mmol/L Carbon Dioxide 27 (22-30) mmol/L Anion Gap 12 mmol/L BUN 12 (7-17) mg/dL Creatinine 0.90 (0.52-1.04) mg/dL Est GFR (MDRD) Af Amer >60 (>60 ml/min/1.73 sqM) Est GFR (MDRD) Non-Af >60 (>60 ml/min/1.73 sqM) Glucose 140 H (74-99) mg/dL Plasma Lactic Acid Fuentes 2.0 (0.7-2.0) mmol/L Calcium 7.5 L (8.4-10.2) mg/dL Disposition Clinical Impression: Cellulitis, Hypokalemia Disposition: HOME SELF-CARE Condition: Stable Instructions: Cellulitis (ED), Hypokalemia (ED) Additional Instructions: Please use medication as discussed. Please follow up with family doctor if symptoms have not improved over the next two days. Please return to the emergency room if your symptoms increase or worsen or for any other concerns. Prescriptions: Levofloxacin [Levaquin] 500 mg PO DAILY #10 tab Referrals: Antolin Kaplan MD [Primary Care Provider] - 1-2 days Time of Disposition: 15:34
== END 2017-04-05 15:42 | disposition home or self-care (01) ==
LOC: EC 11:40
DX: T81.4XXA Infection following a procedure, initial encounter (principal); E87.6 Hypokalemia; I25.10 Atherosclerotic heart disease of native coronary artery without angina pectoris; I10 Essential (primary) hypertension; E78.5 Hyperlipidemia, unspecified; M10.9 Gout, unspecified; E66.01 Morbid (severe) obesity due to excess calories; Z68.38 Body mass index [BMI] 38.0-38.9, adult; M19.90 Unspecified osteoarthritis, unspecified site; Z87.891 Personal history of nicotine dependence; Z79.82 Long term (current) use of aspirin; Z79.899 Other long term (current) drug therapy; Z91.041 Radiographic dye allergy status; Z91.048 Other nonmedicinal substance allergy status; Z88.0 Allergy status to penicillin; Z85.42 Personal history of malignant neoplasm of other parts of uterus; Y83.8 Other surgical procedures as the cause of abnormal reaction of the patient, or of later complication, without mention of misadventure at the time of the procedure
CPT/HCPCS: 36415; 71250; 80048; 83605; 85025; 99284

== ENCOUNTER 2017-04-16 12:50 | Inpatient (IN) | payer MEDICARE, OTHER ==
[2017-04-16] MEDS ORDERED: SODIUM CHLORIDE 0.9% 1,000 ML IV STA (12:56)
[2017-04-16] MEDS ORDERED: SODIUM CHLORIDE 0.9% 500 ML IV STA (13:03)
--- NOTE | 2017-04-16 13:03 | ED ---
Weakness HPI - General Stated complaint: WEakness Time Seen by Provider: 04/16/17 12:50 Source: patient, EMS, RN notes reviewed, old records reviewed Mode of arrival: EMS - History of Present Illness Initial comments: This is a 61-year-old female with a history of mesothelioma uterine cancer hypothyroidism who is brought in from her oncologist office which she was found to be clammy weak pale. She also found to be in A. fib with RVR. She is on her third round of chemotherapy she was in for a checkup today. She is a relatively poor historian she denies any fevers chills sweats or cough she does have a history of a malignant pleural effusion. She has had a drainage catheter in the left chest wall. There is some reported erythema about the area also another wound posterior to this. MD Complaint: generalized weakness - Related Data Home Medications Medication Instructions Recorded Confirmed RX: Atenolol [Tenormin] 25 mg PO DAILY 08/02/15 04/16/17 RX: Atorvastatin [Lipitor] 40 mg PO HS 01/15/17 04/16/17 Ascorbic Acid [Vitamin C] 500 mg PO DAILY 02/18/17 04/16/17 RX: Aspirin 81 mg PO DAILY 02/18/17 04/16/17 Previous Rx's Medication Instructions Recorded RX: traMADol HCL [Ultram] 50 mg PO Q4HR PRN #30 tab 01/27/17 Allergies Allergy/AdvReac Type Severity Reaction Status Date / Time adhesive tape Allergy Rash/Hives Verified 04/16/17 13:05 Iodinated Contrast Media - Allergy Anaphylaxis Verified 04/16/17 13:05 Oral and [Iodinated Contrast Media - IV Dye] Penicillins Allergy Rash/Hives Verified 04/16/17 13:05 Review of Systems ROS Statement: Those systems with pertinent positive or pertinent negative responses have been documented in the HPI. ROS Other: All systems not noted in ROS Statement are negative. Past Medical History Past Medical History: Asthma, Coronary Artery Disease (CAD), Cancer, Eye Disorder, Hyperlipidemia, Hypertension, Osteoarthritis (OA), Pneumonia Additional Past Medical History / Comment(s): Morbid obesity, bronchial asthma, coronary artery disease, hypertension, hyperlipidemia, uterine cancer, osteoarthritis, cataracts, migraines, peripheral neuropathy, episodic urinary tract infections, gout, mentally challenged History of Any Multi-Drug Resistant Organisms: None Reported Past Surgical History: Heart Catheterization, Hysterectomy, Orthopedic Surgery Additional Past Surgical History / Comment(s): Right hand surgery, bilateral bunionectomy, cataract surgery, EGD, colonoscopy, surgery for ingrowing toenails , cardiac catheterization, partial hysterectomy, THORACENTESIS Past Anesthesia/Blood Transfusion Reactions: Motion Sickness Additional Past Anesthesia/Blood Transfusion Reaction / Comment(s): clausterphobia Past Psychological History: No Psychological Hx Reported Additional Psychological History / Comment(s): per pt's sister diallo,pt is menatally challenged, unable to read or write.lives with [id number] , independant no assistive devices when up Smoking Status: Former smoker Past Alcohol Use History: None Reported Additional Past Alcohol Use History / Comment(s): QUIT SMOKING " A LONG TIME AGO " Past Drug Use History: None Reported - Past Family History Mother Family Medical History: Unable to Obtain Additional Family Medical History / Comment(s): PARKINSONS Father Family Medical History: Unable to Obtain Additional Family Medical History / Comment(s): HEMOCHROMATOSIS General Exam - General Exam Comments Initial Comments: This is a well-developed appearing female General appearance: alert, anxious Head exam: Present: atraumatic, normocephalic, normal inspection Eye exam: Present: normal appearance, PERRL, EOMI. Absent: scleral icterus, conjunctival injection, periorbital swelling ENT exam: Present: mucous membranes dry Neck exam: Present: normal inspection. Absent: tenderness, meningismus, lymphadenopathy Respiratory exam: Present: normal lung sounds bilaterally, other. Absent: respiratory distress, wheezes, rales, rhonchi, stridor Cardiovascular Exam: Present: tachycardia, irregular rhythm. Absent: systolic murmur, diastolic murmur, rubs, gallop, clicks GI/Abdominal exam: Present: soft, normal bowel sounds. Absent: distended, tenderness, guarding, rebound, rigid Extremities exam: Present: normal inspection, full ROM, normal capillary refill. Absent: tenderness, pedal edema, joint swelling, calf tenderness Back exam: Present: normal inspection Neurological exam: Present: alert, oriented X3, CN II-XII intact Psychiatric exam: Present: normal affect, normal mood Skin exam: Present: warm, dry, intact, pallor. Absent: rash Course Vital Signs 04/16/17 04/16/17 04/16/17 13:00 13:46 13:53 Temperature 98.8 F 97.8 F Pulse Rate 165 H 164 H 132 H Pulse Rate [ 164 H Leaf Tinner ] Respiratory 18 18 18 Rate Blood Pressure 121/90 107/60 80/41 O2 Sat by Pulse 95 98 99 Oximetry 04/16/17 04/16/17 04/16/17 14:05 14:32 15:01 Temperature 97.8 F Pulse Rate 152 H 153 H 147 H Pulse Rate [ Leaf Tinner ] Respiratory 18 18 18 Rate Blood Pressure 83/48 100/42 89/52 O2 Sat by Pulse 99 99 98 Oximetry 04/16/17 04/16/17 15:38 16:09 Temperature 97.9 F Pulse Rate 126 H 145 H Pulse Rate [ Leaf Tinner ] Respiratory 18 20 Rate Blood Pressure 101/44 88/54 O2 Sat by Pulse 98 96 Oximetry - Reevaluation(s) Reevaluation #1: 04/16/17 16:33 I did reevaluate the patient several occasions she states she's feeling improved her heart rate has trended downward is still tachycardic. Blood pressure has been somewhat labile. EKG Findings - EKG Results: EKG: interpreted by ERMD EKG shows: tachycardia, atrial fibrillation (Atrial fibrillation rate of 150 QRS of 94 daily since QTC of 308/486 minimal voltage criteria for LVH nonspecific ST-T wave configuration.) Medical Decision Making - Medical Decision Making I did discuss findings with the patient family and with Dr. Ramirez. Patient will be admitted consultation by Dr. Hogan and Dr. Lin. Additionally consultation cardiology - Lab Data Result diagrams: 04/16/17 13:18 04/16/17 13:18 Lab Results 04/16/17 04/16/17 04/16/17 Range/Units 13:18 13:18 13:18 WBC 1.2 L* (3.8-10.6) k/uL RBC 3.61 L (3.80-5.40) m/uL Hgb 10.2 L (11.4-16.0) gm/dL Hct 30.4 L (34.0-46.0) % MCV 84.3 (80.0-100.0) fL MCH 28.1 (25.0-35.0) pg MCHC 33.3 (31.0-37.0) g/dL RDW 19.1 H (11.5-15.5) % Plt Count 176 (150-450) k/uL Neutrophils % (Manual) 46.0 % Lymphocytes % (Manual) 48.0 % Monocytes % (Manual) 3.0 % Eosinophils % (Manual) 3.0 % Neutrophils # (Manual) 0.6 L (1.3-7.7) k/uL Lymphocytes # (Manual) 0.6 L (1.0-4.8) k/uL Monocytes # (Manual) 0.0 (0-1.0) k/uL Eosinophils # (Manual) 0.0 (0-0.7) k/uL Nucleated RBCs 0 (0-0) /100 WBC Polychromasia Present Anisocytosis Slight PT (9.0-12.0) sec INR (<1.1) APTT (22.0-30.0) sec Sodium (137-145) mmol/L Potassium (3.5-5.1) mmol/L Chloride (98-107) mmol/L Carbon Dioxide (22-30) mmol/L Anion Gap mmol/L BUN (7-17) mg/dL Creatinine (0.52-1.04) mg/dL Est GFR (MDRD) Af Amer (>60 ml/min/1.73 sqM) Est GFR (MDRD) Non-Af (>60 ml/min/1.73 sqM) Glucose (74-99) mg/dL Plasma Lactic Acid Fuentes (0.7-2.0) mmol/L Calcium (8.4-10.2) mg/dL Magnesium (1.6-2.3) mg/dL Total Bilirubin (0.2-1.3) mg/dL AST (14-36) U/L ALT (9-52) U/L Alkaline Phosphatase (38-126) U/L Total Creatine Kinase 99 (30-135) U/L CK-MB (CK-2) 1.1 (0.0-2.4) ng/mL CK-MB (CK-2) Rel Index 1.1 Troponin I 0.320 H* (0.000-0.034) ng/mL Total Protein (6.3-8.2) g/dL Albumin (3.5-5.0) g/dL TSH (0.465-4.680) mIU/L Blood Type A Positive Blood Type Recheck No Antibody Screen NEGATIVE Spec Expiration Date 04/19/2017 - 231704/16/17 04/16/17 04/16/17 Range/Units 13:18 13:18 13:18 WBC (3.8-10.6) k/uL RBC (3.80-5.40) m/uL Hgb (11.4-16.0) gm/dL Hct (34.0-46.0) % MCV (80.0-100.0) fL MCH (25.0-35.0) pg MCHC (31.0-37.0) g/dL RDW (11.5-15.5) % Plt Count (150-450) k/uL Neutrophils % (Manual) % Lymphocytes % (Manual) % Monocytes % (Manual) % Eosinophils % (Manual) % Neutrophils # (Manual) (1.3-7.7) k/uL Lymphocytes # (Manual) (1.0-4.8) k/uL Monocytes # (Manual) (0-1.0) k/uL Eosinophils # (Manual) (0-0.7) k/uL Nucleated RBCs (0-0) /100 WBC Polychromasia Anisocytosis PT 16.5 H (9.0-12.0) sec INR 1.7 (<1.1) APTT 23.7 (22.0-30.0) sec Sodium 139 (137-145) mmol/L Potassium 3.5 (3.5-5.1) mmol/L Chloride 104 (98-107) mmol/L Carbon Dioxide 17 L (22-30) mmol/L Anion Gap 18 mmol/L BUN 56 H (7-17) mg/dL Creatinine 1.84 H (0.52-1.04) mg/dL Est GFR (MDRD) Af Amer 34 (>60 ml/min/1.73 sqM) Est GFR (MDRD) Non-Af 28 (>60 ml/min/1.73 sqM) Glucose 107 H (74-99) mg/dL Plasma Lactic Acid Fuentes 1.6 (0.7-2.0) mmol/L Calcium 6.3 L* (8.4-10.2) mg/dL Magnesium 1.3 L (1.6-2.3) mg/dL Total Bilirubin 1.5 H (0.2-1.3) mg/dL AST 23 (14-36) U/L ALT 20 (9-52) U/L Alkaline Phosphatase 83 (38-126) U/L Total Creatine Kinase (30-135) U/L CK-MB (CK-2) (0.0-2.4) ng/mL CK-MB (CK-2) Rel Index Troponin I (0.000-0.034) ng/mL Total Protein 5.8 L (6.3-8.2) g/dL Albumin 2.9 L (3.5-5.0) g/dL TSH 2.920 (0.465-4.680) mIU/L Blood Type Blood Type Recheck Antibody Screen Spec Expiration Date - Radiology Data Radiology results: report reviewed (I did review the imaging and report evidence of mild CHF some left pleural effusion on the left.), image reviewed Critical Care Time Critical Care Time: Yes Critical Care Time: 42 minutes of critical care time which includes initial presentation with monitoring the EMS call discussion with paramedics. History physical lab and x- rays. Reevaluation patient several occasions. Discussion with the patient family discussion with the admitting physician and admission orders and documentation of the above. Disposition Clinical Impression: Rapid atrial fibrillation, CHF (congestive heart failure), Mesothelioma, Renal insufficiency, Non-ST elevation myocardial infarction (NSTEMI) Disposition: ADMITTED IP TO THIS [facility] Condition: Serious Referrals: Aditi Fuentes MD [Primary Care Provider] - 1-2 days
[2017-04-16] MEDS ORDERED: DILTIAZEM 125 MG in SODIUM CHLORIDE 0.9% 100 ML IV ONE (13:04)
[2017-04-16 13:41] LABS: Magnesium 1.3 mg/dL (1.6-2.3); Potassium 3.5 mmol/L (3.5-5.1); Total Bilirubin 1.5 mg/dL (0.2-1.3); Total Protein 5.8 g/dL (6.3-8.2)
[2017-04-16 13:46] LABS: INR 1.7 (<1.1); Partial Thromboplastin Time 23.7 sec (22.0-30.0); Prothrombin Time 16.5 sec (9.0-12.0)
--- NOTE | 2017-04-16 13:47 | XR ---
EXAMINATION TYPE: XR chest 2V DATE OF EXAM: 04/16/2017 1:42 PM COMPARISON: 04/09/2017 HISTORY: 61-year-old female dysrhythmia TECHNIQUE: AP and lateral views FINDINGS: The heart is mildly enlarged. Increasing, now moderate-sized left pleural effusion with underlying op acity. The interstitium appears slightly more situated as compared to prior. IMPRESSION: 1. Correlate for mild CHF. 2. Increasing, now moderate-sized left pleural effusion with adjacent atelectasis and/or consolidatio n.
[2017-04-16] MEDS ORDERED: ONDANSETRON 4 MG/2 ML VIAL IVP STA (13:59)
[2017-04-16 14:01] LABS: Calcium 6.3 mg/dL (8.4-10.2)
[2017-04-16 14:04] LABS: Creatine Kinase MB 1.1 ng/mL (0.0-2.4)
[2017-04-16 14:09] LABS: Troponin I 0.32 ng/mL (0.000-0.034)
[2017-04-16 14:11] LABS: Anisocytosis Slight; Aty Lym Flag Slight; CH 28.2; CHCM 33.7; HCT 30.4 % (34.0-46.0); HDW 2.43; HGB 10.2 gm/dL (11.4-16.0); Immature Gran Flag Marked; MCH 28.1 pg (25.0-35.0); MCHC 33.3 g/dL (31.0-37.0); MCV 84.3 fL (80.0-100.0); Mean Platelet Volume 8.4; RBC 3.61 m/uL (3.80-5.40); RDW 19.1 % (11.5-15.5); WBC (Perox) 1.18
[2017-04-16] MEDS ORDERED: SODIUM CHLORIDE 0.9% 1,000 ML IV ONE (14:11)
[2017-04-16 14:17] LABS: WBC 1.2 k/uL (3.8-10.6)
[2017-04-16 14:34] LABS: Add Differential Manual Differential
[2017-04-16 14:37] LABS: Nucleated Red Blood Cells 0 /100 WBC (0-0); Polychromasia Present; Total Cells Counted 100
[2017-04-16] MEDS ORDERED: MAGNESIUM SULFATE-D5W PMX 1 GM in DEXTROSE/WATER 1 100ML.BAG IVPB ONE ×2 (14:40→16:47)
[2017-04-16] MEDS ORDERED: HEPARIN SODIUM,PORCINE 5,000 UNIT/ML 1 ML VIAL IV ONE (16:35)
[2017-04-16] MEDS ORDERED: NITROGLYCERIN SL TABS 0.4 MG TAB SUBLINGUAL PRN (16:35)
[2017-04-16] MEDS ORDERED: traMADol 50 MG TAB PO PRN (16:40)
[2017-04-16] MEDS ORDERED: SODIUM CHLORIDE 0.9% 500 ML IV ONE (16:47)
[2017-04-16] MEDS ORDERED: DILTIAZEM 5 MG/ML 5 ML VIAL IVP STA (16:48)
[2017-04-16] MEDS: SODIUM CHLORIDE 0.9% 1,000 ML IV SCH (17:02)
[2017-04-16] MEDS: HEPARIN SODIUM,PORCINE/D5W PMX 25,000 UNIT in DEXTROSE/WATER 1 500ML.BAG IV SCH (17:02)
[2017-04-16] MEDS ORDERED: NOREPINEPHRIN 4 MG-0.9% NS PMX 4 MG/250 ML ML IV ONE (17:13)
[2017-04-16] MEDS ORDERED: ALPRAZolam 0.25 MG TAB PO PRN (20:57)
[2017-04-16] MEDS ORDERED: TEMAZEPAM 15 MG CAP PO PRN (20:58)
[2017-04-16] MEDS ORDERED: HYDROmorphone 1 MG/ML 1 ML SYRINGE IVP PRN (20:58)
[2017-04-16 21:05] LABS: Troponin I 0.227 ng/mL (0.000-0.034)
[2017-04-16] MEDS: CALCIUM GLUCONATE 1,000 MG in SODIUM CHLORIDE 0.9% 100 ML IVPB SCH (22:43)
[2017-04-16] MEDS: HYDROcodone/APAP 5-325MG 1 EACH TAB PO PRN (22:46)
[2017-04-16] MEDS: ATORVASTATIN 40 MG TAB PO SCH (22:46)
[2017-04-16 23:13] LABS: Appearance,Urine Cloudy (Clear); Bacteria,Urine Occasional /hpf; Bilirubin,Urine Negative (Negative); Glucose,Urine (UA) Negative (Negative); Ketones,Urine 1+ (Negative); Leukocyte Esterase,Urine Trace (Negative); Mucus,Urine Rare /hpf; Nitrite,Urine Negative (Negative); PH, Urine 5.5 (5.0-8.0); Particle Count 11091; Protein,Urine 1+ (Negative); RBC,Urine 2 /hpf (0-5); Specific Gravity,Urine 1.015 (1.001-1.035); Squamous Epithelial Cell,Urine 2 /hpf (0-4); UA Billing (MACRO vs. MICRO) MICRO; Urobilinogen,Urine <2.0 mg/dL (<2.0); WBC,Urine 19 /hpf (0-5)
--- NOTE | 2017-04-16 23:15 | HP ---
DATE OF ADMISSION: 04/16/2017 CHIEF COMPLAINT: Weakness and atrial fibrillation with rapid ventricular rate. HISTORY OF PRESENT ILLNESS: This 61-year-old woman with a past medical history of multiple medical problems, including asthma, CAD, history of hypertension, hyperlipidemia, history of pneumonia, history of morbid obesity, bronchial asthma, history of uterine cancer, history of cardiac catheterization, also had pleural effusion on the left side recently. The patient had thoracocentesis and subsequently patient had a pleural biopsy which confirmed mesothelioma. The patient had a chest tube drain placed recently. The patient has gone to her oncologist. A PET scan was done recently which showed possible mesothelioma as well as subcapsular splenic hematoma; difficult to exclude underlying bronchogenic carcinoma. The patient is currently complaining of tiredness and weakness. The patient is mildly short of breath. Patient was noted to have atrial fibrillation, and from the oncologist's office the patient was directed to [facility] Room. For the atrial fibrillation, Cardizem drip was initiated. Patient also was found to have hypotension. Levophed dose was given. Patient also was found to have WBC 1.2 and hemoglobin 10.2, bicytopenia; creatinine 1.84, indicating some acute renal failure, possibly prerenal. Baseline creatinine was normal. The patient also had hypomagnesemia and troponins were elevated to 0.320. Patient was admitted for further evaluation and treatment. The patient also reports some bloody drainage from the chest tube on the left side. Heparin is on hold. There is no history of any fever, rigor or chills. PAST MEDICAL HISTORY: 1. Recent mesothelioma. 2. History of asthma. 3. History of hypertension. 4. Hyperlipidemia. 5. History for DJD. 6. History of pneumonia. 7. Morbid obesity. 8. History of cardiac catheterization. HOME MEDICATIONS: 1. Ultram 50 mg q.4 p.r.n. 2. Lipitor 40 mg at bedtime. 3. Tenormin 25 mg p.o. daily. 4. Aspirin 81 mg. 5. Vitamin C 500 mg daily. ALLERGIES: 1. ADHESIVE TAPE. 2. IODINATED CONTRAST. 3. PENICILLIN. FAMILY HISTORY: History of Parkinson's in the family. SOCIAL HISTORY: Patient was a smoker. No currently smoking or alcohol intake. REVIEW OF SYSTEMS: ENT: Diminishing hearing. Diminished vision. CARDIOVASCULAR: As mentioned earlier. RESPIRATORY: As mentioned earlier. GI: No nausea, vomiting. : No dysuria, retention. NERVOUS SYSTEM: No numbness, weakness. ALLERGY/IMMUNOLOGY: No asthma, hayfever. MUSCULOSKELETAL: As mentioned earlier. HEMATOLOGY/ONCOLOGY: As mentioned earlier. ENDOCRINE: As mentioned earlier. CONSTITUTIONAL: As mentioned earlier. DERMATOLOGY: Negative. RHEUMATOLOGY: Negative. PSYCHIATRY: As mentioned earlier. PHYSICAL EXAMINATION: Patient is alert and oriented x3. Pulse is 119, irregularly irregular, blood pressure is 103/58, respiration 18, temperature 98 degrees, pulse ox 99% on 2 L. HEENT: Conjunctivae normal. Oral mucosa moist. NECK: No jugular venous distention. No carotid bruit. No lymph node enlargement. CARDIOVASCULAR SYSTEM: S1, S2 irregularly irregular. Ejection systolic murmur present. No S3. No S4. RESPIRATORY: Breath sounds diminished at the bases, especially on the left side. Left-sided chest tube present. Also an ecchymotic area around the chest wall. Minimal tenderness present. Otherwise, no bronchial breath sounds. ABDOMEN: Soft, obese. Mild diffuse discomfort on palpation, especially on the left side. No hepatosplenomegaly. No ascites. LEGS: No edema. No swelling. NERVOUS SYSTEM: Higher functions as mentioned earlier. Cranial nerves 2 through 12 grossly intact. Moves all 4 limbs. Mild diffuse weakness. LYMPHATICS: No lymph node palpable in neck, axillae or groin. SKIN: No ulcer, rash, bleeding. LABS: WBC 1.2, hemoglobin 10.2. INR 1.7. Creatinine 1.84. Total bilirubin is 1.5. Calcium 6.3. Troponin 0.320. ASSESSMENT: 1. Atrial fibrillation with fast ventricular rate. 2. Hypotension, possibly cardiogenic shock. 3. Left-sided mesothelioma with pleural effusion, status post chest tube drainage and thoracocentesis. 4. Troponin 0.320, indicating acute [id number]-elevation myocardial infarction. 5. Leukopenia and anemia, bicytopenia, possibly secondary to malignancy. 6. Increased creatinine with acute renal failure, possible prerenal factors, acute tubular necrosis. 7. Hypomagnesemia. 8. Hypocalcemia. 9. Hypoalbuminemia with mild to moderate protein-calorie malnutrition. 10. Obesity, body mass index of 39. 11. History of asthma. 12. History of coronary artery disease. 13. History of hypertension, essential. 14. Hyperlipidemia. 15. History of degenerative joint disease. 16. Pneumonia. 17. Morbid obesity. 18. History of bronchial asthma. 19. History of uterine cancer. 20. History of cataracts. 21. History of peripheral neuropathy. 22. History of migraines. 23. History of recurrent urinary tract infections. 24. History of gout. 25. History of mentally challenged. 26. History of hysterectomy. 27. History of claustrophobia. 28. Remote history of nicotine dependence. 29. FULL CODE. RECOMMENDATIONS AND DISCUSSION: In this 61-year-old woman who presented with multiple complex medical issues, we will monitor the patient closely, continue the current medications, continue symptomatic treatment. I recommend continuing the Cardizem. Cardiology consultation. Symptomatic treatment. I also recommend consulting Hematology/Oncology and Pulmonary as well. Chest x-ray reviewed. Overall prognosis is extremely guarded because of multiple complex medical issues. Patient is short of breath at this time. We will continue to monitor. A two-D echo has not been done recently. I would recommend a two-D echo with Doppler. TSH was normal. I also recommend a BMP. Basic labs will be ordered. Prognosis guarded because of multiple complex medical issues. Further recommendations to follow.
[2017-04-17 01:47] LABS: Creatine Kinase MB 10.8 ng/mL (0.0-2.4); Troponin I 0.191 ng/mL (0.000-0.034)
[2017-04-17 06:13] LABS: Anisocytosis Slight; Aty Lym Flag Moderate; CHCM 32.5; HCT 27.3 % (34.0-46.0); HDW 2.42; HGB 8.8 gm/dL (11.4-16.0); Immature Gran Flag Slight; MCH 27.9 pg (25.0-35.0); MCHC 32.2 g/dL (31.0-37.0); MCV 86.7 fL (80.0-100.0); RBC 3.15 m/uL (3.80-5.40); RDW 18.9 % (11.5-15.5); WBC (Perox) 0.85
[2017-04-17 06:18] LABS: Potassium 3.2 mmol/L (3.5-5.1)
[2017-04-17 06:39] LABS: WBC 0.7 k/uL (3.8-10.6)
[2017-04-17 06:47] LABS: Calcium 6.2 mg/dL (8.4-10.2)
[2017-04-17] MEDS: HYDROcodone/APAP 5-325MG 1 EACH TAB PO PRN (07:33)
[2017-04-17 08:04] LABS: Add Differential Manual Differential
[2017-04-17] MEDS ORDERED: ASPIRIN 325 MG TAB PO SCH (09:00)
[2017-04-17] MEDS ORDERED: LEVOFLOXACIN 500 MG TAB PO SCH (09:45)
--- NOTE | 2017-04-17 11:11 | P.CRDCN ---
<Laly Yusuf E - Last Filed: 04/17/17 10:51> History of Present Illness Consult date: 04/17/17 Requesting physician: Collin Ramirez Consult reason: atrial fibrillation Chief complaint: Heart racing and near syncope History of present illness: This is a 61-year-old female with history of diabetes, hypertension, family history of premature coronary artery disease, asthma, uterine cancer, prior left sided pleural effusion status post thoracentesis, mesothelioma, who follows with Dr. Becker in the office. Patient recently had a chest tube drain placed, she is following up with oncology for mesothelioma as well as possible bronchiogenic carcinoma. Patient states that she got up yesterday felt extremely dizzy and felt her heart racing fast like she was to pass out. She went to her oncologist's office for an appointment, again states felt like she was going to pass out. EMS was called and patient was brought to the emergency room. Patient was found to be hypotensive in the emergency room and was given levophed. EKG on arrival there showed atrial fibrillation with a rapid ventricular response. Asked x-ray shows mild CHF with increasing moderate sized left pleural effusion. White blood cell count 0.7, hemoglobin 8.8, platelet count 130. Ataxia yesterday 3.5, 3.2 this morning. BUN 54 creatinine 1.6. Magnesium level I.3. Troponins 0.32, 0.22, 0.190. TSH level normal. Patient was initiated on IV heparin as well as IV Cardizem in the emergency room. She has converted to normal sinus rhythm and remains in normal sinus rhythm at the time of my examination. She denies any prior history of atrial fibrillation. Past Medical History Past Medical History: Asthma, Coronary Artery Disease (CAD), Cancer, Eye Disorder, Hyperlipidemia, Hypertension, Osteoarthritis (OA), Pneumonia Additional Past Medical History / Comment(s): Morbid obesity, bronchial asthma, coronary artery disease, hypertension, hyperlipidemia, uterine cancer, osteoarthritis, cataracts, migraines, peripheral neuropathy, episodic urinary tract infections, gout, mentally challenged History of Any Multi-Drug Resistant Organisms: None Reported Past Surgical History: Heart Catheterization, Hysterectomy, Orthopedic Surgery Additional Past Surgical History / Comment(s): Right hand surgery, bilateral bunionectomy, cataract surgery, EGD, colonoscopy, surgery for ingrowing toenails , cardiac catheterization, partial hysterectomy, THORACENTESIS Past Anesthesia/Blood Transfusion Reactions: Motion Sickness Additional Past Anesthesia/Blood Transfusion Reaction / Comment(s): clausterphobia Past Psychological History: No Psychological Hx Reported Additional Psychological History / Comment(s): per pt's sister diallo,pt is menatally challenged, unable to read or write.lives with [id number] , independant no assistive devices when up Smoking Status: Former smoker Past Alcohol Use History: None Reported Additional Past Alcohol Use History / Comment(s): QUIT SMOKING " A LONG TIME AGO " Past Drug Use History: None Reported - Past Family History Mother Family Medical History: Unable to Obtain Additional Family Medical History / Comment(s): PARKINSONS Father Family Medical History: Unable to Obtain Additional Family Medical History / Comment(s): HEMOCHROMATOSIS Medications and Allergies Home Medications Medication Instructions Recorded Confirmed Type Atenolol [Tenormin] 25 mg PO DAILY 08/02/15 04/16/17 History Atorvastatin [Lipitor] 40 mg PO HS 01/15/17 04/16/17 History Ascorbic Acid [Vitamin C] 500 mg PO DAILY 02/18/17 04/16/17 History Aspirin 81 mg PO DAILY 02/18/17 04/16/17 History Allergies Allergy/AdvReac Type Severity Reaction Status Date / Time adhesive tape Allergy Rash/Hives Verified 04/16/17 13:05 Iodinated Contrast Media - Allergy Anaphylaxis Verified 04/16/17 13:05 Oral and [Iodinated Contrast Media - IV Dye] Penicillins Allergy Rash/Hives Verified 04/16/17 13:05 Physical Exam Vitals: Vital Signs Temp Pulse Pulse Resp BP Pulse Ox 04/17/17 08:00 100.1 F H 77 18 106/52 99 04/17/17 06:50 67 16 108/55 95 04/17/17 05:50 83 16 111/61 93 L 04/17/17 04:49 76 16 137/64 95 04/17/17 03:55 114 H 16 122/67 95 04/17/17 03:21 130 H 16 113/56 95 04/17/17 02:24 130 H 20 97/57 93 L 04/17/17 00:24 129 H 16 114/70 98 04/16/17 23:54 98.7 F 121 H 18 107/62 96 04/16/17 23:20 121 H 18 100/77 98 04/16/17 22:56 146 H 18 114/55 95 04/16/17 22:41 155 H 18 135/65 96 04/16/17 22:28 132 H 18 98/61 99 04/16/17 22:00 98.0 F 117 H 16 120/75 94 L 04/16/17 20:51 119 H 18 103/58 99 04/16/17 20:23 135 H 18 98/53 99 04/16/17 19:38 98.0 F 134 H 18 114/64 99 04/16/17 18:58 140 H 18 113/56 99 04/16/17 18:31 138 H 18 104/60 99 04/16/17 18:17 140 H 18 80/58 96 04/16/17 17:46 119 H 18 101/52 99 04/16/17 17:35 125 H 18 97/54 99 04/16/17 17:23 140 H 18 79/45 99 04/16/17 17:14 135 H 18 86/40 99 04/16/17 16:41 143 H 18 86/54 96 04/16/17 16:09 145 H 20 88/54 96 04/16/17 15:38 97.9 F 126 H 18 101/44 98 04/16/17 15:01 97.8 F 147 H 18 89/52 98 04/16/17 14:32 153 H 18 100/42 99 04/16/17 14:05 152 H 18 83/48 99 04/16/17 13:53 132 H 18 80/41 99 04/16/17 13:46 97.8 F 164 H 164 H 18 107/60 98 04/16/17 13:00 98.8 F 165 H 18 121/90 95 Intake and Output 04/16/17 04/17/17 04/17/17 22:59 06:59 14:59 Intake Total 197.458 66.875 110.667 Output Total 350 Balance -152.542 66.875 110.667 Intake: Intake, IV Titration 197.458 66.875 110.667 Amount Diltiazem 125 mg In 14.333 110.667 Sodium Chloride 0.9% 100 ml @ 5 MG/HR 5 mls/hr IV .Q24H ONE Rx#:[id number] Norepinephrin 4 mg-0.9% 183.125 66.875 Ns Pmx 4 mg In 250 ml @ Titrate IV .Q0M ONE Rx#: [id number] Output: Urine 350 PHYSICAL EXAMINATION: HEENT: Head is atraumatic, normocephalic. Pupils equal, round. Neck is supple. There is no elevated jugular venous pressure. HEART EXAMINATION: S1 and S2 systolic ejection murmur is heard. CHEST EXAMINATION: Lungs reveal diminished air entry to the left posterior base. [address] to the left chest area ABDOMEN: Soft, V's, nontender. Bowel sounds are heard. No organomegaly noted. EXTREMITIES: 2+ peripheral pulses with no evidence of peripheral edema and no calf tenderness noted. NEUROLOGIC patient is awake, alert and oriented -3. . Results 04/17/17 05:22 04/17/17 05:22 Cardiac Enzymes 04/16/17 04/16/17 04/16/17 Range/Units 13:18 13:18 20:07 AST 23 (14-36) U/L CK-MB (CK-2) 1.1 4.0 H* (0.0-2.4) ng/mL Troponin I 0.320 H* 0.227 H* (0.000-0.034) ng/mL 04/17/17 Range/Units 00:45 AST (14-36) U/L CK-MB (CK-2) 10.8 H* (0.0-2.4) ng/mL Troponin I 0.191 H* (0.000-0.034) ng/mL Coagulation 04/16/17 Range/Units 13:18 PT 16.5 H (9.0-12.0) sec APTT 23.7 (22.0-30.0) sec Lipids 04/17/17 Range/Units 05: Triglycerides 192 H (<150) mg/dL Cholesterol 91 (<200) mg/dL HDL Cholesterol 12 L (40-60) mg/dL CBC 04/16/17 04/17/17 Range/Units 13:18 05:22 WBC 1.2 L* 0.7 L* (3.8-10.6) k/uL RBC 3.61 L 3.15 L (3.80-5.40) m/uL Hgb 10.2 L 8.8 L (11.4-16.0) gm/dL Hct 30.4 L 27.3 L (34.0-46.0) % Plt Count 176 130 L (150-450) k/uL Comprehensive Metabolic Panel 04/16/17 04/17/17 Range/Units 13:18 05:22 Sodium 139 141 (137-145) mmol/L Potassium 3.5 3.2 L (3.5-5.1) mmol/L Chloride 104 107 (98-107) mmol/L Carbon Dioxide 17 L 21 L (22-30) mmol/L BUN 56 H 54 H (7-17) mg/dL Creatinine 1.84 H 1.68 H (0.52-1.04) mg/dL Glucose 107 H 108 H (74-99) mg/dL Calcium 6.3 L* 6.2 L* (8.4-10.2) mg/dL AST 23 (14-36) U/L ALT 20 (9-52) U/L Alkaline Phosphatase 83 (38-126) U/L Total Protein 5.8 L (6.3-8.2) g/dL Albumin 2.9 L (3.5-5.0) g/dL Current Medications Generic Name Dose Route Start Last Admin Trade Name Freq PRN Reason Stop Dose Admin Hydrocodone Bitart/Acetaminophen 1 each 04/16/17 20:57 04/17/17 07:33 Nakina 5-325 PO 1 each Q6HR PRN Administration Pain Alprazolam 0.25 mg 04/16/17 20:57 Xanax PO TID PRN Anxiety Aspirin 81 mg 04/17/17 09:00 Aspirin PO DAILY [facility] Atenolol 25 mg 04/17/17 09:00 Tenormin PO DAILY [facility] Atorvastatin Calcium 40 mg 04/16/17 21:00 04/16/17 22:46 Lipitor PO 40 mg HS [place] Administration Hydromorphone HCl 0.5 mg 04/16/17 20:58 Dilaudid IVP Q6HR PRN Severe Pain Heparin Sodium/Dextrose 25,000 500 mls @ 20 mls/hr 04/16/17 16:45 04/16/17 17 :02 unit/ IV Solution IV 9.713 units/kg/hr .Q24H [place] 20 mls/hr Protocol Administration 9.713 UNITS/KG/HR Sodium Chloride 1,000 mls @ 20 mls/hr 04/16/17 16:45 04/16/17 17:02 Saline 0.9% IV 20 mls/hr .Q24H [place] Administration Calcium Gluconate 1,000 mg/ 110 mls @ 100 mls/hr 04/16/17 21:00 04/16/17 22: 43 Sodium Chloride IVPB 100 mls/hr BID [place] Administration Levofloxacin 500 mg 04/17/17 09:45 Levaquin PO Q24HR [place] Nitroglycerin 0.4 mg 04/16/17 16:35 Nitrostat SUBLINGUAL Q5M PRN Chest Pain Pantoprazole Sodium 40 mg 04/17/17 07:30 Protonix PO AC-BRKFST [place] Temazepam 15 mg 04/16/17 20:58 Restoril PO HS PRN Insomnia Tramadol HCl 50 mg 04/16/17 16:40 04/16/17 16:56 Ultram PO 50 mg Q4HR PRN Administration Pain Intake and Output 04/16/17 04/17/17 04/17/17 22:59 06:59 14:59 Intake Total 197.458 66.875 110.667 Output Total 350 Balance -152.542 66.875 110.667 Intake: Intake, IV Titration 197.458 66.875 110.667 Amount Diltiazem 125 mg In 14.333 110.667 Sodium Chloride 0.9% 100 ml @ 5 MG/HR 5 mls/hr IV .Q24H ONE Rx#:[id number] Norepinephrin 4 mg-0.9% 183.125 66.875 Ns Pmx 4 mg In 250 ml @ Titrate IV .Q0M ONE Rx#: [id number] Output: Urine 350 04/17/17 05:22 04/17/17 05:22 EKG Interpretations (text) Initial EKG shows atrial fibrillation with a rapid ventricular response repeat EKG shows a normal sinus rhythm with occasional PACs Assessment and Plan Plan: Assessment and plan #1 Atrial fibrillation with rapid ventricular response, paroxysmal. Currently in normal sinus rhythm. TSH normal #2 hypotension on arrival, blood pressure this morning 102/50 #3 hyperlipidemia #4 history of hypertension # 5 mesothelioma #6 recurrent pleural effusion #7 hypokalemia #8 hypomagnesemia #9 renal insufficiency #10 Leukopenia anemia, possibly secondary to malignancy. #11 abnormal troponin, not consistent with acute coronary syndrome, likely secondary to oxygen supply and demand mismatch. Plan Discontinue the IV Cardizem drip. Obtain echocardiogram with Doppler study. We will need to discuss with oncology whether or not patient is a candidate for anticoagulation. At this time continue IV heparin drip. Replace potassium and magnesium. Further recommendations to follow. DNP note has been reviewed, I agree with a documented findings and plan of care. Patient was seen and examined. <Ady Barfield - Last Filed: 04/17/17 12:28> Physical Exam Vitals: Vital Signs Temp Pulse Pulse Resp BP Pulse Ox 04/17/17 08:00 100.1 F H 77 18 106/52 99 04/17/17 06:50 67 16 108/55 95 04/17/17 05:50 83 16 111/61 93 L 04/17/17 04:49 76 16 137/64 95 04/17/17 03:55 114 H 16 122/67 95 04/17/17 03:21 130 H 16 113/56 95 04/17/17 02:24 130 H 20 97/57 93 L 04/17/17 00:24 129 H 16 114/70 98 04/16/17 23:54 98.7 F 121 H 18 107/62 96 04/16/17 23:20 121 H 18 100/77 98 04/16/17 22:56 146 H 18 114/55 95 04/16/17 22:41 155 H 18 135/65 96 04/16/17 22:28 132 H 18 98/61 99 04/16/17 22:00 98.0 F 117 H 16 120/75 94 L 04/16/17 20:51 119 H 18 103/58 99 04/16/17 20:23 135 H 18 98/53 99 04/16/17 19:38 98.0 F 134 H 18 114/64 99 04/16/17 18:58 140 H 18 113/56 99 04/16/17 18:31 138 H 18 104/60 99 04/16/17 18:17 140 H 18 80/58 96 04/16/17 17:46 119 H 18 101/52 99 04/16/17 17:35 125 H 18 97/54 99 04/16/17 17:23 140 H 18 79/45 99 04/16/17 17:14 135 H 18 86/40 99 04/16/17 16:41 143 H 18 86/54 96 04/16/17 16:09 145 H 20 88/54 96 04/16/17 15:38 97.9 F 126 H 18 101/44 98 04/16/17 15:01 97.8 F 147 H 18 89/52 98 04/16/17 14:32 153 H 18 100/42 99 04/16/17 14:05 152 H 18 83/48 99 04/16/17 13:53 132 H 18 80/41 99 04/16/17 13:46 97.8 F 164 H 164 H 18 107/60 98 04/16/17 13:00 98.8 F 165 H 18 121/90 95 Intake and Output 04/16/17 04/17/17 04/17/17 22:59 06:59 14:59 Intake Total 197.458 66.875 110.667 Output Total 350 Balance -152.542 66.875 110.667 Intake: Intake, IV Titration 197.458 66.875 110.667 Amount Diltiazem 125 mg In 14.333 110.667 Sodium Chloride 0.9% 100 ml @ 5 MG/HR 5 mls/hr IV .Q24H ONE Rx#:[id number] Norepinephrin 4 mg-0.9% 183.125 66.875 Ns Pmx 4 mg In 250 ml @ Titrate IV .Q0M ONE Rx#: [id number] Output: Urine 350 Other: Weight 102.965 kg 102.965 kg Patient Weight 04/18/17 06:59 Weight 102.965 kg Results 04/17/17 05:22 04/17/17 05:22 Cardiac Enzymes 04/16/17 04/16/17 04/16/17 Range/Units 13:18 13:18 20:07 AST 23 (14-36) U/L CK-MB (CK-2) 1.1 4.0 H* (0.0-2.4) ng/mL Troponin I 0.320 H* 0.227 H* (0.000-0.034) ng/mL 04/17/17 Range/Units 00:45 AST (14-36) U/L CK-MB (CK-2) 10.8 H* (0.0-2.4) ng/mL Troponin I 0.191 H* (0.000-0.034) ng/mL Coagulation 04/16/17 Range/Units 13:18 PT 16.5 H (9.0-12.0) sec APTT 23.7 (22.0-30.0) sec Lipids 04/17/17 Range/Units 05:22 Triglycerides 192 H (<150) mg/dL Cholesterol 91 (<200) mg/dL HDL Cholesterol 12 L (40-60) mg/dL CBC 04/16/17 04/17/17 Range/Units 13:18 05:22 WBC 1.2 L* 0.7 L* (3.8-10.6) k/uL RBC 3.61 L 3.15 L (3.80-5.40) m/uL Hgb 10.2 L 8.8 L (11.4-16.0) gm/dL Hct 30.4 L 27.3 L (34.0-46.0) % Plt Count 176 130 L (150-450) k/uL Comprehensive Metabolic Panel 04/16/17 04/17/17 Range/Units 13:18 05:22 Sodium 139 141 (137-145) mmol/L Potassium 3.5 3.2 L (3.5-5.1) mmol/L Chloride 104 107 (98-107) mmol/L Carbon Dioxide 17 L 21 L (22-30) mmol/L BUN 56 H 54 H (7-17) mg/dL Creatinine 1.84 H 1.68 H (0.52-1.04) mg/dL Glucose 107 H 108 H (74-99) mg/dL Calcium 6.3 L* 6.2 L* (8.4-10.2) mg/dL AST 23 (14-36) U/L ALT 20 (9-52) U/L Alkaline Phosphatase 83 (38-126) U/L Total Protein 5.8 L (6.3-8.2) g/dL Albumin 2.9 L (3.5-5.0) g/dL Current Medications Generic Name Dose Route Start Last Admin Trade Name Freq PRN Reason Stop Dose Admin Hydrocodone Bitart/Acetaminophen 1 each 04/16/17 20:57 04/17/17 07:33 Nakina 5-325 PO 1 each Q6HR PRN Administration Pain Alprazolam 0.25 mg 04/16/17 20:57 Xanax PO TID PRN Anxiety Aspirin 81 mg 04/17/17 09:00 Aspirin PO DAILY [facility] Atenolol 25 mg 04/17/17 09:00 Tenormin PO DAILY [facility] Atorvastatin Calcium 40 mg 04/16/17 21:00 04/16/17 22:46 Lipitor PO 40 mg HS [place] Administration Hydromorphone HCl 0.5 mg 04/16/17 20:58 Dilaudid IVP Q6HR PRN Severe Pain Heparin Sodium/Dextrose 25,000 500 mls @ 20 mls/hr 04/16/17 16:45 04/16/17 17 :02 unit/ IV Solution IV 9.713 units/kg/hr .Q24H [place] 20 mls/hr Protocol Administration 9.713 UNITS/KG/HR Sodium Chloride 1,000 mls @ 20 mls/hr 04/16/17 16:45 04/16/17 17:02 Saline 0.9% IV 20 mls/hr .Q24H [place] Administration Calcium Gluconate 1,000 mg/ 110 mls @ 100 mls/hr 04/16/17 21:00 04/16/17 22: 43 Sodium Chloride IVPB 100 mls/hr BID [place] Administration Magnesium Sulfate/Dextrose 1 100 mls @ 100 mls/hr 04/17/17 11:30 gm/ IV Solution IVPB 04/17/17 13:29 Q1H [facility] Levofloxacin 500 mg 04/17/17 09:45 Levaquin PO Q24HR [facility] Nitroglycerin 0.4 mg 04/16/17 16:35 Nitrostat SUBLINGUAL Q5M PRN Chest Pain Pantoprazole Sodium 40 mg 04/17/17 07:30 Protonix PO AC-BRKFST [facility] Potassium Chloride 20 meq 04/17/17 12:00 K-Dur 20 PO 04/17/17 16:01 Q2HR [facility] Temazepam 15 mg 04/16/17 20:58 Restoril PO HS PRN Insomnia Tramadol HCl 50 mg 04/16/17 16:40 04/16/17 16:56 Ultram PO 50 mg Q4HR PRN Administration Pain Intake and Output 04/16/17 04/17/17 04/17/17 22:59 06:59 14:59 Intake Total 197.458 66.875 110.667 Output Total 350 Balance -152.542 66.875 110.667 Intake: Intake, IV Titration 197.458 66.875 110.667 Amount Diltiazem 125 mg In 14.333 110.667 Sodium Chloride 0.9% 100 ml @ 5 MG/HR 5 mls/hr IV .Q24H ONE Rx#:[id number] Norepinephrin 4 mg-0.9% 183.125 66.875 Ns Pmx 4 mg In 250 ml @ Titrate IV .Q0M ONE Rx#: [id number] Output: Urine 350 Other: Weight 102.965 kg 102.965 kg Patient Weight 04/18/17 06:59 Weight 102.965 kg 04/17/17 05:22 04/17/17 05:22
--- NOTE | 2017-04-17 11:45 | P.CNPUL ---
History of Present Illness Consult date: 04/17/17 Requesting physician: Collin Ramirez Reason for consult: dyspnea Chief complaint: Heart tracing and near syncope History of present illness: This is a 61-year-old female, familiar to my service, patient is known to have history of mesothelioma affecting the left lung, this was diagnosed in the last a few months by Dr. Hernández who performed thoracoscopic lung evaluation, decortication, and Pleurx catheter placement. Pathology report from her pleural tissue came back positive for mesothelioma. Surprisingly the patient has done better than expected and she has been receiving chemotherapy for her mesothelioma from oncology. Patient was actually seen recently seen in my office, and she was doing quite well relatively asymptomatic, and her chest x- ray was relatively reassuring. On 04/16/2017, patient presented to the ER complaining of feeling extremely dizzy, heart racing and felt like she was going to pass out. Prior to this she was at the oncologist's office, and the patient was advised to go to the ER because of her symptoms and apparently upon presentation she was noted to be hypotensive requiring levo fed and she was also placed on Cardizem drip for her atrial fibrillation and RVR. Today the patient is back in sinus rhythm. She remains on Cardizem at 5 mg per hour. Seen already by cardiology, and I will go ahead and make recommendation for the patient to be seen by thoracic surgery on consultation since she has been complaining of the fact that the Pleurx catheter is not functioning. This will be addressed by thoracic surgery on the case. Today the patient is off norepinephrine, she remains on Cardizem, and she seems to be doing quite well considering her presentation. Review of Systems 14 point review of systems were obtained, please refer to the history of the present illness for positives and negatives. Past Medical History Past Medical History: Asthma, Coronary Artery Disease (CAD), Cancer, Eye Disorder, Hyperlipidemia, Hypertension, Osteoarthritis (OA), Pneumonia Additional Past Medical History / Comment(s): Morbid obesity, bronchial asthma, coronary artery disease, hypertension, hyperlipidemia, uterine cancer, osteoarthritis, cataracts, migraines, peripheral neuropathy, episodic urinary tract infections, gout, mentally challenged History of Any Multi-Drug Resistant Organisms: None Reported Past Surgical History: Heart Catheterization, Hysterectomy, Orthopedic Surgery Additional Past Surgical History / Comment(s): Right hand surgery, bilateral bunionectomy, cataract surgery, EGD, colonoscopy, surgery for ingrowing toenails , cardiac catheterization, partial hysterectomy, THORACENTESIS Past Anesthesia/Blood Transfusion Reactions: Motion Sickness Additional Past Anesthesia/Blood Transfusion Reaction / Comment(s): clausterphobia Past Psychological History: No Psychological Hx Reported Additional Psychological History / Comment(s): per pt's sister diallo,pt is menatally challenged, unable to read or write.lives with [id number] , independant no assistive devices when up Smoking Status: Former smoker Past Alcohol Use History: None Reported Additional Past Alcohol Use History / Comment(s): QUIT SMOKING " A LONG TIME AGO " Past Drug Use History: None Reported - Past Family History Mother Family Medical History: Unable to Obtain Additional Family Medical History / Comment(s): PARKINSONS Father Family Medical History: Unable to Obtain Additional Family Medical History / Comment(s): HEMOCHROMATOSIS Medications and Allergies Home Medications Medication Instructions Recorded Confirmed Type Atenolol [Tenormin] 25 mg PO DAILY 08/02/15 04/16/17 History Atorvastatin [Lipitor] 40 mg PO HS 01/15/17 04/16/17 History Ascorbic Acid [Vitamin C] 500 mg PO DAILY 02/18/17 04/16/17 History Aspirin 81 mg PO DAILY 02/18/17 04/16/17 History Allergies Allergy/AdvReac Type Severity Reaction Status Date / Time adhesive tape Allergy Rash/Hives Verified 04/16/17 13:05 Iodinated Contrast Media - Allergy Anaphylaxis Verified 04/16/17 13:05 Oral and [Iodinated Contrast Media - IV Dye] Penicillins Allergy Rash/Hives Verified 04/16/17 13:05 Physical Exam Vitals: Vital Signs Temp Pulse Pulse Resp BP Pulse Ox 04/17/17 08:00 100.1 F H 77 18 106/52 99 04/17/17 06:50 67 16 108/55 95 04/17/17 05:50 83 16 111/61 93 L 04/17/17 04:49 76 16 137/64 95 04/17/17 03:55 114 H 16 122/67 95 04/17/17 03:21 130 H 16 113/56 95 04/17/17 02:24 130 H 20 97/57 93 L 04/17/17 00:24 129 H 16 114/70 98 04/16/17 23:54 98.7 F 121 H 18 107/62 96 04/16/17 23:20 121 H 18 100/77 98 04/16/17 22:56 146 H 18 114/55 95 04/16/17 22:41 155 H 18 135/65 96 04/16/17 22:28 132 H 18 98/61 99 04/16/17 22:00 98.0 F 117 H 16 120/75 94 L 04/16/17 20:51 119 H 18 103/58 99 04/16/17 20:23 135 H 18 98/53 99 04/16/17 19:38 98.0 F 134 H 18 114/64 99 04/16/17 18:58 140 H 18 113/56 99 04/16/17 18:31 138 H 18 104/60 99 04/16/17 18:17 140 H 18 80/58 96 04/16/17 17:46 119 H 18 101/52 99 04/16/17 17:35 125 H 18 97/54 99 04/16/17 17:23 140 H 18 79/45 99 04/16/17 17:14 135 H 18 86/40 99 04/16/17 16:41 143 H 18 86/54 96 04/16/17 16:09 145 H 20 88/54 96 04/16/17 15:38 97.9 F 126 H 18 101/44 98 04/16/17 15:01 97.8 F 147 H 18 89/52 98 04/16/17 14:32 153 H 18 100/42 99 04/16/17 14:05 152 H 18 83/48 99 04/16/17 13:53 132 H 18 80/41 99 04/16/17 13:46 97.8 F 164 H 164 H 18 107/60 98 04/16/17 13:00 98.8 F 165 H 18 121/90 95 Intake and Output 04/16/17 04/17/17 04/17/17 22:59 06:59 14:59 Intake Total 197.458 66.875 110.667 Output Total 350 Balance -152.542 66.875 110.667 Intake: Intake, IV Titration 197.458 66.875 110.667 Amount Diltiazem 125 mg In 14.333 110.667 Sodium Chloride 0.9% 100 ml @ 5 MG/HR 5 mls/hr IV .Q24H ONE Rx#:[id number] Norepinephrin 4 mg-0.9% 183.125 66.875 Ns Pmx 4 mg In 250 ml @ Titrate IV .Q0M ONE Rx#: [id number] Output: Urine 350 Physical Exam: Revealed a 61-year-old female in no form of respiratory distress. HEENT:[Neck is supple.] [No neck masses.] [No thyromegaly.] [No JVD.] Chest: [Diminished breath sounds at the left base., no crackles, no rhonchi, no wheezes.] Cardiac Exam: [Normal S1 and S2, no S3 gallop, no murmur.] Abdomen: [Soft, nontender, no megaly, no rebound, no guarding, normal bowel sounds.] Extremities: [No clubbing, no edema, no cyanosis.] Neurological Exam: [No focal neurologic deficit.] Results - Laboratory Findings CBC and BMP: 04/17/17 05:22 04/17/17 05:22 PT/INR, D-dimer PT 16.5 sec (9.0-12.0) H 04/16/17 13:18 INR 1.7 (<1.1) 04/16/17 13:18 Abnormal lab findings: Abnormal Labs 04/16/17 04/16/17 04/16/17 13:18 13:18 13:18 WBC 1.2 L* RBC 3.61 L Hgb 10.2 L Hct 30.4 L RDW 19.1 H Plt Count Neutrophils # (Manual) 0.6 L Lymphocytes # (Manual) 0.6 L PT Potassium Carbon Dioxide 17 L BUN 56 H Creatinine 1.84 H Glucose 107 H Calcium 6.3 L* Magnesium 1.3 L Total Bilirubin 1.5 H Total Creatine Kinase CK-MB (CK-2) Troponin I 0.320 H* Total Protein 5.8 L Albumin 2.9 L Triglycerides HDL Cholesterol Urine Appearance Urine Protein Urine Ketones Urine Blood Ur Leukocyte Esterase Urine WBC Urine Bacteria Urine Mucus 04/16/17 04/16/17 04/16/17 13:18 20:07 22:57 WBC RBC Hgb Hct RDW Plt Count Neutrophils # (Manual) Lymphocytes # (Manual) PT 16.5 H Potassium Carbon Dioxide BUN Creatinine Glucose Calcium Magnesium Total Bilirubin Total Creatine Kinase 213 H CK-MB (CK-2) 4.0 H* Troponin I 0.227 H* Total Protein Albumin Triglycerides HDL Cholesterol Urine Appearance Cloudy H Urine Protein 1+ H Urine Ketones 1+ H Urine Blood Moderate H Ur Leukocyte Esterase Trace H Urine WBC 19 H Urine Bacteria Occasional H Urine Mucus Rare H 04/17/17 04/17/17 04/17/17 00:45 05:22 05:22 WBC 0.7 L* RBC 3.15 L Hgb 8.8 L Hct 27.3 L RDW 18.9 H Plt Count 130 L Neutrophils # (Manual) Lymphocytes # (Manual) PT Potassium 3.2 L Carbon Dioxide 21 L BUN 54 H Creatinine 1.68 H Glucose 108 H Calcium 6.2 L* Magnesium Total Bilirubin Total Creatine Kinase 507 H CK-MB (CK-2) 10.8 H* Troponin I 0.191 H* Total Protein Albumin Triglycerides 192 H HDL Cholesterol 12 L Urine Appearance Urine Protein Urine Ketones Urine Blood Ur Leukocyte Esterase Urine WBC Urine Bacteria Urine Mucus - Diagnostic Findings Chest x-ray: image reviewed (Moderate left pleural effusion, atelectasis, consolidation suspected in the left base.) Assessment and Plan Plan: Impression: 1 acute atrial fibrillation with RVR, converted to normal sinus rhythm with Cardizem drip. 2 left-sided mesothelioma and pleural effusion, previous decortication and Pleurx catheter placement. 3 leukopenia and anemia secondary to chemotherapy given for her mesothelioma. 4 hypotension on presentation secondary to atrial fibrillation with RVR. 5 suspect acute kidney injury, secondary to hypotension and acute tubular necrosis. 6 history of underlying coronary artery disease 7 history of bronchial asthma 8 history of multiple comorbidities including hyperlipidemia, uterine cancer, peripheral neuropathy, gout, mentally challenged, and history of claustrophobia. Recommendation: Agree with present treatment plan, not much to be done from my perspective, we'll continue to follow closely with you. Time with Patient: Greater than 30
--- NOTE | 2017-04-17 12:23 | P.GSCN ---
Addendum entered and electronically signed by Citlaly Morel NP-C 04/17/17 13:46 : Addendum: Pleurx cath instilled with 10 ml NS. Return of approximately 10 ml purulent, thick drainage. Opening around pleux widened, reddened and draining foul smelling purulent drainage. Dressing was saturated as well. Culture sent for aerobic/anaerobic pathology. Original Note: <Citlaly Morel - Last Filed: 04/17/17 12:05> History of Present Illness Consult date: 04/17/17 Reason for Consult: Non-draining pleurx catheter Requesting physician: Bashir Hogan History of present illness: This 61 year old female with a history of asthma, CAD, hyperlipidemia, hypertension, and recent diagnosis of mesothelioma currently being treated by Dr. Lin presented to the emergency room yesterday with complaints of dizziness, racing heart and feeling like she was going to pass out. She was determined to be in atrial fibrillation with rapid ventricular response, which she has no history of, and hypotension. She was place on levophed and cardizem drips, and admitted with consults for cardiology, pulmonology, and oncology. She converted to NSR. Cardiothoracic surgery was consulted secondary to the pleurx catheter placed on 01/25/17 after left thorascopic exploration with biopsy of the visceral pleural nodular deposit which was pathologically significant for mesothelioma. Apparently, her pleurx catheter is no longer draining. Review of Systems 14 point review of systems was completed and was negative except noted in the HPI. Past Medical History Past Medical History: Asthma, Coronary Artery Disease (CAD), Cancer, Eye Disorder, Hyperlipidemia, Hypertension, Osteoarthritis (OA), Pneumonia Additional Past Medical History / Comment(s): Morbid obesity, bronchial asthma, coronary artery disease, hypertension, hyperlipidemia, uterine cancer, osteoarthritis, cataracts, migraines, peripheral neuropathy, episodic urinary tract infections, gout, mentally challenged History of Any Multi-Drug Resistant Organisms: None Reported Past Surgical History: Heart Catheterization, Hysterectomy, Orthopedic Surgery Additional Past Surgical History / Comment(s): Right hand surgery, bilateral bunionectomy, cataract surgery, EGD, colonoscopy, surgery for ingrowing toenails , cardiac catheterization, partial hysterectomy, THORACENTESIS Past Anesthesia/Blood Transfusion Reactions: Motion Sickness Additional Past Anesthesia/Blood Transfusion Reaction / Comm: clausterphobia Past Psychological History: No Psychological Hx Reported Additional Psychological History / Comment(s): per pt's sister diallo,pt is menatally challenged, unable to read or write.lives with [id number] , independant no assistive devices when up Smoking Status: Former smoker Past Alcohol Use History: None Reported Additional Past Alcohol Use History / Comment(s): QUIT SMOKING " A LONG TIME AGO " Past Drug Use History: None Reported - Past Family History Mother Family Medical History: Unable to Obtain Additional Family Medical History / Comment(s): PARKINSONS Father Family Medical History: Unable to Obtain Additional Family Medical History / Comment(s): HEMOCHROMATOSIS Medications and Allergies Home Medications Medication Instructions Recorded Confirmed Type Atenolol [Tenormin] 25 mg PO DAILY 08/02/15 04/16/17 History Atorvastatin [Lipitor] 40 mg PO HS 01/15/17 04/16/17 History Ascorbic Acid [Vitamin C] 500 mg PO DAILY 02/18/17 04/16/17 History Aspirin 81 mg PO DAILY 02/18/17 04/16/17 History Allergies Allergy/AdvReac Type Severity Reaction Status Date / Time adhesive tape Allergy Rash/Hives Verified 04/16/17 13:05 Iodinated Contrast Media - Allergy Anaphylaxis Verified 04/16/17 13:05 Oral and [Iodinated Contrast Media - IV Dye] Penicillins Allergy Rash/Hives Verified 04/16/17 13:05 Surgical - Exam Vital Signs Temp Pulse Resp BP Pulse Ox 98.8 F 165 H 18 121/90 95 04/16/17 13:00 04/16/17 13:00 04/16/17 13:00 04/16/17 13:00 04/16/17 13:00 - General well developed, well nourished, no distress, no pain, obese - Eyes PERRL, normal ocular movement - ENT no hearing loss - Neck trachea midline - Respiratory Lung sounds diminished bilaterally with coarse breath sounds on the left. Resp even/non-labored. Currently on 2 LPM NC with oxygen saturation 99%. Left pleurx catheter present, dressing has small amount serous drainage. - Cardiovascular S1/S2 present. Reg rate and rhythm, currently NSR on cardizem drip. - Abdomen Abdomen: soft, non tender, bowel sounds - Genitourinary deferred - Rectum deferred - Musculoskeletal normal gait - Psychiatric oriented to time, oriented to person, oriented to place Results - Labs 04/17/17 05:22 04/17/17 05:22 Abnormal Lab Results - Last 24 Hours (Table) 04/16/17 04/16/17 04/16/17 Range/Units 13:18 13:18 13:18 WBC 1.2 L* (3.8-10.6) k/uL RBC 3.61 L (3.80-5.40) m/uL Hgb 10.2 L (11.4-16.0) gm/dL Hct 30.4 L (34.0-46.0) % RDW 19.1 H (11.5-15.5) % Plt Count (150-450) k/uL Neutrophils # (Manual) 0.6 L (1.3-7.7) k/uL Lymphocytes # (Manual) 0.6 L (1.0-4.8) k/uL PT (9.0-12.0) sec Potassium (3.5-5.1) mmol/L Carbon Dioxide 17 L (22-30) mmol/L BUN 56 H (7-17) mg/dL Creatinine 1.84 H (0.52-1.04) mg/dL Glucose 107 H (74-99) mg/dL Calcium 6.3 L* (8.4-10.2) mg/dL Magnesium 1.3 L (1.6-2.3) mg/dL Total Bilirubin 1.5 H (0.2-1.3) mg/dL Total Creatine Kinase (30-135) U/L CK-MB (CK-2) (0.0-2.4) ng/mL Troponin I 0.320 H* (0.000-0.034) ng/mL Total Protein 5.8 L (6.3-8.2) g/dL Albumin 2.9 L (3.5-5.0) g/dL Triglycerides (<150) mg/dL HDL Cholesterol (40-60) mg/dL Urine Appearance (Clear) Urine Protein (Negative) Urine Ketones (Negative) Urine Blood (Negative) Ur Leukocyte Esterase (Negative) Urine WBC (0-5) /hpf Urine Bacteria (None) /hpf Urine Mucus (None) /hpf 04/16/17 04/16/17 04/16/17 Range/Units 13:18 20:07 22:57 WBC (3.8-10.6) k/uL RBC (3.80-5.40) m/uL Hgb (11.4-16.0) gm/dL Hct (34.0-46.0) % RDW (11.5-15.5) % Plt Count (150-450) k/uL Neutrophils # (Manual) (1.3-7.7) k/uL Lymphocytes # (Manual) (1.0-4.8) k/uL PT 16.5 H (9.0-12.0) sec Potassium (3.5-5.1) mmol/L Carbon Dioxide (22-30) mmol/L BUN (7-17) mg/dL Creatinine (0.52-1.04) mg/dL Glucose (74-99) mg/dL Calcium (8.4-10.2) mg/dL Magnesium (1.6-2.3) mg/dL Total Bilirubin (0.2-1.3) mg/dL Total Creatine Kinase 213 H (30-135) U/L CK-MB (CK-2) 4.0 H* (0.0-2.4) ng/mL Troponin I 0.227 H* (0.000-0.034) ng/mL Total Protein (6.3-8.2) g/dL Albumin (3.5-5.0) g/dL Triglycerides (<150) mg/dL HDL Cholesterol (40-60) mg/dL Urine Appearance Cloudy H (Clear) Urine Protein 1+ H (Negative) Urine Ketones 1+ H (Negative) Urine Blood Moderate H (Negative) Ur Leukocyte Esterase Trace H (Negative) Urine WBC 19 H (0-5) /hpf Urine Bacteria Occasional H (None) /hpf Urine Mucus Rare H (None) /hpf 04/17/17 04/17/17 04/17/17 Range/Units 00:45 05:22 05:22 WBC 0.7 L* (3.8-10.6) k/uL RBC 3.15 L (3.80-5.40) m/uL Hgb 8.8 L (11.4-16.0) gm/dL Hct 27.3 L (34.0-46.0) % RDW 18.9 H (11.5-15.5) % Plt Count 130 L (150-450) k/uL Neutrophils # (Manual) (1.3-7.7) k/uL Lymphocytes # (Manual) (1.0-4.8) k/uL PT (9.0-12.0) sec Potassium 3.2 L (3.5-5.1) mmol/L Carbon Dioxide 21 L (22-30) mmol/L BUN 54 H (7-17) mg/dL Creatinine 1.68 H (0.52-1.04) mg/dL Glucose 108 H (74-99) mg/dL Calcium 6.2 L* (8.4-10.2) mg/dL Magnesium (1.6-2.3) mg/dL Total Bilirubin (0.2-1.3) mg/dL Total Creatine Kinase 507 H (30-135) U/L CK-MB (CK-2) 10.8 H* (0.0-2.4) ng/mL Troponin I 0.191 H* (0.000-0.034) ng/mL Total Protein (6.3-8.2) g/dL Albumin (3.5-5.0) g/dL Triglycerides 192 H (<150) mg/dL HDL Cholesterol 12 L (40-60) mg/dL Urine Appearance (Clear) Urine Protein (Negative) Urine Ketones (Negative) Urine Blood (Negative) Ur Leukocyte Esterase (Negative) Urine WBC (0-5) /hpf Urine Bacteria (None) /hpf Urine Mucus (None) /hpf Microbiology - Last 24 Hours (Table) 04/16/17 13:18 Blood Culture Gram Stain - Preliminary Blood Diabetes panel 04/16/17 04/17/17 Range/Units 13:18 05:22 Sodium 139 141 (137-145) mmol/L Potassium 3.5 3.2 L (3.5-5.1) mmol/L Chloride 104 107 (98-107) mmol/L Carbon Dioxide 17 L 21 L (22-30) mmol/L BUN 56 H 54 H (7-17) mg/dL Creatinine 1.84 H 1.68 H (0.52-1.04) mg/dL Glucose 107 H 108 H (74-99) mg/dL Calcium 6.3 L* 6.2 L* (8.4-10.2) mg/dL AST 23 (14-36) U/L ALT 20 (9-52) U/L Alkaline Phosphatase 83 (38-126) U/L Total Protein 5.8 L (6.3-8.2) g/dL Albumin 2.9 L (3.5-5.0) g/dL Triglycerides 192 H (<150) mg/dL HDL Cholesterol 12 L (40-60) mg/dL Thyroid panel 04/16/17 Range/Units 13:18 TSH 2.920 (0.465-4.680) mIU/L Calcium panel 04/16/17 04/17/17 Range/Units 13:18 05:22 Calcium 6.3 L* 6.2 L* (8.4-10.2) mg/dL Albumin 2.9 L (3.5-5.0) g/dL Pituitary panel 04/16/17 04/17/17 Range/Units 13:18 05:22 Sodium 139 141 (137-145) mmol/L Potassium 3.5 3.2 L (3.5-5.1) mmol/L Chloride 104 107 (98-107) mmol/L Carbon Dioxide 17 L 21 L (22-30) mmol/L BUN 56 H 54 H (7-17) mg/dL Creatinine 1.84 H 1.68 H (0.52-1.04) mg/dL Glucose 107 H 108 H (74-99) mg/dL Calcium 6.3 L* 6.2 L* (8.4-10.2) mg/dL TSH 2.920 (0.465-4.680) mIU/L Adrenal panel 04/16/17 04/17/17 Range/Units 13:18 05:22 Sodium 139 141 (137-145) mmol/L Potassium 3.5 3.2 L (3.5-5.1) mmol/L Chloride 104 107 (98-107) mmol/L Carbon Dioxide 17 L 21 L (22-30) mmol/L BUN 56 H 54 H (7-17) mg/dL Creatinine 1.84 H 1.68 H (0.52-1.04) mg/dL Glucose 107 H 108 H (74-99) mg/dL Calcium 6.3 L* 6.2 L* (8.4-10.2) mg/dL Total Bilirubin 1.5 H (0.2-1.3) mg/dL AST 23 (14-36) U/L ALT 20 (9-52) U/L Alkaline Phosphatase 83 (38-126) U/L Total Protein 5.8 L (6.3-8.2) g/dL Albumin 2.9 L (3.5-5.0) g/dL - Imaging Chest x-ray: image reviewed Assessment and Plan (1) Mesothelioma Status: Acute (2) Rapid atrial fibrillation Status: Acute (3) Pleural effusion Status: Acute Plan: The patient was seen and examined. Chart/diagnostics were reviewed. We will try instilling sterile NaCl into the pleurx catheter to determine if occlusion is causing the lack of drainage. If unsuccessful, we will likely remove the pleurx catheter per the patient/family/physician's wishes. Medical management per internal medicine/oncology. Thank you Dr. Hogan for the consult. We look forward to working with you in the care of your patient. Time with Patient: Greater than 30 <Adarsh Alvarez - Last Filed: 04/17/17 18:21> Surgical - Exam Vital Signs Temp Pulse Resp BP Pulse Ox 98.8 F 165 H 18 121/90 95 04/16/17 13:00 04/16/17 13:00 04/16/17 13:00 04/16/17 13:00 04/16/17 13:00 Results - Labs 04/17/17 05:22 04/17/17 05:22 Abnormal Lab Results - Last 24 Hours (Table) 04/16/17 04/16/17 04/17/17 Range/Units 20:07 22:57 00:45 WBC (3.8-10.6) k/uL RBC (3.80-5.40) m/uL Hgb (11.4-16.0) gm/dL Hct (34.0-46.0) % RDW (11.5-15.5) % Plt Count (150-450) k/uL Potassium (3.5-5.1) mmol/L Carbon Dioxide (22-30) mmol/L BUN (7-17) mg/dL Creatinine (0.52-1.04) mg/dL Glucose (74-99) mg/dL POC Glucose (mg/dL) (75-99) mg/dL Calcium (8.4-10.2) mg/dL Total Creatine Kinase 213 H 507 H (30-135) U/L CK-MB (CK-2) 4.0 H* 10.8 H* (0.0-2.4) ng/mL Troponin I 0.227 H* 0.191 H* (0.000-0.034) ng/mL Triglycerides (<150) mg/dL HDL Cholesterol (40-60) mg/dL Urine Appearance Cloudy H (Clear) Urine Protein 1+ H (Negative) Urine Ketones 1+ H (Negative) Urine Blood Moderate H (Negative) Ur Leukocyte Esterase Trace H (Negative) Urine WBC 19 H (0-5) /hpf Urine Bacteria Occasional H (None) /hpf Urine Mucus Rare H (None) /hpf 04/17/17 04/17/17 04/17/17 Range/Units 05:22 05:22 15:05 WBC 0.7 L* (3.8-10.6) k/uL RBC 3.15 L (3.80-5.40) m/uL Hgb 8.8 L (11.4-16.0) gm/dL Hct 27.3 L (34.0-46.0) % RDW 18.9 H (11.5-15.5) % Plt Count 130 L (150-450) k/uL Potassium 3.2 L (3.5-5.1) mmol/L Carbon Dioxide 21 L (22-30) mmol/L BUN 54 H (7-17) mg/dL Creatinine 1.68 H (0.52-1.04) mg/dL Glucose 108 H (74-99) mg/dL POC Glucose (mg/dL) 107 H (75-99) mg/dL Calcium 6.2 L* (8.4-10.2) mg/dL Total Creatine Kinase (30-135) U/L CK-MB (CK-2) (0.0-2.4) ng/mL Troponin I (0.000-0.034) ng/mL Triglycerides 192 H (<150) mg/dL HDL Cholesterol 12 L (40-60) mg/dL Urine Appearance (Clear) Urine Protein (Negative) Urine Ketones (Negative) Urine Blood (Negative) Ur Leukocyte Esterase (Negative) Urine WBC (0-5) /hpf Urine Bacteria (None) /hpf Urine Mucus (None) /hpf Microbiology - Last 24 Hours (Table) 04/16/17 13:18 Blood Culture - Preliminary Blood No Growth after 24 hours 04/16/17 13:18 Blood Culture Gram Stain - Preliminary Blood Diabetes panel 04/17/17 Range/Units 05:22 Sodium 141 (137-145) mmol/L Potassium 3.2 L (3.5-5.1) mmol/L Chloride 107 (98-107) mmol/L Carbon Dioxide 21 L (22-30) mmol/L BUN 54 H (7-17) mg/dL Creatinine 1.68 H (0.52-1.04) mg/dL Glucose 108 H (74-99) mg/dL Calcium 6.2 L* (8.4-10.2) mg/dL Triglycerides 192 H (<150) mg/dL HDL Cholesterol 12 L (40-60) mg/dL Calcium panel 04/17/17 Range/Units 05:22 Calcium 6.2 L* (8.4-10.2) mg/dL Pituitary panel 04/17/17 Range/Units 05:22 Sodium 141 (137-145) mmol/L Potassium 3.2 L (3.5-5.1) mmol/L Chloride 107 (98-107) mmol/L Carbon Dioxide 21 L (22-30) mmol/L BUN 54 H (7-17) mg/dL Creatinine 1.68 H (0.52-1.04) mg/dL Glucose 108 H (74-99) mg/dL Calcium 6.2 L* (8.4-10.2) mg/dL Adrenal panel 04/17/17 Range/Units 05:22 Sodium 141 (137-145) mmol/L Potassium 3.2 L (3.5-5.1) mmol/L Chloride 107 (98-107) mmol/L Carbon Dioxide 21 L (22-30) mmol/L BUN 54 H (7-17) mg/dL Creatinine 1.68 H (0.52-1.04) mg/dL Glucose 108 H (74-99) mg/dL Calcium 6.2 L* (8.4-10.2) mg/dL Assessment and Plan Plan: The patient was seen and examined. I agree with the above assessment and plan. She is a 61-year-old female, well-known to our service, who underwent Left VATS with biopsy and placement of a Pleurx catheter in January 2017. She was diagnosed with mesothelioma. Apparently her Pleurx catheter is no longer draining. Request has been made to remove the catheter. The Pleurx catheter was removed at the bedside without difficulty. It actually slid right out with gentle traction. Further care will be directed by her primary service.
[2017-04-17] MEDS ORDERED: DEXTROSE 5% IN WATER 100 ML with AMIODARONE 300 MG IV ONE (12:32)
[2017-04-17] MEDS: PANTOPRAZOLE 40 MG TABLET PO SCH (13:43)
[2017-04-17] MEDS: ATENOLOL 25 MG TAB PO SCH (13:54)
[2017-04-17] MEDS: POTASSIUM CHLORIDE ER 20 MEQ TAB.ER PO SCH ×3 (13:54→14:49)
[2017-04-17] MEDS: ASPIRIN 81 MG CHEW PO SCH (13:55)
[2017-04-17] MEDS: MAGNESIUM SULFATE-D5W PMX 1 GM in DEXTROSE/WATER 1 100ML.BAG IVPB SCH ×2 (13:55→18:37)
[2017-04-17] MEDS: CALCIUM GLUCONATE 1,000 MG in SODIUM CHLORIDE 0.9% 100 ML IVPB SCH ×2 (14:44→14:48)
[2017-04-17 15:07] LABS: Glucose,Whole Blood 107 mg/dL (75-99)
[2017-04-17] MEDS ORDERED: IV VANCOMYCIN PER PHARMACY 1 EACH MISC MISCELLANE PRN (15:26)
[2017-04-17] MEDS: AMIODARONE 450 MG in DEXTROSE 5% IN WATER 250 ML IV SCH ×4 (15:36→22:07)
[2017-04-17] MEDS: PIPERACILLIN-TAZOBACTAM 3.375 GM in DEXTROSE/WATER 1 50ML.BAG IVPB SCH (16:55)
[2017-04-17] MEDS: HEPARIN SODIUM,PORCINE/D5W PMX 25,000 UNIT in DEXTROSE/WATER 1 500ML.BAG IV SCH (17:02)
[2017-04-17] MEDS ORDERED: HYDROmorphone 1 MG/ML 1 ML SYRINGE IVP PRN (17:19)
[2017-04-17] MEDS ORDERED: HYDROmorphone 1 MG/ML 1 ML SYRINGE IM STA (17:23)
[2017-04-17] MEDS ORDERED: HYDROmorphone 1 MG/ML 1 ML SYRINGE IVP STA (17:33)
[2017-04-17] MEDS ORDERED: MIDAZOLAM 2 MG/2 ML VIAL ONE (17:39)
--- NOTE | 2017-04-17 17:52 | P.CONS ---
History of Present Illness - Reason for Consult Consult date: 04/17/17 on treatment for mesothelioma Requesting physician: Suraj Washington - Chief Complaint tachycardia, cold sweats - History of Present Illness Ms. Britton is a very pleasant female pt of Dr. Lin who was initially diagnosed with stage IA, FIGO grade I endometrial carcinoma, confined to the endometrium in August 2009, treated with hysterectomy and BSO, [employer] INSPECTOR/Onc at [facility] recommended for observation. Her CT scan in September 2012 was negative for recurrence and she was last seen by Dr. Dumas in 04/06. 02/[address] AP ordered by her [employer] Technician to evaluate her chronic abdominal pain. This revealed a small 0.6 cm nodule in the RLL, which appeared to be post inflammatory on CT chest. Pt was seen for an OV with Dr. Lin on 11/16/14, as she was told that the spot on her lung could be malignant. A PET was ordered but, pt did not follow up and her phone was disconnected. She was seen in consult at [facility] 01/21/17 when she was admitted with recurrent left pleural effusion, thoracentesis on 01/15/17 was negative for malignancy. She had a repeat thora that was again negative. She underwent a VATS, with PleurX catheter placement, there was gross infiltration of the pleura, biopsy, post consult from the [facility], was read as epitheloid mesothelioma. PET on 02/16/17 revealed uptake in the left lower anterior pleura and the adjacent LLL. She was started on cisplatin and Alimta. Her SOB improved, PleurX catheter draining less and less. She had her 3rd cycle on 04/11 and neulasta on 04/12. She was in the office yesterday for treatment f/u. She fell while in waiting room so staff brought her to chemo room and started hydration and took VS, pt was tachycardic and hypotensive, afebrile. ANC was noted to be 800, Hgb 9.9, plt 188K. When I went to see pt she was sweating, cold to touch, stated "I feel terrible". Her pleural drain insertion site is very sore, the dressing has needed to be changed due to drainage around the tube, pt states she was started on abx by someone. After brief evaluation of the pt it was obvious she required higher level of care, EMS took pt to [facility]. Pt seen in ICU today, she looks much better then yesterday! She converted on telemetry during evaluation. She denies fever, cold sweats stopped, her throat is very sore and she wants ice chips, she denies feeling palpitations. She has a lot of pain on her right side where the drain is, it radiates in the area, constant, better with pain meds and if she stays still, worse with movement and deep breathing. No c/o r/t elimination, no acute irritation from berg catheter. Review of Systems All systems: negative Constitutional: Reports as per HPI Past Medical History Past Medical History: Asthma, Coronary Artery Disease (CAD), Cancer, Eye Disorder, Hyperlipidemia, Hypertension, Osteoarthritis (OA), Pneumonia Additional Past Medical History / Comment(s): Morbid obesity, bronchial asthma, coronary artery disease, hypertension, hyperlipidemia, uterine cancer, osteoarthritis, cataracts, migraines, peripheral neuropathy, episodic urinary tract infections, gout, mentally challenged History of Any Multi-Drug Resistant Organisms: None Reported Past Surgical History: Heart Catheterization, Hysterectomy, Orthopedic Surgery Additional Past Surgical History / Comment(s): Right hand surgery, bilateral bunionectomy, cataract surgery, EGD, colonoscopy, surgery for ingrowing toenails , cardiac catheterization, partial hysterectomy, THORACENTESIS Past Anesthesia/Blood Transfusion Reactions: Motion Sickness Additional Past Anesthesia/Blood Transfusion Reaction / Comm: clausterphobia Past Psychological History: No Psychological Hx Reported Additional Psychological History / Comment(s): per pt's sister diallo,pt is menatally challenged, unable to read or write.lives with [id number] , independant no assistive devices when up Smoking Status: Former smoker Past Alcohol Use History: None Reported Additional Past Alcohol Use History / Comment(s): QUIT SMOKING " A LONG TIME AGO " Past Drug Use History: None Reported - Past Family History Mother Family Medical History: Unable to Obtain Additional Family Medical History / Comment(s): PARKINSONS Father Family Medical History: Unable to Obtain Additional Family Medical History / Comment(s): HEMOCHROMATOSIS Medications and Allergies Home Medications Medication Instructions Recorded Confirmed Type Atenolol [Tenormin] 25 mg PO DAILY 08/02/15 04/16/17 History Atorvastatin [Lipitor] 40 mg PO HS 01/15/17 04/16/17 History Ascorbic Acid [Vitamin C] 500 mg PO DAILY 02/18/17 04/16/17 History Aspirin 81 mg PO DAILY 02/18/17 04/16/17 History Allergies Allergy/AdvReac Type Severity Reaction Status Date / Time adhesive tape Allergy Rash/Hives Verified 04/16/17 13:05 Iodinated Contrast Media - Allergy Anaphylaxis Verified 04/16/17 13:05 Oral and [Iodinated Contrast Media - IV Dye] Penicillins Allergy Rash/Hives Verified 04/16/17 13:05 Physical Exam Vitals: Vital Signs Temp Pulse Pulse Resp BP BP Pulse Ox 04/17/17 15:50 145 H 18 102/62 98 04/17/17 15:30 122 H 20 85/68 04/17/17 15:20 140 H 18 103/58 98 04/17/17 15:18 99 F 156 H 16 103/58 98 04/17/17 15:00 122 H 16 95/55 04/17/17 14:32 77 16 130/84 2 L 04/17/17 12:00 122 H 16 86/61 95 04/17/17 08:00 100.1 F H 77 18 106/52 99 04/17/17 06:50 67 16 108/55 95 04/17/17 05:50 83 16 111/61 93 L 04/17/17 04:49 76 16 137/64 95 04/17/17 03:55 114 H 16 122/67 95 04/17/17 03:21 130 H 16 113/56 95 04/17/17 02:24 130 H 20 97/57 93 L 04/17/17 00:24 129 H 16 114/70 98 04/16/17 23:54 98.7 F 121 H 18 107/62 96 04/16/17 23:20 121 H 18 100/77 98 04/16/17 22:56 146 H 18 114/55 95 04/16/17 22:41 155 H 18 135/65 96 04/16/17 22:28 132 H 18 98/61 99 04/16/17 22:00 98.0 F 117 H 16 120/75 94 L 04/16/17 20:51 119 H 18 103/58 99 04/16/17 20:23 135 H 18 98/53 99 04/16/17 19:38 98.0 F 134 H 18 114/64 99 05/23/17 18:58 140 H 18 113/56 99 04/16/17 18:31 138 H 18 104/60 99 04/16/17 18:17 140 H 18 80/58 96 04/16/17 17:46 119 H 18 101/52 99 04/16/17 17:35 125 H 18 97/54 99 04/16/17 17:23 140 H 18 79/45 99 04/16/17 17:14 135 H 18 86/40 99 04/16/17 16:41 143 H 18 86/54 96 Intake and Output 04/17/17 04/17/17 04/17/17 06:59 14:59 22:59 Intake Total 66.875 052.085 1285 Balance 66.875 960.726 4200 Intake: Intake, IV Titration 66.875 450.606 7681 Amount Dextrose 5% in Water 100 100 ml @ 618 mls/hr IV .Q11M ONE with Amiodarone 300 mg Rx#:[id number] Diltiazem 125 mg In 110.667 Sodium Chloride 0.9% 100 ml @ 5 MG/HR 5 mls/hr IV .Q24H ONE Rx#:[id number] Norepinephrin 4 mg-0.9% 66.875 Ns Pmx 4 mg In 250 ml @ Titrate IV .Q0M ONE Rx#: [id number] Sodium Chloride 0.9% 500 1000 ml @ 999 mls/hr IV .Q31M ONE Rx#:[id number] Oral 200 Other: Voiding Method Bedside Commode Weight 102.965 kg Patient Weight 04/18/17 06:59 Weight 102.965 kg - Constitutional General appearance: cooperative, no acute distress, obese - EENT dry, reddened tongue and oral mucosa Eyes: anicteric sclerae, PERRLA, normal appearance - Neck Neck: no lymphadenopathy - Respiratory Respiratory: bilateral: CTA - Cardiovascular Rhythm: regular Heart sounds: normal: S1, S2 leg Peripheral Edema: bilateral: Trace - Gastrointestinal left abd difficult to palpate due to pain General gastrointestinal: no absent bowel sounds, no decreased bowel sounds, no distended, no hepatomegaly, no hyperactive bowel sounds, normal bowel sounds, no rigid, no scaphoid, soft, no tenderness, no umbilical hernia, no ventral hernia - Integumentary left lateral chest PleurX drain inserted, area is swollen, warm and tender to touch, small areas of excoriation are noted. - Neurologic speech impediment, stable - Musculoskeletal Musculoskeletal: strength equal bilaterally - Psychiatric Psychiatric: A&O x's 3, appropriate affect, intact judgment & insight Results CBC & Chem 7: 04/17/17 05:22 04/17/17 05:22 Labs: Abnormal Lab Results - Last 24 Hours (Table) 04/16/17 04/16/17 04/17/17 Range/Units 20:07 22:57 00:45 WBC (3.8-10.6) k/uL RBC (3.80-5.40) m/uL Hgb (11.4-16.0) gm/dL Hct (34.0-46.0) % RDW (11.5-15.5) % Plt Count (150-450) k/uL Potassium (3.5-5.1) mmol/L Carbon Dioxide (22-30) mmol/L BUN (7-17) mg/dL Creatinine (0.52-1.04) mg/dL Glucose (74-99) mg/dL POC Glucose (mg/dL) (75-99) mg/dL Calcium (8.4-10.2) mg/dL Total Creatine Kinase 213 H 507 H (30-135) U/L CK-MB (CK-2) 4.0 H* 10.8 H* (0.0-2.4) ng/mL Troponin I 0.227 H* 0.191 H* (0.000-0.034) ng/mL Triglycerides (<150) mg/dL HDL Cholesterol (40-60) mg/dL Urine Appearance Cloudy H (Clear) Urine Protein 1+ H (Negative) Urine Ketones 1+ H (Negative) Urine Blood Moderate H (Negative) Ur Leukocyte Esterase Trace H (Negative) Urine WBC 19 H (0-5) /hpf Urine Bacteria Occasional H (None) /hpf Urine Mucus Rare H (None) /hpf 04/17/17 04/17/17 04/17/17 Range/Units 05:22 05:22 15:05 WBC 0.7 L* (3.8-10.6) k/uL RBC 3.15 L (3.80-5.40) m/uL Hgb 8.8 L (11.4-16.0) gm/dL Hct 27.3 L (34.0-46.0) % RDW 18.9 H (11.5-15.5) % Plt Count 130 L (150-450) k/uL Potassium 3.2 L (3.5-5.1) mmol/L Carbon Dioxide 21 L (22-30) mmol/L BUN 54 H (7-17) mg/dL Creatinine 1.68 H (0.52-1.04) mg/dL Glucose 108 H (74-99) mg/dL POC Glucose (mg/dL) 107 H (75-99) mg/dL Calcium 6.2 L* (8.4-10.2) mg/dL Total Creatine Kinase (30-135) U/L CK-MB (CK-2) (0.0-2.4) ng/mL Troponin I (0.000-0.034) ng/mL Triglycerides 192 H (<150) mg/dL HDL Cholesterol 12 L (40-60) mg/dL Urine Appearance (Clear) Urine Protein (Negative) Urine Ketones (Negative) Urine Blood (Negative) Ur Leukocyte Esterase (Negative) Urine WBC (0-5) /hpf Urine Bacteria (None) /hpf Urine Mucus (None) /hpf Microbiology - Last 24 Hours (Table) 04/16/17 13:18 Blood Culture - Preliminary Blood No Growth after 24 hours 04/16/17 13:18 Blood Culture Gram Stain - Preliminary Blood Comments: all consults reviewed Chest x-ray: report reviewed Assessment and Plan (1) Mesothelioma Narrative/Plan: Pt is s/p 3/4 cycles of cisplatin and alimta for mesothelioma. She received her last treatment 04/11 and neulasta on 04/12. Pt was due for PET restaging this weekend but this will be cancelled and rescheduled. Status: Chronic (2) Pancytopenia due to antineoplastic chemotherapy Narrative/Plan: Pt received GCSF on 04/12, no other support at this time, cultures pending, abx ordered, T max 100.1F. Hgb and platelets require no intervention at this time, CBC daily. Status: Acute (3) Mucositis due to antineoplastic therapy Narrative/Plan: Diet was changed to full liquid with supplements. Cools solution ordered. Anticipate that this will improve as pt WBC improves. Status: Acute Plan: Pt did convert to sinus rhythm but, if she were to require anticoagulation she is ok for the same, monitor platelets and recheck INR- it was elevated on admit possibly due to nutritional deficiencies. Need to ensure pt is not autoanticoagulated concurrently. Cardiology following. Thoracic Surgery has evaluated PleurX.
[2017-04-17] MEDS: SODIUM CHLORIDE 0.9% 1,000 ML IV SCH (18:37)
[2017-04-17] MEDS ORDERED: VANCOMYCIN 1,500 MG in SODIUM CHLORIDE 0.9% 250 ML IVPB ONE (20:00)
[2017-04-17 20:12] LABS: Magnesium 1.7 mg/dL (1.6-2.3); Phosphorous 5.4 mg/dL (2.5-4.5)
[2017-04-17] MEDS: ATORVASTATIN 40 MG TAB PO SCH (20:21)
[2017-04-17] MEDS: MAG HYDROX/AL HYDROX/SIMETH 30 ML, LIDOCAINE VISCOUS 30 ML, diphenhydrAMINE ELIXIR 75 M... PO SCH ×8 (20:21→21:09)
[2017-04-17 20:36] LABS: INR 1.5 (<1.1); Prothrombin Time 14.8 sec (9.0-12.0)
--- NOTE | 2017-04-17 20:39 | PN ---
DATE OF SERVICE: 04/17/2017 This 61 -year-old woman who was admitted with multiple medical problems including atrial fibrillation, hypertension, is being closely monitored. The patient also had foul smelling discharge from the chest tube inserted on the left side for drainage of the pleural fluid as well as . The patient is being closely monitored. Dr. Hogan is following the patient closely. The patient continues to be hypertensive at this time. Blood culture preliminary with gram-positive cocci. Past medical history reviewed. REVIEW OF SYSTEMS: CARDIOVASCULAR: As mentioned earlier. GASTROINTESTINAL: No nausea or vomiting. GENITOURINARY: No dysuria. Current medications are: 1. Sterling 5 mg. 2. Xanax 0.25 t.i.d. 3. Amiodarone drip. 4. Aspirin 81 mg daily. 5. Tenormin 25 mg. 6. Lipitor 40 mg. 7. Calcium gluconate b.i.d. 8. Dilaudid 0.5 q.6 p.r.n. 9. Levaquin 250 mg daily. 10. Nitrostat. 11. Protonix. 12. Zosyn IV. 13. Restoril. 14. Ultram. 15. Vancomycin. LABS: WBC 0.7, hemoglobin 8.8, platelets 130, calcium 6.2. ASSESSMENT: 1. Atrial fibrillation with fast ventricular rate present on admission. 2. Possible acute empyema on the left side with severe sepsis and septic shock. 3. Hypotension, possibly multifactorial secondary septic shock and as well as cardiogenic shock. 4. Left-sided mesothelioma with pleural effusions as well as chest tube drainage and thoracocentesis. 5. Ditropan 0.32 indicating acute non-ST segment elevation myocardial infarction, present on admission. 6. Leukopenia and anemia, pancytopenia possibly secondary to malignancy. 7. Increased creatinine with acute renal failure, possibly prerenal factors, acute tubular necrosis. 8. Hypomagnesemia. 9. Hypocalcemia. 10. Hypoalbuminemia with mild to moderate protein calorie malnutrition. 11. Obesity, body mass index of 39. 12. History of asthma. 13. History of coronary artery disease. 14. History hypertension, essential. 15. Hyperlipidemia. 16. History of degenerative joint disease. 17. History of pneumonia. 18. History of morbid obesity. 19. History of bronchial asthma. 20. History of uterine cancer. 21. History of cataracts. 22. History of peripheral neuropathy. 23. History of migraines. 24. History of recurrent urinary tract infection. 25. History of gout. 26. History of mentally challenged. 27. History of hysterectomy. 28. History of claustrophobia. 29. Remote history of nicotine dependence. 30. FULL CODE. RECOMMENDATIONS AND DISCUSSION: Recommend to continue current medications, continue with monitoring and symptomatic treatment. Otherwise, continue with we will initiate empiric antibiotics. The patient is definitely has hematological issues as well. I would recommend to follow the patient closely with Dr. Lin and Dr. Hogan. Infectious disease has been also consulted. Prognosis guarded because of multiple complex medical issues. Further recommendations to follow. We will monitor pressor support and IV fluid boluses. Guarded prognosis. Further recommendations to follow. MTDD
[2017-04-17 22:49] LABS: Partial Thromboplastin Time 25.5 sec (22.0-30.0); Prothrombin Time 18.9 sec (9.0-12.0)
[2017-04-17 23:11] LABS: Potassium 3.2 mmol/L (3.5-5.1)
[2017-04-18] MEDS: PIPERACILLIN-TAZOBACTAM 3.375 GM in DEXTROSE/WATER 1 50ML.BAG IVPB SCH ×4 (00:32→23:55)
[2017-04-18] MEDS: HEPARIN SODIUM,PORCINE/D5W PMX 25,000 UNIT in DEXTROSE/WATER 1 500ML.BAG IV SCH (00:32)
[2017-04-18] MEDS: HYDROcodone/APAP 5-325MG 1 EACH TAB PO PRN ×2 (00:43→15:29)
[2017-04-18] MEDS: POTASSIUM CHLORIDE ER 20 MEQ TAB.ER PO SCH ×2 (00:44→01:22)
[2017-04-18 04:54] LABS: Anisocytosis Slight; Aty Lym Flag Marked; CH 27.4; CHCM 31.5; HCT 25.8 % (34.0-46.0); HDW 2.43; HGB 8.2 gm/dL (11.4-16.0); Immature Gran Flag Slight; MCH 27.9 pg (25.0-35.0); MCHC 31.9 g/dL (31.0-37.0); MCV 87.6 fL (80.0-100.0); RBC 2.94 m/uL (3.80-5.40); RDW 19.2 % (11.5-15.5); WBC (Perox) 0.33
[2017-04-18 04:59] LABS: WBC 0.3 k/uL (3.8-10.6)
[2017-04-18 05:03] LABS: Magnesium 1.7 mg/dL (1.6-2.3); Phosphorous 3.7 mg/dL (2.5-4.5); Potassium 3.7 mmol/L (3.5-5.1)
[2017-04-18 05:08] LABS: Calcium 6.4 mg/dL (8.4-10.2)
[2017-04-18 05:10] LABS: INR 2.1 (<1.1); Partial Thromboplastin Time 27.1 sec (22.0-30.0)
[2017-04-18 05:34] LABS: Add Differential Manual Differential
[2017-04-18 05:37] LABS: Manual Review Performed
[2017-04-18] MEDS ORDERED: VANCOMYCIN 1,500 MG in SODIUM CHLORIDE 0.9% 250 ML IVPB SCH (06:00)
[2017-04-18] MEDS ORDERED: POTASSIUM CHLORIDE ER 20 MEQ TAB.ER PO SCH (07:00)
[2017-04-18] MEDS: AMIODARONE 450 MG in DEXTROSE 5% IN WATER 250 ML IV SCH ×4 (08:46→13:37)
[2017-04-18] MEDS: ASPIRIN 81 MG CHEW PO SCH (08:47)
[2017-04-18] MEDS: MAGNESIUM SULFATE-D5W PMX 1 GM in DEXTROSE/WATER 1 100ML.BAG IVPB SCH ×3 (08:47→11:53)
[2017-04-18] MEDS: PANTOPRAZOLE 40 MG TABLET PO SCH (08:47)
[2017-04-18] MEDS: ATENOLOL 25 MG TAB PO SCH (08:47)
[2017-04-18] MEDS: MAG HYDROX/AL HYDROX/SIMETH 30 ML, LIDOCAINE VISCOUS 30 ML, diphenhydrAMINE ELIXIR 75 M... PO SCH ×16 (08:48→20:55)
--- NOTE | 2017-04-18 10:52 | P.PN ---
Subjective Principal diagnosis: Left-sided pleural effusion, status post Pleurx catheter placement 01/25/2017, need for catheter removal. Patient had Pleurx catheter removed yesterday by Dr. Alvarez. Currently sitting up in bed in no apparent distress. Objective - Vital Signs Vital signs: Vital Signs Temp 99.1 F 04/18/17 08:00 Pulse 72 04/18/17 10:00 Resp 24 04/18/17 10:00 BP 83/45 04/18/17 10:00 Pulse Ox 98 04/18/17 10:00 Intake & Output 04/17/17 04/18/17 04/18/17 18:59 06:59 18:59 Intake Total 2220.667 1701.921 984.852 Output Total 435 740 195 Balance 1785.667 961.921 789.852 Weight 102.965 kg 98 kg Intake: IV 1216.9 261.7 Amiodarone 450 mg In 116.9 16.7 Dextrose 5% in Water 250 ml @ 1 MG/MIN 34.53 mls/ hr IV .Q7H31M [facility] Rx#: [id number] Piperacillin-Tazobactam 3 50.0 .375 gm In Dextrose/Water 1 50ml.bag @ 12.5 mls/hr IVPB Q8HR [facility] Rx#: [id number] Sodium Chloride 0.9% 1, 1050 245 000 ml @ 20 mls/hr IV . Q24H [facility] Rx#:[id number] Intake, IV Titration 2020.667 285.021 723.152 Amount Amiodarone 450 mg In 225.021 183.819 Dextrose 5% in Water 250 ml @ 1 MG/MIN 34.53 mls/ hr IV .Q7H31M [facility] Rx#: [id number] Dextrose 5% in Water 100 100 ml @ 618 mls/hr IV .Q11M ONE with Amiodarone 300 mg Rx#:[id number] Diltiazem 125 mg In 110.667 Sodium Chloride 0.9% 100 ml @ 5 MG/HR 5 mls/hr IV .Q24H ONE Rx#:[id number] Heparin Sodium,Porcine/ 500 189.333 D5w Pmx 25,000 unit In Dextrose/Water 1 500ml. bag @ 9.713 UNITS/KG/HR 20 mls/hr IV .Q24H [facility] Rx #:[id number] Magnesium Sulfate-D5w Pmx 200 1 gm In Dextrose/Water 1 100ml.bag @ 100 mls/hr IVPB Q1H [facility] Rx#: [id number] Magnesium Sulfate-D5w Pmx 100 1 gm In Dextrose/Water 1 100ml.bag @ 100 mls/hr IVPB Q1H [facility] Rx#: [id number] Piperacillin-Tazobactam 3 50 .375 gm In Dextrose/Water 1 50ml.bag @ 12.5 mls/hr IVPB Q8HR [facility] Rx#: [id number] Sodium Chloride 0.9% 1, 60 60 000 ml @ 20 mls/hr IV . Q24H [facility] Rx#:[id number] Sodium Chloride 0.9% 500 1000 ml @ 999 mls/hr IV .Q31M [facility] Rx#:[id number] Vancomycin 1,500 mg In 250 Sodium Chloride 0.9% 250 ml @ 125 mls/hr IVPB Q36H [facility] Rx#:[id number] Oral 200 200 Output: Urine 435 740 195 Other: Voiding Method Indwelling Catheter Indwelling Catheter Indwelling Catheter - Constitutional General appearance: Present: cooperative, no acute distress, obese (Lungs sounds diminished bilaterally. Respirations even, nonlabored. Currently on 2 L nasal cannula with oxygen saturation 99%) - Respiratory Details: Lungs sounds diminished bilaterally. Respirations even, nonlabored. Currently on 2 L nasal cannula with oxygen saturation 99% - Cardiovascular Details: S1, S2 present. Regular rate and rhythm, normal sinus rhythm on telemetry. Remains on amiodarone drip and heparin drip. - Gastrointestinal Gastrointestinal Comment(s): Abdomen soft, nontender, nondistended. Active bowel sounds 4 quadrants. Tolerating diet. - Genitourinary Genitourinary Comment(s): Sepulveda present draining clear, yellow urine. - Integumentary Integumentary Comment(s): Left pleurx catheter site covered with dressing, positive drainage. - Musculoskeletal Musculoskeletal: Present: strength equal bilaterally - Psychiatric Psychiatric: Present: A&O x's 3, appropriate affect, intact judgment & insight - Allied health notes Allied health notes reviewed: nursing - Labs CBC & Chem 7: 04/18/17 04:18 04/18/17 04:18 Labs: Abnormal Lab Results - Last 24 Hours (Table) 04/17/17 04/17/17 04/17/17 Range/Units 05:22 05:22 15:05 WBC (3.8-10.6) k/uL RBC (3.80-5.40) m/uL Hgb (11.4-16.0) gm/dL Hct (34.0-46.0) % RDW (11.5-15.5) % Plt Count (150-450) k/uL PT 14.8 H (9.0-12.0) sec Potassium (3.5-5.1) mmol/L Chloride (98-107) mmol/L Carbon Dioxide (22-30) mmol/L BUN (7-17) mg/dL Creatinine (0.52-1.04) mg/dL Glucose (74-99) mg/dL POC Glucose (mg/dL) 107 H (75-99) mg/dL Calcium (8.4-10.2) mg/dL Phosphorus 5.4 H (2.5-4.5) mg/dL 04/17/17 04/17/17 04/18/17 Range/Units 22:30 22:30 04:18 WBC 0.3 L* (3.8-10.6) k/uL RBC 2.94 L (3.80-5.40) m/uL Hgb 8.2 L (11.4-16.0) gm/dL Hct 25.8 L (34.0-46.0) % RDW 19.2 H (11.5-15.5) % Plt Count 102 L (150-450) k/uL PT 18.9 H (9.0-12.0) sec Potassium 3.2 L (3.5-5.1) mmol/L Chloride (98-107) mmol/L Carbon Dioxide (22-30) mmol/L BUN (7-17) mg/dL Creatinine (0.52-1.04) mg/dL Glucose (74-99) mg/dL POC Glucose (mg/dL) (75-99) mg/dL Calcium (8.4-10.2) mg/dL Phosphorus (2.5-4.5) mg/dL 04/18/17 04/18/17 Range/Units 04:18 04:18 WBC (3.8-10.6) k/uL RBC (3.80-5.40) m/uL Hgb (11.4-16.0) gm/dL Hct (34.0-46.0) % RDW (11.5-15.5) % Plt Count (150-450) k/uL PT 20.0 H (9.0-12.0) sec Potassium (3.5-5.1) mmol/L Chloride 109 H (98-107) mmol/L Carbon Dioxide 21 L (22-30) mmol/L BUN 45 H (7-17) mg/dL Creatinine 1.29 H (0.52-1.04) mg/dL Glucose 104 H (74-99) mg/dL POC Glucose (mg/dL) (75-99) mg/dL Calcium 6.4 L* (8.4-10.2) mg/dL Phosphorus (2.5-4.5) mg/dL Microbiology - Last 24 Hours (Table) 04/17/17 14:24 Gram Stain - Preliminary Catheter Site Wound Culture - Preliminary 04/17/17 14:40 Anaerobic Culture - Preliminary Catheter Site 04/17/17 15:40 Urine Culture - Preliminary Urine,Catheterized 04/16/17 13:18 Blood Culture Gram Stain - Preliminary Blood Blood Culture - Preliminary Coagulase Negative Staph 04/16/17 13:18 Blood Culture - Preliminary Blood No Growth after 24 hours Assessment and Plan (1) Mesothelioma Status: Chronic (2) Rapid atrial fibrillation Status: Acute (3) Pleural effusion Status: Acute Plan: The patient was seen and examined. Chart/diagnostics were reviewed. Patient is currently in no distress. Pleurx catheter was removed yesterday. No further cardiothoracic surgical intervention at this time. We will see patient as needed.
--- NOTE | 2017-04-18 11:24 | P.PN ---
Subjective Principal diagnosis: Atrial fibrillation with RVR This is a 61-year-old female, familiar to my service, patient is known to have history of mesothelioma affecting the left lung, this was diagnosed in the last a few months by Dr. Hernández who performed thoracoscopic lung evaluation, decortication, and Pleurx catheter placement. Pathology report from her pleural tissue came back positive for mesothelioma. Surprisingly the patient has done better than expected and she has been receiving chemotherapy for her mesothelioma from oncology. Patient was actually seen recently seen in my office, and she was doing quite well relatively asymptomatic, and her chest x- ray was relatively reassuring. On 04/16/2017, patient presented to the ER complaining of feeling extremely dizzy, heart racing and felt like she was going to pass out. Prior to this she was at the oncologist's office, and the patient was advised to go to the ER because of her symptoms and apparently upon presentation she was noted to be hypotensive requiring levo fed and she was also placed on Cardizem drip for her atrial fibrillation and RVR. Today the patient is back in sinus rhythm. She remains on Cardizem at 5 mg per hour. Seen already by cardiology, and I will go ahead and make recommendation for the patient to be seen by thoracic surgery on consultation since she has been complaining of the fact that the Pleurx catheter is not functioning. This will be addressed by thoracic surgery on the case. Today the patient is off norepinephrine, she remains on Cardizem, and she seems to be doing quite well considering her presentation. Patient was reevaluated today on 04/18/2017, she had to be transferred shortly after I saw her yesterday to the intensive care unit because of going back to A. fib with RVR and she was hypotensive. Patient was seen by cardiology, and now she is on multiple medications including amiodarone to control her heart rate. Early this morning the patient converted to a normal sinus rhythm. She is hemodynamically stable. Her Pleurx catheter was removed and there was significant purulent drainage from the site of placement of the Pleurx catheter , hence the possibility of sepsis is being entertained, and the patient is now on broad-spectrum antibiotics. Today she seems to be doing well, she is in no distress, she is hemodynamically stable. However she has bicytopenia with low WBC count of 0.3 and hemoglobin of 8.2. Patient has what seems to be a picture of neutropenic sepsis and broad-spectrum antibiotics were added. Zosyn and Levaquin were initiated yesterday. And vancomycin was also started. Cultures are pending. Coagulase negative staph was noted in the blood, but that seems to be most likely contamination. Objective - Vital Signs Vital signs: Vital Signs Temp 99.1 F 04/18/17 08:00 Pulse 72 04/18/17 10:00 Resp 24 04/18/17 10:00 BP 83/45 04/18/17 10:00 Pulse Ox 98 04/18/17 10:00 Intake & Output 04/17/17 04/18/17 04/18/17 18:59 06:59 18:59 Intake Total 2220.667 1701.921 984.852 Output Total 435 740 195 Balance 1785.667 961.921 789.852 Weight 102.965 kg 98 kg Intake: IV 1216.9 261.7 Amiodarone 450 mg In 116.9 16.7 Dextrose 5% in Water 250 ml @ 1 MG/MIN 34.53 mls/ hr IV .Q7H31M [facility] Rx#: [id number] Piperacillin-Tazobactam 3 50.0 .375 gm In Dextrose/Water 1 50ml.bag @ 12.5 mls/hr IVPB Q8HR [facility] Rx#: [id number] Sodium Chloride 0.9% 1, 1050 245 000 ml @ 20 mls/hr IV . Q24H [facility] Rx#:[id number] Intake, IV Titration 2020.667 285.021 723.152 Amount Amiodarone 450 mg In 225.021 183.819 Dextrose 5% in Water 250 ml @ 1 MG/MIN 34.53 mls/ hr IV .Q7H31M [facility] Rx#: [id number] Dextrose 5% in Water 100 100 ml @ 618 mls/hr IV .Q11M [facility] with Amiodarone 300 mg Rx#:[id number] Diltiazem 125 mg In 110.667 Sodium Chloride 0.9% 100 ml @ 5 MG/HR 5 mls/hr IV .Q24H [facility] Rx#:[id number] Heparin Sodium,Porcine/ 500 189.333 D5w Pmx 25,000 unit In Dextrose/Water 1 500ml. bag @ 9.713 UNITS/KG/HR 20 mls/hr IV .Q24H [facility] Rx #:[id number] Magnesium Sulfate-D5w Pmx 200 1 gm In Dextrose/Water 1 100ml.bag @ 100 mls/hr IVPB Q1H [facility] Rx#: [id number] Magnesium Sulfate-D5w Pmx 100 1 gm In Dextrose/Water 1 100ml.bag @ 100 mls/hr IVPB Q1H [facility] Rx#: [id number] Piperacillin-Tazobactam 3 50 .375 gm In Dextrose/Water 1 50ml.bag @ 12.5 mls/hr IVPB Q8HR [facility] Rx#: [id number] Sodium Chloride 0.9% 1, 60 60 000 ml @ 20 mls/hr IV . Q24H [facility] Rx#:[id number] Sodium Chloride 0.9% 500 1000 ml @ 999 mls/hr IV .Q31M [facility] Rx#:[id number] Vancomycin 1,500 mg In 250 Sodium Chloride 0.9% 250 ml @ 125 mls/hr IVPB Q36H [facility] Rx#:[id number] Oral 200 200 Output: Urine 435 740 195 Other: Voiding Method Indwelling Catheter Indwelling Catheter Indwelling Catheter - Exam Physical Exam: Revealed a 61-year-old female in no form of respiratory distress. HEENT:[Neck is supple.] [No neck masses.] [No thyromegaly.] [No JVD.] Chest: [Diminished breath sounds at the left base., no crackles, no rhonchi, no wheezes.] Cardiac Exam: [Normal S1 and S2, no S3 gallop, no murmur.] Abdomen: [Soft, nontender, no megaly, no rebound, no guarding, normal bowel sounds.] Extremities: [No clubbing, no edema, no cyanosis.] Neurological Exam: [No focal neurologic deficit.] - Labs CBC & Chem 7: 04/18/17 04:18 04/18/17 04:18 Labs: Abnormal Lab Results - Last 24 Hours (Table) 04/17/17 04/17/17 04/17/17 Range/Units 05:22 05:22 15:05 WBC (3.8-10.6) k/uL RBC (3.80-5.40) m/uL Hgb (11.4-16.0) gm/dL Hct (34.0-46.0) % RDW (11.5-15.5) % Plt Count (150-450) k/uL PT 14.8 H (9.0-12.0) sec Potassium (3.5-5.1) mmol/L Chloride (98-107) mmol/L Carbon Dioxide (22-30) mmol/L BUN (7-17) mg/dL Creatinine (0.52-1.04) mg/dL Glucose (74-99) mg/dL POC Glucose (mg/dL) 107 H (75-99) mg/dL Calcium (8.4-10.2) mg/dL Phosphorus 5.4 H (2.5-4.5) mg/dL 04/17/17 04/17/17 04/18/17 Range/Units 22:30 22:30 04:18 WBC 0.3 L* (3.8-10.6) k/uL RBC 2.94 L (3.80-5.40) m/uL Hgb 8.2 L (11.4-16.0) gm/dL Hct 25.8 L (34.0-46.0) % RDW 19.2 H (11.5-15.5) % Plt Count 102 L (150-450) k/uL PT 18.9 H (9.0-12.0) sec Potassium 3.2 L (3.5-5.1) mmol/L Chloride (98-107) mmol/L Carbon Dioxide (22-30) mmol/L BUN (7-17) mg/dL Creatinine (0.52-1.04) mg/dL Glucose (74-99) mg/dL POC Glucose (mg/dL) (75-99) mg/dL Calcium (8.4-10.2) mg/dL Phosphorus (2.5-4.5) mg/dL 04/18/17 04/18/17 Range/Units 04:18 04:18 WBC (3.8-10.6) k/uL RBC (3.80-5.40) m/uL Hgb (11.4-16.0) gm/dL Hct (34.0-46.0) % RDW (11.5-15.5) % Plt Count (150-450) k/uL PT 20.0 H (9.0-12.0) sec Potassium (3.5-5.1) mmol/L Chloride 109 H (98-107) mmol/L Carbon Dioxide 21 L (22-30) mmol/L BUN 45 H (7-17) mg/dL Creatinine 1.29 H (0.52-1.04) mg/dL Glucose 104 H (74-99) mg/dL POC Glucose (mg/dL) (75-99) mg/dL Calcium 6.4 L* (8.4-10.2) mg/dL Phosphorus (2.5-4.5) mg/dL Microbiology - Last 24 Hours (Table) 04/17/17 14:24 Gram Stain - Preliminary Catheter Site Wound Culture - Preliminary 04/17/17 14:40 Anaerobic Culture - Preliminary Catheter Site 04/17/17 15:40 Urine Culture - Preliminary Urine,Catheterized 04/16/17 13:18 Blood Culture Gram Stain - Preliminary Blood Blood Culture - Preliminary Coagulase Negative Staph 04/16/17 13:18 Blood Culture - Preliminary Blood No Growth after 24 hours Assessment and Plan Plan: Impression: 1 acute atrial fibrillation with RVR, converted to normal sinus rhythm with Cardizem drip. 2 left-sided mesothelioma and pleural effusion, previous decortication and Pleurx catheter placement. The Pleurx catheter was removed yesterday by thoracic surgery. 3 leukopenia and anemia secondary to chemotherapy given for her mesothelioma. Possible neutropenic sepsis is in the differential. 4 hypotension on presentation secondary to atrial fibrillation with RVR. Again the possibility of sepsis is not entirely ruled out. 5 suspect acute kidney injury, secondary to hypotension and acute tubular necrosis. Kidney functioning is improving today creatinine was 1.68 and it is 1.29 today. 6 history of underlying coronary artery disease 7 history of bronchial asthma 8 history of multiple comorbidities including hyperlipidemia, uterine cancer, peripheral neuropathy, gout, mentally challenged, and history of claustrophobia. Recommendation: Agree with present treatment plan, continue broad-spectrum antibiotics including Zosyn and vancomycin and Levaquin empirically, continue antiarrhythmic agents including amiodarone, and beta blockers, patient will be monitored again for the next 24 hours in the ICU, and we'll likely arrange for transfer out of the ICU in the next 24 hours. Critical care time is 32 minutes. Time with Patient: Greater than 30
[2017-04-18] MEDS: CALCIUM GLUCONATE 1,000 MG in SODIUM CHLORIDE 0.9% 100 ML IVPB SCH ×2 (11:52→20:55)
[2017-04-18 12:05] LABS: Glucose,Whole Blood 124 mg/dL (75-99)
[2017-04-18] MEDS ORDERED: LEVOFLOXACIN 250 MG TAB PO SCH (14:00)
[2017-04-18] MEDS ORDERED: HEPARIN SODIUM,PORCINE 5,000 UNIT/ML 1 ML VIAL ONE (15:50)
[2017-04-18] MEDS ORDERED: HEPARIN SODIUM,PORCINE 5,000 UNIT/ML 1 ML VIAL IV PRN (15:52)
[2017-04-18] MEDS ORDERED: PHYTONADIONE 5 MG in SODIUM CHLORIDE 0.9% 50 ML IVPB STA (16:17)
[2017-04-18 16:32] LABS: INR 2.1 (<1.1); Prothrombin Time 20.7 sec (9.0-12.0)
[2017-04-18] MEDS: SODIUM CHLORIDE 0.9% 1,000 ML IV SCH (17:54)
--- NOTE | 2017-04-18 18:08 | PN ---
DATE OF SERVICE: 04/18/2017 This 61-year-old woman who was admitted with multiple medical problems, had possibly severe sepsis and septic shock also. The patient had recurrent hypotension. The patient also had atrial fibrillation with a fast ventricular rate. Cardiogenic shock also suspected. Pressor support and IV fluids. The patient improved significantly. Please also note, the patient also has significantly purulent drainage from the left pleural drainage area also. The patient also had history of mesothelioma. Dr. Hogan and cardiothoracic surgery and hematology/oncology following the patient closely in ICU at this time. The patient also has severe hypocalcemia. PAST MEDICAL HISTORY: Reviewed. REVIEW OF SYSTEMS: CARDIOVASCULAR: As mentioned earlier. RESPIRATORY: As mentioned earlier. GASTROINTESTINAL: As mentioned earlier. : No dysuria. Nervous system: No numbness or weakness. Current medications are reviewed and include: 1. [place] 5 q6h p.r.n. 2. Xanax 0.5 t.i.d. 3. Aspirin 81 mg. 4. Tenormin 25 mg. 5. Lipitor 40 mg q.h.s. 6. Calcium 1gm b.i.d. 7. Heparin. 8. Dilaudid p.r.n. 9. Levaquin 250. 10. Nitrostat. 11. Protonix. 12. Zosyn 3.375. 13. Ultram. 14. Vancomycin IV. PHYSICAL EXAMINATION: The patient is alert and oriented x3. Pulse 77, blood pressure 117/58, respiratory rate 20,temperature 99 degrees, pulse ox 100% on room air. HEENT: Conjunctivae normal. Oral mucosa moist. NECK: Obese. No jugular venous distention. No carotid bruit. CARDIOVASCULAR: S1, S2 regular, ejection systolic murmur. RESPIRATORY: Breath sounds diminished at the bases, bilateral scattered rhonchi and crackles, expiratory wheezing also present. ABDOMEN: Soft, nontender. No mass palpable. LEGS: No edema. No swelling. Nervous system: Higher functions as mentioned. Moves all four limbs. No focal deficits. LYMPHATICS: No lymph nodes palpable in the neck, axillae or groin. SKIN: No ulcer, rash or bleeding. LABS: WBC 0.3, hemoglobin is 8.2, calcium 6.4. The chest x-ray shows reviewed personally by me showed cardiomegaly and significant lesions on left side of the chest. ASSESSMENT: 1. Atrial fibrillation with fast ventricular rate, present on admission. 2. Possible empyema on the left side with severe sepsis and septic shock. 3. Coagulase-negative Staph from the blood. 4. Hypertension, possibly multifactorial secondary to septic shock as well as cardiogenic shock. 5. Left sided mesothelioma with pleural effusion as well as chest tube drainage and thoracocentesis. 6. Troponin 0.32 indicating acute non-ST elevation myocardial infarction present on admission. 7. Leukopenia and anemia, pancytopenia possibly secondary to malignancy. 8. Severe leukopenia and neutropenia. 9. Increased creatinine with acute renal failure possible prerenal factors with acute tubular necrosis. 10. Hypomagnesium. 11. Hypocalcemia severe. 12. Hypoalbuminemia with mild to moderate protein calorie malnutrition. 13. Obesity with body mass index of 39. 14. History of asthma. 15. History of coronary artery disease. 16. History of hypertension, essential. 17. Hyperlipidemia. 18. History of degenerative joint disease. 19. History of pneumonia. 20. History of morbid obesity. 21. History of bronchial asthma. 22. History of uterine cancer. 23. History of cataracts. 24. History of peripheral neuropathy. 25. History of migraines. 26. History of recurrent urinary tract infection. 27. History of gout. 28. History of mentally challenged. 29. History of hysterectomy. 30. History of claustrophobia. 31. Remote history of nicotine dependence. 32. FULL CODE. RECOMMENDATIONS AND DISCUSSION: Recommend continue current medications, continue with monitoring, symptomatic treatment. Otherwise, at this time, I recommend continue IV antibiotics and blood pressures significantly improved. Creatinine is also improving. Continue with IV hydration as well as monitor closely with cardiology and hematology/oncology and pulmonology. Chest x-ray reviewed as mentioned earlier. I would also repeat blood cultures today and continue to monitor. Once again prognosis guarded. Further recommendations to follow. MTDD
[2017-04-18] MEDS: ATORVASTATIN 40 MG TAB PO SCH (20:55)
--- NOTE | 2017-04-19 00:18 | P.PN ---
Subjective The pt is still weak, though she feels better. She is c/o sore throat and some trouble swallowing as a result. Objective - Vital Signs Vital signs: Vital Signs Temp 98.2 F 04/18/17 20:00 Pulse 75 04/18/17 23:00 Resp 18 04/18/17 23:00 BP 111/51 04/18/17 23:00 Pulse Ox 100 04/18/17 23:00 Intake & Output 04/18/17 04/18/17 04/19/17 06:59 18:59 06:59 Intake Total 7908.165 8921.412 170 Output Total 740 625 465 Balance 961.921 957.412 -295 Weight 98 kg Intake: IV 1216.9 521.7 170 Amiodarone 450 mg In 116.9 16.7 Dextrose 5% in Water 250 ml @ 1 MG/MIN 34.53 mls/ hr IV .Q7H31M [facility] Rx#: [id number] Piperacillin-Tazobactam 3 50.0 100 50 .375 gm In Dextrose/Water 1 50ml.bag @ 12.5 mls/hr IVPB Q8HR [facility] Rx#: [id number] Sodium Chloride 0.9% 1, 1050 405 120 000 ml @ 20 mls/hr IV . Q24H [facility] Rx#:[id number] Intake, IV Titration 766.406 4763.712 Amount Amiodarone 450 mg In 225.021 267.530 Dextrose 5% in Water 250 ml @ 1 MG/MIN 34.53 mls/ hr IV .Q7H31M [facility] Rx#: [id number] Calcium Gluconate 1,000 100 mg In Sodium Chloride 0.9 % 100 ml @ 100 mls/hr IVPB BID [facility] Rx#: [id number] Heparin Sodium,Porcine/ 343.182 D5w Pmx 25,000 unit In Dextrose/Water 1 500ml. bag @ 9.713 UNITS/KG/HR 20 mls/hr IV .Q24H [facility] Rx #:[id number] Magnesium Sulfate-D5w Pmx 100 1 gm In Dextrose/Water 1 100ml.bag @ 100 mls/hr IVPB Q1H [facility] Rx#: [id number] Sodium Chloride 0.9% 1, 60 000 ml @ 20 mls/hr IV . Q24H [facility] Rx#:[id number] Vancomycin 1,500 mg In 250 Sodium Chloride 0.9% 250 ml @ 125 mls/hr IVPB Q36H [facility] Rx#:[id number] Oral 200 Output: Urine 740 625 465 Other: Voiding Method Indwelling Catheter Indwelling Catheter Indwelling Catheter - Constitutional General appearance: Present: no acute distress - EENT Eyes: Present: PERRLA ENT: Present: thrush - Respiratory Respiratory: left: diminished - Cardiovascular Rhythm: regular Heart sounds: normal: S1, S2 - Gastrointestinal General gastrointestinal: Present: normal bowel sounds, soft - Integumentary Integumentary Comment(s): erythema and swelling at site of Pleurx catheter insertion - Neurologic Neurologic: Present: CNII-XII intact - Musculoskeletal Musculoskeletal: Present: generalized weakness, strength equal bilaterally - Psychiatric Psychiatric: Present: A&O x's 3 - Labs CBC & Chem 7: 04/18/17 04:18 04/18/17 04:18 Labs: Abnormal Lab Results - Last 24 Hours (Table) 04/18/17 04/18/17 04/18/17 Range/Units 04:18 04:18 04:18 WBC 0.3 L* (3.8-10.6) k/uL RBC 2.94 L (3.80-5.40) m/uL Hgb 8.2 L (11.4-16.0) gm/dL Hct 25.8 L (34.0-46.0) % RDW 19.2 H (11.5-15.5) % Plt Count 102 L (150-450) k/uL PT 20.0 H (9.0-12.0) sec Chloride 109 H (98-107) mmol/L Carbon Dioxide 21 L (22-30) mmol/L BUN 45 H (7-17) mg/dL Creatinine 1.29 H (0.52-1.04) mg/dL Glucose 104 H (74-99) mg/dL POC Glucose (mg/dL) (75-99) mg/dL Calcium 6.4 L* (8.4-10.2) mg/dL 04/18/17 04/18/17 Range/Units 12:02 14:46 WBC (3.8-10.6) k/uL RBC (3.80-5.40) m/uL Hgb (11.4-16.0) gm/dL Hct (34.0-46.0) % RDW (11.5-15.5) % Plt Count (150-450) k/uL PT 20.7 H (9.0-12.0) sec Chloride (98-107) mmol/L Carbon Dioxide (22-30) mmol/L BUN (7-17) mg/dL Creatinine (0.52-1.04) mg/dL Glucose (74-99) mg/dL POC Glucose (mg/dL) 124 H (75-99) mg/dL Calcium (8.4-10.2) mg/dL Microbiology - Last 24 Hours (Table) 04/16/17 13:18 Blood Culture Gram Stain - Final Blood Blood Culture - Final Staphylococcus epidermidis 04/17/17 15:40 Urine Culture - Final Urine,Catheterized 04/17/17 14:24 Gram Stain - Preliminary Catheter Site Wound Culture - Preliminary Presumptive MRSA 04/16/17 13:18 Blood Culture - Preliminary Blood No Growth after 48 hours 04/17/17 14:40 Anaerobic Culture - Preliminary Catheter Site Assessment and Plan (1) Neutropenic sepsis Narrative/Plan: The pt's hemodynamics are improved . She has not had an overt fever. The source is likely the chest wall infection. Continue antibiotics. Catheter has been removed and the purulent collection drained. She has already received Neulasta. If WBC has not recoverd by 04/21/17, daily filgrastim will be started. Status: Acute (2) Pancytopenia due to antineoplastic chemotherapy Narrative/Plan: Hgb and plt are in a safe range. Continue to monitor, and transfuse as needed Status: Acute (3) Coagulopathy Narrative/Plan: This is likely due to acquired vit K deficiency, related to sepsis, antibiotics, and decreased PO intake. IV vitamin K will be asministered, Continue to monitor Status: Acute
[2017-04-19] MEDS: DILTIAZEM 125 MG in SODIUM CHLORIDE 0.9% 100 ML IV SCH ×2 (04:34→10:25)
[2017-04-19 05:11] LABS: Anisocytosis Slight; Aty Lym Flag Marked; HCT 25.1 % (34.0-46.0); HDW 2.61; HGB 8.6 gm/dL (11.4-16.0); MCH 28.2 pg (25.0-35.0); MCHC 34.1 g/dL (31.0-37.0); MCV 82.8 fL (80.0-100.0); Mean Platelet Volume 8.8; RBC 3.04 m/uL (3.80-5.40); RDW 19.5 % (11.5-15.5); WBC (Perox) 0.35
[2017-04-19 05:12] LABS: WBC 0.3 k/uL (3.8-10.6)
[2017-04-19 05:26] LABS: Add Differential Manual Differential; Manual Review Performed
[2017-04-19 07:25] LABS: Magnesium 1.9 mg/dL (1.6-2.3); Phosphorous 3.2 mg/dL (2.5-4.5); Potassium 3.1 mmol/L (3.5-5.1)
[2017-04-19] MEDS: PANTOPRAZOLE 40 MG TABLET PO SCH (07:59)
[2017-04-19] MEDS: ATENOLOL 25 MG TAB PO SCH (08:00)
[2017-04-19] MEDS: ASPIRIN 81 MG CHEW PO SCH (08:00)
[2017-04-19] MEDS: CALCIUM GLUCONATE 1,000 MG in SODIUM CHLORIDE 0.9% 100 ML IVPB SCH ×2 (08:00→20:02)
[2017-04-19] MEDS: MAG HYDROX/AL HYDROX/SIMETH 30 ML, LIDOCAINE VISCOUS 30 ML, diphenhydrAMINE ELIXIR 75 M... PO SCH ×16 (08:00→22:00)
[2017-04-19] MEDS ORDERED: POTASSIUM CHLORIDE ER 20 MEQ TAB.ER PO SCH (09:00)
[2017-04-19] MEDS ORDERED: AMIODARONE 200 MG TAB PO SCH (09:00)
--- NOTE | 2017-04-19 09:19 | XR ---
EXAMINATION TYPE: XR chest 1V portable DATE OF EXAM: 04/19/2017 6:28 AM COMPARISON: Prior chest x-ray 16 Apr 2017 HISTORY: Shortness of breath TECHNIQUE: Single frontal view of the chest is obtained. FINDINGS: Interval development of increased attenuation along the superolateral left pleural margin. The heart remains enlarged. Right lung is stable. There are overlying cardiac leads. Superior medias tinum is prominent. IMPRESSION: Findings suggest loculated left pleural effusion, increasing effusions.
[2017-04-19] MEDS: CEFEPIME 2 GM in SODIUM CHLORIDE 0.9% 50 ML IVPB SCH ×2 (09:23→20:02)
[2017-04-19] MEDS: POTASSIUM CHLORIDE 10 MEQ, LIDOCAINE 2% INJ 10 MG in SODIUM CHLORIDE 0.9% 100 ML IV SCH ×2 (09:23→10:29)
--- NOTE | 2017-04-19 10:28 | P.CONS ---
History of Present Illness - Reason for Consult Consult date: 04/19/17 Sepsis - History of Present Illness This is a 61-year-old female who has a significant past history of endometrial cancer in 2009 treated with hysterectomy and BSO. She had a recent hospitalization for every 2016 for recurrent left pleural effusion and underwent thoracentesis which was negative for malignancy she again had a repeat negative thoracentesis. 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 PET scan revealed uptake in the left lower anterior pleural and adjacent left lower lobe. She was started on cisplatin and Alimta and her third cycle was done on April 11 and Neulasta on April 12. Patient was in the oncology office on the day of this admission where she was having shortness of breath and lightheadedness and her heart was racing which she could feel palpitations and she was hypotensive. She was then sent to [facility] emergency center for evaluation. She was found to be in atrial fibrillation with rapid ventricular response she was placed on amiodarone drips which to oral amiodarone as she converted to a normal sinus rhythm. Early this morning, she converted back to atrial fibrillation with rapid ventricular response and is now on Cardizem drip as well as oral amiodarone. She had an initial white count of 1.2 currently at 0.3, hemoglobin 8.6 and platelet count 63. BUN 45 and creatinine 1.29 her INR is elevated at 2.1 thought to be due to sepsis. Troponins were elevated and cardiology has evaluated with no sign of acute coronary syndrome. Her urinalysis was cloudy, blood moderate, leukoesterase trace and white count 19. Patient had a wound culture from the left Pleurx site which is presumptive for MRSA. Blood culture initially obtained on April 16 is positive for Staphylococcus epidermidis. She is currently on IV antibiotics the form of Levaquin, Zosyn and vancomycin. She is also followed by oncology and pulmonary medicine. Dr. Hogan does not appear to suspect pneumonia. Her most recent chest x-ray is showing loculated left pleural effusion, increasing effusions. Patient has also been followed by cardiothoracic surgery and they had removed the Pleurx catheter which was originally placed on January 25. Patient does complain of some shortness of breath with discomfort at the left chest wall and upper abdomen. Patient is noted to have intellectual disability but very pleasant and able to answer simple questions regarding her current situation. Review of Systems All systems: negative Constitutional: Denies chills, Denies fever Eyes: denies blurred vision, denies pain Ears, nose, mouth and throat: Denies headache, Denies sore throat Cardiovascular: Reports chest pain, Reports lightheadedness, Reports rapid heart beat, Reports shortness of breath Respiratory: Reports dyspnea, Denies cough Gastrointestinal: Denies abdominal pain, Denies diarrhea, Denies nausea, Denies vomiting Genitourinary: Denies dysuria, Denies hematuria Musculoskeletal: Denies myalgias Integumentary: Reports wounds, Denies pruritus, Denies rash Neurological: Denies numbness, Denies weakness Psychiatric: Denies anxiety, Denies depression Endocrine: Denies fatigue, Denies weight change Past Medical History Past Medical History: Asthma, Coronary Artery Disease (CAD), Cancer, Eye Disorder, Hyperlipidemia, Hypertension, Osteoarthritis (OA), Pneumonia Additional Past Medical History / Comment(s): Morbid obesity, bronchial asthma, coronary artery disease, hypertension, hyperlipidemia, uterine cancer, osteoarthritis, cataracts, migraines, peripheral neuropathy, episodic urinary tract infections, gout, mentally challenged History of Any Multi-Drug Resistant Organisms: None Reported Past Surgical History: Heart Catheterization, Hysterectomy, Orthopedic Surgery Additional Past Surgical History / Comment(s): Right hand surgery, bilateral bunionectomy, cataract surgery, EGD, colonoscopy, surgery for ingrowing toenails , cardiac catheterization, partial hysterectomy, THORACENTESIS Past Anesthesia/Blood Transfusion Reactions: Motion Sickness Additional Past Anesthesia/Blood Transfusion Reaction / Comm: clausterphobia Past Psychological History: No Psychological Hx Reported Additional Psychological History / Comment(s): per pt's sister diallo,pt is menatally challenged, unable to read or write.lives with [id number] , independant no assistive devices when up Smoking Status: Former smoker Past Alcohol Use History: None Reported Additional Past Alcohol Use History / Comment(s): QUIT SMOKING " A LONG TIME AGO " Past Drug Use History: None Reported - Past Family History Mother Family Medical History: Unable to Obtain Additional Family Medical History / Comment(s): PARKINSONS Father Family Medical History: Unable to Obtain Additional Family Medical History / Comment(s): HEMOCHROMATOSIS Medications and Allergies Home Medications Medication Instructions Recorded Confirmed Type Atenolol [Tenormin] 25 mg PO DAILY 08/02/15 04/16/17 History Atorvastatin [Lipitor] 40 mg PO HS 01/15/17 04/16/17 History Ascorbic Acid [Vitamin C] 500 mg PO DAILY 02/18/17 04/16/17 History Aspirin 81 mg PO DAILY 02/18/17 04/16/17 History Allergies Allergy/AdvReac Type Severity Reaction Status Date / Time adhesive tape Allergy Rash/Hives Verified 04/16/17 13:05 Iodinated Contrast Media - Allergy Anaphylaxis Verified 04/16/17 13:05 Oral and [Iodinated Contrast Media - IV Dye] Penicillins Allergy Rash/Hives Verified 04/16/17 13:05 Physical Exam Vitals: Vital Signs Temp Pulse Resp BP Pulse Ox 04/19/17 07:00 167 H 21 102/64 96 04/19/17 06:00 154 H 23 104/52 97 04/19/17 05:00 155 H 26 H 70/43 96 04/19/17 04:00 159 H 23 80/41 97 04/19/17 03:42 16 04/19/17 03:00 81 16 73/48 97 04/19/17 02:00 81 19 101/47 97 04/19/17 01:00 78 19 91/49 98 04/19/17 00:00 99.1 F 83 30 H 108/63 96 04/18/17 23:00 75 18 111/51 100 04/18/17 22:00 73 17 112/49 100 04/18/17 21:30 74 21 96/49 95 04/18/17 21:00 78 24 109/53 98 04/18/17 20:30 73 14 104/47 100 04/18/17 20:00 98.2 F 70 16 94/52 100 04/18/17 19:30 78 23 103/47 100 04/18/17 19:00 75 25 H 100/58 98 04/18/17 18:30 74 22 104/65 100 04/18/17 18:00 75 28 H 97/57 95 04/18/17 17:30 71 19 104/43 92 L 04/18/17 17:00 72 25 H 95/45 96 04/18/17 16:30 71 18 81/45 97 04/18/17 16:00 77 19 101/47 97 04/18/17 15:30 73 21 99/54 100 04/18/17 15:00 77 28 H 80/50 99 04/18/17 14:30 73 17 102/47 100 04/18/17 14:00 75 19 105/58 100 04/18/17 13:30 76 28 H 117/58 75 L 04/18/17 13:00 75 20 104/60 93 L 04/18/17 12:30 70 18 99/52 90 L 04/18/17 12:00 99.0 F 71 19 100/53 93 L 04/18/17 11:30 72 36 H 81/44 93 L 04/18/17 11:00 72 28 H 87/42 94 L 04/18/17 10:30 68 21 89/48 99 04/18/17 10:00 72 24 83/45 98 04/18/17 09:30 74 15 82/48 100 04/18/17 09:00 77 30 H 101/48 96 04/18/17 08:30 75 27 H 91/47 100 Intake and Output 04/18/17 04/19/17 04/19/17 22:59 06:59 14:59 Intake Total 363.849 225.167 20 Output Total 560 595 100 Balance -196.151 -369.833 -80 Intake: IV 210 210 20 Piperacillin-Tazobactam 3 50 50 .375 gm In Dextrose/Water 1 50ml.bag @ 12.5 mls/hr IVPB Q8HR [facility] Rx#: [id number] Sodium Chloride 0.9% 1, 160 160 20 000 ml @ 20 mls/hr IV . Q24H [facility] Rx#:[id number] Intake, IV Titration 153.849 15.167 Amount Diltiazem 125 mg In 15.167 Sodium Chloride 0.9% 100 ml @ 10 MG/HR 10 mls/hr IV .[id number] [facility] Rx#: [id number] Heparin Sodium,Porcine/ 153.849 D5w Pmx 25,000 unit In Dextrose/Water 1 500ml. bag @ 9.713 UNITS/KG/HR 20 mls/hr IV .Q24H [facility] Rx #:[id number] Output: Urine 560 595 100 Other: Voiding Method Indwelling Catheter Indwelling Catheter Weight 98 kg 100.7 kg Gen: This is a 61-year-old female. She is sitting up in the ICU bed and appears to be comfortable in and in no acute distress. No respiratory distress is noted. HEENT: Head is atraumatic, normocephalic. Pupils equal, round. Sclerae is anicteric. NECK: Supple. No JVD. No lymphadenopathy. No thyromegaly. LUNGS: Diminished on the left base. No wheezes. No intercostal retractions. HEART: Regular rate and rhythm. No murmur. telemetry monitor is tachycardic at 129-160. Drainage site noted to the left lateral chest wall with small dressing in place and serosanguineous drainage and mild erythema. Left upper quadrant abdomen has skin tear with erythema and excoriation. ABDOMEN: Soft. Bowel sounds are present. No masses. No tenderness. EXTREMITIES: No pedal edema. No calf tenderness. NEUROLOGICAL: Patient is awake, alert and oriented x3. Cranial nerves 2 through 12 are grossly intact. Results Results: Laboratory Results WBC 0.3 k/uL (3.8-10.6) L* 04/19/17 04:48 RBC 3.04 m/uL (3.80-5.40) L 04/19/17 04:48 Hgb 8.6 gm/dL (11.4-16.0) L 04/19/17 04:48 Hct 25.1 % (34.0-46.0) L 04/19/17 04:48 MCV 82.8 fL (80.0-100.0) 04/19/17 04:48 MCH 28.2 pg (25.0-35.0) 04/19/17 04:48 MCHC 34.1 g/dL (31.0-37.0) 04/19/17 04:48 RDW 19.5 % (11.5-15.5) H 04/19/17 04:48 Plt Count 63 k/uL (150-450) L 04/19/17 04:48 Neutrophils % (Manual) 46.0 % 04/16/17 13:18 Lymphocytes % (Manual) 48.0 % 04/16/17 13:18 Monocytes % (Manual) 3.0 % 04/16/17 13:18 Eosinophils % (Manual) 3.0 % 04/16/17 13:18 Neutrophils # (Manual) 0.6 k/uL (1.3-7.7) L 04/16/17 13:18 Lymphocytes # (Manual) 0.6 k/uL (1.0-4.8) L 04/16/17 13:18 Monocytes # (Manual) 0.0 k/uL (0-1.0) 04/16/17 13:18 Eosinophils # (Manual) 0.0 k/uL (0-0.7) 04/16/17 13:18 Nucleated RBCs 0 /100 WBC (0-0) 04/16/17 13:18 Differential Comment 04/19/17 04:48 Manual Slide Review Performed 04/19/17 04:48 Polychromasia Present 04/16/17 13:18 Poikilocytosis (manual Present 04/17/17 05:22 Anisocytosis Slight 04/19/17 04:48 PT 20.7 sec (9.0-12.0) H 04/18/17 14:46 INR 2.1 (<1.1) 04/18/17 14:46 APTT 27.4 sec (22.0-30.0) 04/18/17 14:46 Sodium 140 mmol/L (137-145) 04/19/17 06:26 Potassium 3.1 mmol/L (3.5-5.1) L 04/19/17 06:26 Chloride 109 mmol/L (98-107) H 04/19/17 06:26 Carbon Dioxide 20 mmol/L (22-30) L 04/19/17 06:26 Anion Gap 11 mmol/L 04/19/17 06:26 BUN 38 mg/dL (7-17) H 04/19/17 06:26 Creatinine 1.24 mg/dL (0.52-1.04) H 04/19/17 06:26 Est GFR (MDRD) Af Amer 53 (>60 ml/min/1.73 sqM) 04/19/17 06:26 Est GFR (MDRD) Non-Af 44 (>60 ml/min/1.73 sqM) 04/19/17 06:26 Glucose 94 mg/dL (74-99) 04/19/17 06:26 POC Glucose (mg/dL) 124 mg/dL (75-99) H 04/18/17 12:02 POC Glu [employer] ID Henrry Joe 04/18/17 12:02 Plasma Lactic Acid Fu[place] 1.6 mmol/L (0.7-2.0) 04/16/17 13:18 Calcium 7.0 mg/dL (8.4-10.2) L 04/19/17 06:26 Phosphorus 3.2 mg/dL (2.5-4.5) 04/19/17 06:26 Magnesium 1.9 mg/dL (1.6-2.3) 04/19/17 06:26 Total Bilirubin 1.5 mg/dL (0.2-1.3) H 04/16/17 13:18 AST 23 U/L (14-36) 04/16/17 13:18 ALT 20 U/L (9-52) 04/16/17 13:18 Alkaline Phosphatase 83 U/L (38-126) 04/16/17 13:18 Total Creatine Kinase 507 U/L (30-135) H 04/17/17 00:45 CK-MB (CK-2) 10.8 ng/mL (0.0-2.4) H* 04/17/17 00:45 CK-MB (CK-2) Rel Index 2.1 04/17/17 00:45 Troponin I 0.191 ng/mL (0.000-0.034) H* 04/17/17 00:45 Total Protein 5.8 g/dL (6.3-8.2) L 04/16/17 13:18 Albumin 2.9 g/dL (3.5-5.0) L 04/16/17 13:18 Triglycerides 192 mg/dL (<150) H 04/17/17 05:22 Cholesterol 91 mg/dL (<200) 04/17/17 05:22 LDL Cholesterol, Calc 41 mg/dL (0-99) 04/17/17 05:22 HDL Cholesterol 12 mg/dL (40-60) L 04/17/17 05:22 TSH 2.920 mIU/L (0.465-4.680) 04/16/17 13:18 Urine Color Yellow 04/16/17 22:57 Urine Appearance Cloudy (Clear) H 04/16/17 22:57 Urine pH 5.5 (5.0-8.0) 04/16/17 22:57 Ur Specific [place] 1.015 (1.001-1.035) 04/16/17 22:57 Urine Protein 1+ (Negative) H 04/16/17 22:57 Urine Glucose (UA) Negative (Negative) 04/16/17 22:57 Urine Ketones 1+ (Negative) H 04/16/17 22:57 Urine Blood Moderate (Negative) H 04/16/17 22:57 Urine Nitrite Negative (Negative) 04/16/17 22:57 Urine Bilirubin Negative (Negative) 04/16/17 22:57 Urine Urobilinogen <2.0 mg/dL (<2.0) 04/16/17 22:57 Ur Leukocyte Esterase Trace (Negative) H 04/16/17 22:57 Urine RBC 2 /hpf (0-5) 04/16/17 22:57 Urine WBC 19 /hpf (0-5) H 04/16/17 22:57 Ur Squamous Epith Cells 2 /hpf (0-4) 04/16/17 22:57 Urine Bacteria Occasional /hpf (None) H 04/16/17 22:57 Urine Mucus Rare /hpf (None) H 04/16/17 22:57 Blood Type A Positive 04/16/17 13:18 Blood Type Recheck No 04/16/17 13:18 Antibody Screen NEGATIVE 04/16/17 13:18 Spec Expiration Date 04/19/2017231704/16/17 13:18 CBC & Chem 7: 04/19/17 04:48 04/19/17 06:26 Labs: Abnormal Lab Results - Last 24 Hours (Table) 04/18/17 04/18/17 04/19/17 Range/Units 12:02 14:46 04:48 WBC 0.3 L* (3.8-10.6) k/uL RBC 3.04 L (3.80-5.40) m/uL Hgb 8.6 L (11.4-16.0) gm/dL Hct 25.1 L (34.0-46.0) % RDW 19.5 H (11.5-15.5) % Plt Count 63 L (150-450) k/uL PT 20.7 H (9.0-12.0) sec Potassium (3.5-5.1) mmol/L Chloride (98-107) mmol/L Carbon Dioxide (22-30) mmol/L BUN (7-17) mg/dL Creatinine (0.52-1.04) mg/dL POC Glucose (mg/dL) 124 H (75-99) mg/dL Calcium (8.4-10.2) mg/dL 04/19/17 Range/Units 06:26 WBC (3.8-10.6) k/uL RBC (3.80-5.40) m/uL Hgb (11.4-16.0) gm/dL Hct (34.0-46.0) % RDW (11.5-15.5) % Plt Count (150-450) k/uL PT (9.0-12.0) sec Potassium 3.1 L (3.5-5.1) mmol/L Chloride 109 H (98-107) mmol/L Carbon Dioxide 20 L (22-30) mmol/L BUN 38 H (7-17) mg/dL Creatinine 1.24 H (0.52-1.04) mg/dL POC Glucose (mg/dL) (75-99) mg/dL Calcium 7.0 L (8.4-10.2) mg/dL Microbiology - Last 24 Hours (Table) 04/17/17 14:24 Gram Stain - Preliminary Catheter Site Wound Culture - Preliminary Presumptive MRSA 04/16/17 13:18 Blood Culture Gram Stain - Final Blood Blood Culture - Final Staphylococcus epidermidis 04/17/17 15:40 Urine Culture - Final Urine,Catheterized 04/16/17 13:18 Blood Culture - Preliminary Blood No Growth after 48 hours Assessment and Plan Plan: This is a 61-year-old female who presents to the hospital with signs of sepsis, Pleurx wound infection with concern for underlying pleural infection , atrial fibrillation with rapid ventricular response, acute kidney injury and acute tubular necrosis, pancytopenia, coagulopathy due to sepsis. There is concern for bacteremia and repeat blood culture will be obtained. Regarding the Pleurx wound culture showing presumptive MRSA, patient will be continued on vancomycin. Zosyn and Levaquin will be discontinued and patient will be started on cephapirin. Continue supportive care. Cultures will be monitored. Further recommendations as patient progresses. The above dictated assessment and findings were discussed with Dr. Rodriguez. The impression and plan of care have been directed as dictated. Opal Barbour nurse practitioner acting as scribe for Dr. Rodriguez.
[2017-04-19] MEDS: VANCOMYCIN 1,500 MG in SODIUM CHLORIDE 0.9% 250 ML IVPB SCH (10:31)
[2017-04-19 10:41] VITALS: BMI 38.1
[2017-04-19] MEDS: HYDROcodone/APAP 5-325MG 1 EACH TAB PO PRN (10:52)
--- NOTE | 2017-04-19 11:16 | P.PN ---
Subjective Principal diagnosis: Atrial fibrillation with RVR leukopenia, and sepsis This is a 61-year-old female, familiar to my service, patient is known to have history of mesothelioma affecting the left lung, this was diagnosed in the last a few months by Dr. Hernández who performed thoracoscopic lung evaluation, decortication, and Pleurx catheter placement. Pathology report from her pleural tissue came back positive for mesothelioma. Surprisingly the patient has done better than expected and she has been receiving chemotherapy for her mesothelioma from oncology. Patient was actually seen recently seen in my office, and she was doing quite well relatively asymptomatic, and her chest x- ray was relatively reassuring. On 04/16/2017, patient presented to the ER complaining of feeling extremely dizzy, heart racing and felt like she was going to pass out. Prior to this she was at the oncologist's office, and the patient was advised to go to the ER because of her symptoms and apparently upon presentation she was noted to be hypotensive requiring levo fed and she was also placed on Cardizem drip for her atrial fibrillation and RVR. Today the patient is back in sinus rhythm. She remains on Cardizem at 5 mg per hour. Seen already by cardiology, and I will go ahead and make recommendation for the patient to be seen by thoracic surgery on consultation since she has been complaining of the fact that the Pleurx catheter is not functioning. This will be addressed by thoracic surgery on the case. Today the patient is off norepinephrine, she remains on Cardizem, and she seems to be doing quite well considering her presentation. Patient was reevaluated today on 04/18/2017, she had to be transferred shortly after I saw her yesterday to the intensive care unit because of going back to A. fib with RVR and she was hypotensive. Patient was seen by cardiology, and now she is on multiple medications including amiodarone to control her heart rate. Early this morning the patient converted to a normal sinus rhythm. She is hemodynamically stable. Her Pleurx catheter was removed and there was significant purulent drainage from the site of placement of the Pleurx catheter , hence the possibility of sepsis is being entertained, and the patient is now on broad-spectrum antibiotics. Today she seems to be doing well, she is in no distress, she is hemodynamically stable. However she has bicytopenia with low WBC count of 0.3 and hemoglobin of 8.2. Patient has what seems to be a picture of neutropenic sepsis and broad-spectrum antibiotics were added. Zosyn and Levaquin were initiated yesterday. And vancomycin was also started. Cultures are pending. Coagulase negative staph was noted in the blood, but that seems to be most likely contamination. Patient was reevaluated today on 04/19/2017, continues to have intermittent episodes of atrial fibrillation with RVR. Patient is maximized on antiarrhythmic agents including Cardizem drip. She is also on amiodarone, and on beta blockers. Presently she is still in atrial fibrillation with RVR, cardiology is addressing that issue. Pulmonary-jacob patient had positive cultures from the Pleurx catheter positive for MRSA. Blood cultures showed staph epidermidis. The final report on the wound culture is pending. But it is suspected to be MRSA. Patient is being followed by infectious disease, and vancomycin remains on board. Today I recommended an ultrasound of the chest to evaluate for possible empyema and whether the drainage procedure would have to be performed or possibly a thoracentesis in the fluid is enough to drain and not loculated. Objective - Vital Signs Vital signs: Vital Signs Temp 99.9 F H 04/19/17 08:00 Pulse 135 H 04/19/17 11:00 Resp 22 04/19/17 11:00 BP 77/58 04/19/17 11:00 Pulse Ox 97 04/19/17 11:00 Intake & Output 04/18/17 04/19/17 04/19/17 18:59 06:59 18:59 Intake Total 1582.412 305.167 165 Output Total 625 925 400 Balance 957.412 -619.833 -235 Weight 98 kg 100.7 kg 100.7 kg Intake: IV 521.7 290 100 Amiodarone 450 mg In 16.7 Dextrose 5% in Water 250 ml @ 1 MG/MIN 34.53 mls/ hr IV .Q7H31M [facility] Rx#: [id number] Piperacillin-Tazobactam 3 100 50 .375 gm In Dextrose/Water 1 50ml.bag @ 12.5 mls/hr IVPB Q8HR [facility] Rx#: [id number] Sodium Chloride 0.9% 1, 405 240 100 000 ml @ 20 mls/hr IV . Q24H [facility] Rx#:[id number] Intake, IV Titration 1060.712 15.167 65 Amount Amiodarone 450 mg In 267.530 Dextrose 5% in Water 250 ml @ 1 MG/MIN 34.53 mls/ hr IV .Q7H31M [facility] Rx#: [id number] Calcium Gluconate 1,000 100 mg In Sodium Chloride 0.9 % 100 ml @ 100 mls/hr IVPB BID [facility] Rx#: [id number] Diltiazem 125 mg In 15.167 65 Sodium Chloride 0.9% 100 ml @ 10 MG/HR 10 mls/hr IV .[id number] [facility] Rx#: [id number] Heparin Sodium,Porcine/ 343.182 D5w Pmx 25,000 unit In Dextrose/Water 1 500ml. bag @ 9.713 UNITS/KG/HR 20 mls/hr IV .Q24H [facility] Rx #:[id number] Magnesium Sulfate-D5w Pmx 100 1 gm In Dextrose/Water 1 100ml.bag @ 100 mls/hr IVPB Q1H [facility] Rx#: [id number] Vancomycin 1,500 mg In 250 Sodium Chloride 0.9% 250 ml @ 125 mls/hr IVPB Q36H [facility] Rx#:[id number] Output: Urine 625 925 400 Other: Voiding Method Indwelling Catheter Indwelling Catheter Indwelling Catheter - Exam Physical Exam: Revealed a 61-year-old female in no form of respiratory distress. HEENT:[Neck is supple.] [No neck masses.] [No thyromegaly.] [No JVD.] Chest: [Diminished breath sounds at the left base., no crackles, no rhonchi, no wheezes.] Cardiac Exam: [Irregular irregular rhythm Normal S1 and S2, no S3 gallop, no murmur.] Abdomen: [Soft, nontender, no megaly, no rebound, no guarding, normal bowel sounds.] Extremities: [No clubbing, no edema, no cyanosis.] Neurological Exam: [No focal neurologic deficit.] - Labs CBC & Chem 7: 04/19/17 04:48 04/19/17 06:26 Labs: Abnormal Lab Results - Last 24 Hours (Table) 04/18/17 04/18/17 04/19/17 Range/Units 12:02 14:46 04:48 WBC 0.3 L* (3.8-10.6) k/uL RBC 3.04 L (3.80-5.40) m/uL Hgb 8.6 L (11.4-16.0) gm/dL Hct 25.1 L (34.0-46.0) % RDW 19.5 H (11.5-15.5) % Plt Count 63 L (150-450) k/uL PT 20.7 H (9.0-12.0) sec Potassium (3.5-5.1) mmol/L Chloride (98-107) mmol/L Carbon Dioxide (22-30) mmol/L BUN (7-17) mg/dL Creatinine (0.52-1.04) mg/dL POC Glucose (mg/dL) 124 H (75-99) mg/dL Calcium (8.4-10.2) mg/dL 04/19/17 Range/Units 06:26 WBC (3.8-10.6) k/uL RBC (3.80-5.40) m/uL Hgb (11.4-16.0) gm/dL Hct (34.0-46.0) % RDW (11.5-15.5) % Plt Count (150-450) k/uL PT (9.0-12.0) sec Potassium 3.1 L (3.5-5.1) mmol/L Chloride 109 H (98-107) mmol/L Carbon Dioxide 20 L (22-30) mmol/L BUN 38 H (7-17) mg/dL Creatinine 1.24 H (0.52-1.04) mg/dL POC Glucose (mg/dL) (75-99) mg/dL Calcium 7.0 L (8.4-10.2) mg/dL Microbiology - Last 24 Hours (Table) 04/17/17 14:24 Gram Stain - Preliminary Catheter Site Wound Culture - Preliminary Presumptive MRSA 04/16/17 13:18 Blood Culture Gram Stain - Final Blood Blood Culture - Final Staphylococcus epidermidis 04/17/17 15:40 Urine Culture - Final Urine,Catheterized 04/16/17 13:18 Blood Culture - Preliminary Blood No Growth after 48 hours Assessment and Plan Plan: Impression: 1 acute atrial fibrillation with RVR, intermittent conversion to sinus rhythm and she goes back into A. fib with RVR. 2 left-sided mesothelioma and pleural effusion, previous decortication and Pleurx catheter placement. The Pleurx catheter was removed yesterday by thoracic surgery. Fluid from the chest catheter was positive for presumptive MRSA. Patient is now on vancomycin, we'll arrange for ultrasound of the chest and decide whether a thoracentesis or a chest tube will be indicated. 3 leukopenia and anemia secondary to chemotherapy given for her mesothelioma. Suspect neutropenic sepsis is in the differential. 4 hypotension on presentation secondary to atrial fibrillation with RVR. Suspect MRSA sepsis. 5 suspect acute kidney injury, secondary to hypotension and acute tubular necrosis. Kidney functioning is improving today creatinine was 1.68 and it is 1.24 today. 6 history of underlying coronary artery disease 7 history of bronchial asthma 8 history of multiple comorbidities including hyperlipidemia, uterine cancer, peripheral neuropathy, gout, mentally challenged, and history of claustrophobia. Recommendation: Agree with present treatment plan, continue broad-spectrum antibiotics including Zosyn and vancomycin and Levaquin empirically, continue antiarrhythmic agents including amiodarone, and beta blockers, patient will remain in the ICU, ultrasound of the chest is pending, continue treatment plan, will follow. Critical care time is 33 minutes Time with Patient: Greater than 30
--- NOTE | 2017-04-19 11:24 | US ---
EXAMINATION TYPE: US chest DATE OF EXAM: 04/19/2017 10:54 AM COMPARISON: NONE CLINICAL HISTORY: empyema/mesothelioma left. EXAM MEASUREMENTS: Left Pleural Effusion fluid pocket: 11.1 cm - complex in appearance with lung noted anteriorly Left side marked for possible thoracentesis outside the dept. IMPRESSIONS: Pleural effusion on the left is not simple in appearance. There may be loculation.
[2017-04-19] MEDS: MAGNESIUM SULFATE-D5W PMX 1 GM in DEXTROSE/WATER 1 100ML.BAG IVPB SCH ×2 (11:35→12:44)
[2017-04-19] MEDS ORDERED: SODIUM CHLORIDE 0.9% 500 ML IV ONE (13:01)
[2017-04-19] MEDS ORDERED: DEXTROSE 5% IN WATER 100 ML with AMIODARONE 150 MG IV ONE (13:30)
[2017-04-19] MEDS: NOREPINEPHRIN 4 MG-0.9% NS PMX 4 MG/250 ML ML IV SCH ×2 (13:32→20:01)
--- NOTE | 2017-04-19 14:15 | P.CON ---
Consult Note - . Consult date: 04/19/17 Assessment/Plan:: This is a 61-year-old female who has a significant past history of endometrial cancer in 2009 treated with hysterectomy and BSO. She had a recent hospitalization for every 2016 for recurrent left pleural effusion and underwent thoracentesis which was negative for malignancy she again had a repeat negative thoracentesis. 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 PET scan revealed uptake in the left lower anterior pleural and adjacent left lower lobe. She was started on cisplatin and Alimta and her third cycle was done on April 11 and Neulasta on April 12. Patient was in the oncology office on the day of this admission where she was having shortness of breath and lightheadedness and her heart was racing which she could feel palpitations and she was hypotensive. She was then sent to [facility] emergency center for evaluation. She was found to be in atrial fibrillation with rapid ventricular response she was placed on amiodarone drips which to oral amiodarone as she converted to a normal sinus rhythm. Early this morning, she converted back to atrial fibrillation with rapid ventricular response and is now on Cardizem drip as well as oral amiodarone. She had an initial white count of 1.2 currently at 0.3, hemoglobin 8.6 and platelet count 63. BUN 45 and creatinine 1.29 her INR is elevated at 2.1 thought to be due to sepsis. Troponins were elevated and cardiology has evaluated with no sign of acute coronary syndrome. Her urinalysis was cloudy, blood moderate, leukoesterase trace and white count 19. Patient had a wound culture from the left Pleurx site which is presumptive for MRSA. Blood culture initially obtained on April 16 is positive for Staphylococcus epidermidis. She is currently on IV antibiotics the form of Levaquin, Zosyn and vancomycin. She is also followed by oncology and pulmonary medicine. Dr. Hogan does not appear to suspect pneumonia. Her most recent chest x-ray is showing loculated left pleural effusion, increasing effusions. Patient has also been followed by cardiothoracic surgery and they had removed the Pleurx catheter which was originally placed on January 25. Patient does complain of some shortness of breath with discomfort at the left chest wall and upper abdomen. Patient is noted to have intellectual disability but very pleasant and able to answer simple questions regarding her current situation. Please see the consult note as dictated by GIN POLE OPERATOR Mrs Opal Barbour . Case discussed with cardiovascular surgery. Patient has plurex cath removed and the site on left abd wall is infected with MRSA. Ultrasound reveals effusion which is of concernGiven the MRSA this likely being isolated from the site of the abdominal wall. Staph infections are often correlated well from superficial sites to the deep site that they're associated with. Likely have a thoracentesis and thereafter have a chest tube to be placed. For antibiotic therapy given the fever relative neutropenia and MRSA infection, cefepime and vancomycin are being utilized. She has been started on amiodarone and levofloxacin will be discontinued, there is a drug drug interaction. I agree with the evaluation assessment and plan as dictated by GIN POLE OPERATOR Mrs Opal Barbour
--- NOTE | 2017-04-19 14:21 | PN ---
Bessy Britton is back in atrial fibrillation with RVR. She looks comfortable. She is resting comfortably in bed. Heart sounds are irregular. Breath sounds are reduced bilaterally. IMPRESSION: 1. Paroxysmal atrial fibrillation with rapid ventricular response . 2. Lung disease/mesothelioma. PLAN: I am placing her back on IV amiodarone now and then tomorrow we will restart on oral amiodarone again once the IV is complete.
[2017-04-19] MEDS: AMIODARONE 450 MG in DEXTROSE 5% IN WATER 250 ML IV SCH ×4 (14:56→23:27)
--- NOTE | 2017-04-19 15:09 | PN ---
DATE OF SERVICE: 04/19/2017 This is a 61-year-old woman who was admitted with atrial fibrillation with fast ventricular rate, was improving yesterday, but last night the patient again had atrial fibrillation with fast ventricular rate. Her blood pressure also dropped. Cardizem drip was initiated. Cardiology started intravenous amiodarone for the blood pressure issues. Patient also had a possible empyema. The patient also had MRSA grown from the wound culture and staph epi from the blood culture one out of several. Dr. Rodriguez is following the patient closely. The patient will be closely monitored at this the time. The patient was also running a mild fever also. tachycardic. PAST MEDICAL HISTORY: Reviewed. REVIEW OF SYSTEMS: CARDIOVASCULAR: As mentioned earlier. RESPIRATORY: As mentioned earlier. GI: No nausea. : No dysuria. NERVOUS SYSTEM: No numbness or weakness. Current medications are reviewed and include: 1. [place] 5 mg q.6 p.r.n. 2. Xanax 0.25 t.i.d. 3. Amiodarone IV drip. 4. Aspirin 81 mg daily. 5. Tenormin 25 mg p.o. daily. 6. Lipitor 40 mg p.o. q.h.s. 7. Calcium gluconate b.i.d. 9. Amiodarone drip. 10. Dilaudid 0.5 q.4 p.r.n. 11. Nitrostat. 12. Restoril. 13. Ultram. 14. Vancomycin IV. PHYSICAL EXAM: Patient is alert and oriented x3. Pulse 126 irregular, blood pressure is 86/42, respirations 17, temperature is 100 degrees, pulse ox 96% on 4 L. HEENT: Conjunctivae normal, oral mucosa moist. NECK: No jugular venous distension. No lymph node enlargement. CARDIOVASCULAR: S1, S2, muffled, irregular, RESPIRATORY: Breath sounds diminished at the bases, a few scattered rhonchi, no crackles. Breath sounds are diminished on the left side. Abdomen is soft, obese, nontender, no mass palpable. LEGS: Minimal leg edema. NERVOUS SYSTEM: Higher function as mentioned earlier, moves all 4 limbs. No focal motor deficits. LYMPHATICS: No lymph node enlargement in the neck, axillae or groin. SKIN: No ulcer, rash, bleeding. Labs are WBC is 0.3, hemoglobin is 8.6, platelets are 63. Sodium 140, potassium 3.1. Creatinine is 1.24. ASSESSMENT: 1. Atrial fibrillation with fast ventricular rate present on admission, recurrent. 2. Possible empyema on left side with severe sepsis and septic shock. 3. Methicillin-resistant Staphylococcus aureus from the wound culture. 4. Coagulase negative staphylococcus on out of several blood cultures. 5. Hypotension, multifactorial, possibly secondary to septic shock as well as cardiogenic shock. 6. Left-sided mesothelioma with a pleural effusion as well as chest tube drainage and thoracocentesis. 7. Severe leukopenia and neutropenia, possibly secondary chemotherapy. 8. Troponin 0.32 indicating acute non-ST segment elevation myocardial infarction present on admission possibly. 9. Pancytopenia secondary to chemotherapy and malignancy. 10. Increased creatinine with acute renal failure, possible prerenal factors and acute tubular necrosis. 11. Hypokalemia. 12. Hypomagnesemia. 13. Severe hypercalcemia. 14. Hypoalbuminemia with mild to moderate protein calorie malnutrition. 15. Obesity with a body mass index of 39. 16. History of asthma. 17. History of coronary artery disease. 18. History of essential hypertension. 19. Hyperlipidemia. 20. History of degenerative joint disease. 21. History of pneumonia. 22. Super morbid obesity. 23. History of bronchial asthma, chronic intermittent. 24. History of uterine cancer. 25. History of cataracts. 26. History of peripheral neuropathy. 27. History of migraine. 28. History of recurrent urinary tract infection. 29. History of gout. 30. History of mentally challenged. 31. History of hysterectomy. 32. History of claustrophobia. 33. Remote history of nicotine dependence. 34. FULL CODE. RECOMMENDATION: In this 61-year-old woman who presented with multiple complex medical issues, will monitor the patient closely in ICU. Otherwise, continue with amiodarone drip. Continue with IV antibiotics. Follow the cultures and monitor the blood pressure closely. Continue with the pressor support. Overall prognosis guarded because of multiple complex medical issues which were described earlier. The patient's condition is extremely serious and patient continues to be monitored in the ICU. Cardiology and Pulmonology input appreciated. Otherwise, continue to monitor. Further recommendations to follow. See orders for details. Discussed at length with the family at the bedside. Discussed with staff. Potassium supplementation protocol and monitor creatinine closely. MTDD
--- NOTE | 2017-04-19 15:41 | ECHOF ---
Referral Reason:chf MEASUREMENTS -------- HEIGHT: 162.6 cm WEIGHT: 103.0 kg BP: 108/55 RVIDd: 2.7 cm (< 3.3) IVSd: 1.2 cm (0.6 - 1.1) LVIDd: 5.4 cm (3.9 - 5.3) LVPWd: 1.3 cm (0.6 - 1.1) IVSs: 1.8 cm LVIDs: 2.7 cm LVPWs: 1.8 cm LAESV Index (A-L): 16.65 ml/m Ao Diam: 3.1 cm (2.0 - 3.7) AV Cusp: 1.8 cm (1.5 - 2.6) LA Diam: 3.3 cm (2.7 - 3.8) MV EXCURSION: 18.048 mm (> 18.000) MV EF SLOPE: 104 mm/s (70 - 150) EPSS: 0.7 cm MV E Aureliano: 0.81 m/s MV DecT: 184 ms MV A Aureliano: 0.63 m/s MV E/A Ratio: 1.30 AV maxP.96 mmHg AV meanP.89 mmHg RAP: 5.00 mmHg RVSP: 33.06 mmHg FINDINGS -------- Sinus rhythm with extra systolic beats. This was a technically difficult study with suboptimal views. There is mild concentric left ventricular hypertrophy. There is normal global left ventricular contractility. Overall left ventricular systolic function is normal with, an EF between 55 - 60 %. The right ventricle is normal in size and function. Normal LA size by volume 22+/-6 ml/m2. The right atrium is normal in size. 1.5mg of Definity was utilized for enhancement of images There is mild aortic valve sclerosis. There is no evidence of aortic regurgitation. There is no evidence of aortic stenosis. The mitral valve leaflets are mildly thickened. Mild mitral annular calcification present. There is trace to mild mitral regurgitation. Trace tricuspid regurgitation present. There is no evidence of pulmonary hypertension. The right ventricular systolic pressure, as measured by Doppler, is 33.06mmHg. The pulmonic valve was not well visualized. The aortic root size is normal. The pericardium is normal. There is no pericardial effusion. CONCLUSIONS -------- 1. Sinus rhythm with extra systolic beats. 2. There is trace to mild mitral regurgitation. 3. Trace tricuspid regurgitation present. 4. There is no evidence of pulmonary hypertension. 5. The right ventricular systolic pressure, as measured by Doppler, is 33.06mmHg. 6. The pulmonic valve was not well visualized. 7. The aortic root size is normal. 8. There is no pericardial effusion. 9. This was a technically difficult study with suboptimal views. 10. There is mild concentric left ventricular hypertrophy. 11. There is normal global left ventricular contractility. 12. Normal LA size by volume 22+/-6 ml/m2. 13. 1.5mg of Definity was utilized for enhancement of images 14. There is mild aortic valve sclerosis. 15. The mitral valve leaflets are mildly thickened. 16. Mild mitral annular calcification present. JOB ORDER CLERK: Marcio Her RDCS
[2017-04-19] MEDS: MUPIROCIN 2% OINT 22 GM TUBE TOPICAL SCH ×2 (17:37→22:00)
[2017-04-19] MEDS: SODIUM CHLORIDE 0.9% 1,000 ML IV SCH (17:38)
[2017-04-19 19:37] LABS: Magnesium 2.1 mg/dL (1.6-2.3); Potassium 3.3 mmol/L (3.5-5.1)
[2017-04-19] MEDS: ATORVASTATIN 40 MG TAB PO SCH (20:02)
[2017-04-20] MEDS: NOREPINEPHRIN 4 MG-0.9% NS PMX 4 MG/250 ML ML IV SCH ×4 (02:49→23:22)
[2017-04-20] MEDS: SODIUM CHLORIDE 0.9% 1,000 ML IV SCH (02:50)
[2017-04-20] MEDS: AMIODARONE 450 MG in DEXTROSE 5% IN WATER 250 ML IV SCH ×4 (04:00→15:15)
[2017-04-20 04:26] LABS: Anisocytosis Slight; Aty Lym Flag Moderate; CH 27.3; CHCM 32.8; HCT 24.5 % (34.0-46.0); HDW 2.54; HGB 8.2 gm/dL (11.4-16.0); MCHC 33.5 g/dL (31.0-37.0); MCV 83.7 fL (80.0-100.0); Mean Platelet Volume 7.8; RBC 2.92 m/uL (3.80-5.40); RDW 19.3 % (11.5-15.5); WBC (Perox) 0.29
[2017-04-20 04:31] LABS: WBC 0.2 k/uL (3.8-10.6)
[2017-04-20 05:02] LABS: Add Differential Manual Differential
[2017-04-20 05:03] LABS: Manual Review Performed
[2017-04-20 05:08] LABS: Calcium 7.7 mg/dL (8.4-10.2); Magnesium 1.8 mg/dL (1.6-2.3); Phosphorous 3.2 mg/dL (2.5-4.5); Potassium 3.1 mmol/L (3.5-5.1)
[2017-04-20] MEDS ORDERED: Potassium Replacement Protocol 1 EACH MISC MISCELLANE PRN (05:11)
[2017-04-20] MEDS ORDERED: Magnesium Replacement Protocol 1 EACH MISC MISCELLANE PRN (05:11)
[2017-04-20] MEDS ORDERED: POTASSIUM CHLORIDE 10 MEQ, LIDOCAINE 2% INJ 10 MG in SODIUM CHLORIDE 0.9% 100 ML IV SCH ×4 (06:00)
[2017-04-20] MEDS: MAGNESIUM SULFATE-D5W PMX 1 GM in DEXTROSE/WATER 1 100ML.BAG IVPB SCH ×2 (06:15→08:33)
--- NOTE | 2017-04-20 08:11 | XR ---
EXAMINATION TYPE: XR chest 1V portable DATE OF EXAM: 04/20/2017 COMPARISON: Prior chest x-ray 19 Apr 2017 HISTORY: Shortness of breath TECHNIQUE: Single frontal view of the chest is obtained. FINDINGS: Similar findings to prior exam. There may be increasing left pleural effusion. Patient is rotated. IMPRESSION: There may be worsening left pleural effusion.
[2017-04-20] MEDS: PANTOPRAZOLE 40 MG TABLET PO SCH (08:33)
[2017-04-20] MEDS: ASPIRIN 81 MG CHEW PO SCH (08:33)
[2017-04-20] MEDS: ATENOLOL 25 MG TAB PO SCH (08:34)
[2017-04-20] MEDS: MUPIROCIN 2% OINT 22 GM TUBE TOPICAL SCH ×3 (08:34→21:48)
[2017-04-20] MEDS: CEFEPIME 2 GM in SODIUM CHLORIDE 0.9% 50 ML IVPB SCH ×2 (08:34→21:48)
[2017-04-20] MEDS: MAG HYDROX/AL HYDROX/SIMETH 30 ML, LIDOCAINE VISCOUS 30 ML, diphenhydrAMINE ELIXIR 75 M... PO SCH ×16 (08:35→21:48)
[2017-04-20] MEDS: VANCOMYCIN 1,500 MG in SODIUM CHLORIDE 0.9% 250 ML IVPB SCH (08:49)
--- NOTE | 2017-04-20 10:43 | P.PN ---
Subjective Principal diagnosis: Atrial fibrillation with RVR leukopenia, and sepsis This is a 61-year-old female, familiar to my service, patient is known to have history of mesothelioma affecting the left lung, this was diagnosed in the last a few months by Dr. Hernández who performed thoracoscopic lung evaluation, decortication, and Pleurx catheter placement. Pathology report from her pleural tissue came back positive for mesothelioma. Surprisingly the patient has done better than expected and she has been receiving chemotherapy for her mesothelioma from oncology. Patient was actually seen recently seen in my office, and she was doing quite well relatively asymptomatic, and her chest x- ray was relatively reassuring. On 04/16/2017, patient presented to the ER complaining of feeling extremely dizzy, heart racing and felt like she was going to pass out. Prior to this she was at the oncologist's office, and the patient was advised to go to the ER because of her symptoms and apparently upon presentation she was noted to be hypotensive requiring levo fed and she was also placed on Cardizem drip for her atrial fibrillation and RVR. Today the patient is back in sinus rhythm. She remains on Cardizem at 5 mg per hour. Seen already by cardiology, and I will go ahead and make recommendation for the patient to be seen by thoracic surgery on consultation since she has been complaining of the fact that the Pleurx catheter is not functioning. This will be addressed by thoracic surgery on the case. Today the patient is off norepinephrine, she remains on Cardizem, and she seems to be doing quite well considering her presentation. Patient was reevaluated today on 04/18/2017, she had to be transferred shortly after I saw her yesterday to the intensive care unit because of going back to A. fib with RVR and she was hypotensive. Patient was seen by cardiology, and now she is on multiple medications including amiodarone to control her heart rate. Early this morning the patient converted to a normal sinus rhythm. She is hemodynamically stable. Her Pleurx catheter was removed and there was significant purulent drainage from the site of placement of the Pleurx catheter , hence the possibility of sepsis is being entertained, and the patient is now on broad-spectrum antibiotics. Today she seems to be doing well, she is in no distress, she is hemodynamically stable. However she has bicytopenia with low WBC count of 0.3 and hemoglobin of 8.2. Patient has what seems to be a picture of neutropenic sepsis and broad-spectrum antibiotics were added. Zosyn and Levaquin were initiated yesterday. And vancomycin was also started. Cultures are pending. Coagulase negative staph was noted in the blood, but that seems to be most likely contamination. Patient was reevaluated today on 04/19/2017, continues to have intermittent episodes of atrial fibrillation with RVR. Patient is maximized on antiarrhythmic agents including Cardizem drip. She is also on amiodarone, and on beta blockers. Presently she is still in atrial fibrillation with RVR, cardiology is addressing that issue. Pulmonary-jacob patient had positive cultures from the Pleurx catheter positive for MRSA. Blood cultures showed staph epidermidis. The final report on the wound culture is pending. But it is suspected to be MRSA. Patient is being followed by infectious disease, and vancomycin remains on board. Today I recommended an ultrasound of the chest to evaluate for possible empyema and whether the drainage procedure would have to be performed or possibly a thoracentesis in the fluid is enough to drain and not loculated. Patient was reevaluated today on 04/20/2017, remains in atrial fibrillation with RVR, presently on amiodarone drip. Remains pancytopenic, WBC count is 0.2 hemoglobin is 8.2 platelets are 54,000 INR is 2.1 potassium is 3.1. Ultrasound of the chest was reviewed and clearly the patient has a complicated pleural effusion, loculated, a simple thoracentesis cannot be done, and will likely be more risky with no major benefit. Hence the patient will either need a pigtail catheter placement by interventional radiology, or should have a chest tube placed by thoracic surgery who handled the Pleurx catheter all along. Other options to be considered is possibly comfort care measures since the patient has a terminal disease/mesothelioma, or even consider transferring the patient down to [facility] I am quite concerned about the possibility of empyema in the left pleural space. Again as simple thoracentesis will not be enough not to mention the fact is quite risky at this point having to do it sort of blindly. We'll consult interventional radiology, will ask thoracic surgery to reevaluate for possible chest tube placement. In the meantime the patient remains on multiple antibiotics as per infectious disease on the case. Objective - Vital Signs Vital signs: Vital Signs Temp 99.9 F H 04/20/17 08:00 Pulse 123 H 04/20/17 09:30 Resp 20 04/20/17 09:30 BP 90/56 04/20/17 09:30 Pulse Ox 94 L 04/20/17 09:30 Intake & Output 04/19/17 04/20/17 04/20/17 18:59 06:59 18:59 Intake Total 905 1418.167 20 Output Total 785 1069 110 Balance 120 349.167 -90 Weight 100.7 kg 97.1 kg 101.9 kg Intake: IV 240 260 20 Sodium Chloride 0.9% 1, 240 260 20 000 ml @ 20 mls/hr IV . Q24H [facility] Rx#:[id number] Intake, IV Titration 65 1108.167 Amount Amiodarone 450 mg In 365.042 Dextrose 5% in Water 250 ml @ 1 MG/MIN 34.53 mls/ hr IV .[id number] [facility] Rx#: [id number] Calcium Gluconate 1,000 100 mg In Sodium Chloride 0.9 % 100 ml @ 100 mls/hr IVPB BID [facility] Rx#: [id number] Cefepime 2 gm In Sodium 50 Chloride 0.9% 50 ml @ 100 mls/hr IVPB Q12HR [facility] Rx #:[id number] Diltiazem 125 mg In 65 Sodium Chloride 0.9% 100 ml @ 10 MG/HR 10 mls/hr IV .[id number] [facility] Rx#: [id number] Norepinephrin 4 mg-0.9% 493.125 Ns Pmx 4 mg In 250 ml @ Titrate IV .Q0M [facility] Rx#: [id number] Potassium Chloride 10 meq 100 Lidocaine 2% Inj 10 mg In Sodium Chloride 0.9% 100 ml @ 100 mls/hr IV Q1HR [facility] Rx#:[id number] Oral 600 50 Output: Urine 785 1069 110 Other: Voiding Method Indwelling Catheter Indwelling Catheter - Exam Physical Exam: Revealed a 61-year-old female in no form of respiratory distress. HEENT:[Neck is supple.] [No neck masses.] [No thyromegaly.] [No JVD.] Chest: [Diminished breath sounds at the left base., no crackles, no rhonchi, no wheezes.] Cardiac Exam: [Irregular irregular rhythm Normal S1 and S2, no S3 gallop, no murmur.] Abdomen: [Soft, nontender, no megaly, no rebound, no guarding, normal bowel sounds.] Extremities: [No clubbing, no edema, no cyanosis.] Neurological Exam: [No focal neurologic deficit.] - Labs CBC & Chem 7: 04/20/17 03:56 04/20/17 03:56 Labs: Abnormal Lab Results - Last 24 Hours (Table) 04/19/17 04/20/17 04/20/17 Range/Units 19:00 03:56 03:56 WBC 0.2 L* (3.8-10.6) k/uL RBC 2.92 L (3.80-5.40) m/uL Hgb 8.2 L (11.4-16.0) gm/dL Hct 24.5 L (34.0-46.0) % RDW 19.3 H (11.5-15.5) % Plt Count 54 L (150-450) k/uL Potassium 3.3 L 3.1 L (3.5-5.1) mmol/L Chloride 111 H (98-107) mmol/L Carbon Dioxide 18 L (22-30) mmol/L BUN 37 H (7-17) mg/dL Creatinine 1.20 H (0.52-1.04) mg/dL Glucose 111 H (74-99) mg/dL Calcium 7.7 L (8.4-10.2) mg/dL Microbiology - Last 24 Hours (Table) 04/17/17 14:40 Anaerobic Culture - Preliminary Catheter Site 04/17/17 14:24 Gram Stain - Final Catheter Site Wound Culture - Final Methicillin resist S. aureus 04/18/17 15:27 Blood Culture - Preliminary Blood No Growth after 24 hours 04/16/17 13:18 Blood Culture - Preliminary Blood No Growth after 72 hours Assessment and Plan Plan: Impression: 1 acute atrial fibrillation with RVR, intermittent conversion to sinus rhythm and she goes back into A. fib with RVR. 2 left-sided mesothelioma and pleural effusion, previous decortication and Pleurx catheter placement. Suspect complicated pleural effusion/possible empyema involving the left pleural space, hence thoracic surgery will be reconsulted for possible chest tube placement and interventional radiology will also be consulted for possible pigtail catheter placement. 3 pancytopenia secondary to chemotherapy given for her mesothelioma. Suspect neutropenic sepsis is in the differential. 4 hypotension on presentation secondary to atrial fibrillation with RVR. Suspect MRSA sepsis. 5 suspect acute kidney injury, secondary to hypotension and acute tubular necrosis. Kidney functioning is improving today creatinine was 1.68 and it is 1.20 today. 6 history of underlying coronary artery disease 7 history of bronchial asthma 8 history of multiple comorbidities including hyperlipidemia, uterine cancer, peripheral neuropathy, gout, mentally challenged, and history of claustrophobia. Recommendation: Agree with present treatment plan, continue broad-spectrum antibiotics consult thoracic surgery and consult interventional radiology, I believe it's necessary to either consider tube thoracostomy or pigtail catheter placement of the left pleural space. A simple thoracentesis will not be enough not to mention it is risky and not much would be drained considering the fluid seems to be loculated on ultrasound of the chest. Consider discussing CODE STATUS with the family, patient definitely has terminal illness/mesothelioma. Overall prognosis is definitely poor and guarded. Patient remains in the ICU mostly because of low blood pressure, and she is on amiodarone drip at this point. We'll continue to follow. Critical care time is 31 minutes. Time with Patient: Greater than 30
[2017-04-20] MEDS: CALCIUM GLUCONATE 1,000 MG in SODIUM CHLORIDE 0.9% 100 ML IVPB SCH ×2 (11:00→21:48)
--- NOTE | 2017-04-20 14:14 | P.PN ---
Progress Note - Text I had a long discussion with all the family members today and discussed all the different clinical issues with the patient. Family was made aware of that condition is very guarded, and prognosis is very poor. Discussed with the family the issue of loculated pleural effusion and possible empyema, discussed the issue of her hypotension and sepsis, also the issue of her atrial fibrillation and RVR, discussed the issue of her underlying mesothelioma. When family was made aware that her condition is critical and prognosis is very poor , FAMILY members including and sister agreed to DNR CODE STATUS. We also discussed the issue of possible comfort care if her condition continues to decline. Hospice would be considered if no significant improvement noted in the next couple of days. Questions by family members were addressed accordingly.
[2017-04-20] MEDS ORDERED: FILGRASTIM-SNDZ 480 MCG/0.8 ML SYRINGE SQ SCH (21:00)
[2017-04-20] MEDS: HYDROcodone/APAP 5-325MG 1 EACH TAB PO PRN (21:48)
[2017-04-20] MEDS: ATORVASTATIN 40 MG TAB PO SCH (21:51)
[2017-04-21] MEDS: NOREPINEPHRIN 4 MG-0.9% NS PMX 4 MG/250 ML ML IV SCH ×2 (03:17→06:53)
[2017-04-21] MEDS ORDERED: AMIODARONE 450 MG in DEXTROSE 5% IN WATER 250 ML IV SCH ×2 (04:48)
[2017-04-21] MEDS: HYDROcodone/APAP 5-325MG 1 EACH TAB PO PRN ×2 (05:05→09:36)
[2017-04-21 05:28] LABS: Anisocytosis Slight; Aty Lym Flag Slight; CH 27.3; CHCM 31.9; HCT 26.3 % (34.0-46.0); HDW 2.55; HGB 8.5 gm/dL (11.4-16.0); MCH 27.9 pg (25.0-35.0); MCHC 32.4 g/dL (31.0-37.0); MCV 85.9 fL (80.0-100.0); Mean Platelet Volume 8.7; RBC 3.06 m/uL (3.80-5.40); RDW 19.6 % (11.5-15.5); WBC (Perox) 0.22
[2017-04-21 05:34] LABS: WBC 0.2 k/uL (3.8-10.6)
[2017-04-21 05:45] LABS: Anion Gap 11 mmol/L; Blood Urea Nitrogen 34 mg/dL (7-17); Calcium 7.8 mg/dL (8.4-10.2); Carbon Dioxide 19 mmol/L (22-30); Chloride 113 mmol/L (98-107); Glucose 121 mg/dL (74-99); Magnesium 1.7 mg/dL (1.6-2.3); Non-African American GFR(MDRD) 56 (>60 ml/min/1.73 sqM); Phosphorous 3.1 mg/dL (2.5-4.5); Sodium 143 mmol/L (137-145)
[2017-04-21 05:55] LABS: Potassium 2.8 mmol/L (3.5-5.1)
[2017-04-21] MEDS ORDERED: Potassium Replacement Protocol 1 EACH MISC MISCELLANE PRN ×2 (05:57→06:25)
[2017-04-21] MEDS ORDERED: Magnesium Replacement Protocol 1 EACH MISC MISCELLANE PRN (05:57)
[2017-04-21 06:07] LABS: Add Differential Manual Differential; Manual Review Performed
[2017-04-21 06:08] LABS: Target Cells Present
[2017-04-21] MEDS: MAGNESIUM SULFATE-D5W PMX 1 GM in DEXTROSE/WATER 1 100ML.BAG IVPB SCH ×2 (06:17→09:36)
[2017-04-21] MEDS ORDERED: POTASSIUM CHLORIDE ORAL LIQUID 40 MEQ/30 ML CUP NG-TUBE SCH (06:30)
[2017-04-21] MEDS: POTASSIUM CHLORIDE 10 MEQ, LIDOCAINE 2% INJ 10 MG in SODIUM CHLORIDE 0.9% 100 ML IV SCH ×2 (06:42→08:20)
[2017-04-21] MEDS ORDERED: VANCOMYCIN TROUGH DUE 1 EACH MISC MISCELLANE ONE (08:00)
--- NOTE | 2017-04-21 08:14 | XR ---
EXAMINATION TYPE: XR chest 1V portable DATE OF EXAM: 04/21/2017 COMPARISON: Prior chest x-ray 20 Apr 2017 HISTORY: Shortness of breath TECHNIQUE: Single frontal view of the chest is obtained. FINDINGS: Exam is stable. IMPRESSION: Loculated left effusion persists.
[2017-04-21 08:20] VITALS: TEMP 98.5
[2017-04-21] MEDS: CEFEPIME 2 GM in SODIUM CHLORIDE 0.9% 50 ML IVPB SCH (08:21)
[2017-04-21] MEDS: ATENOLOL 25 MG TAB PO SCH (08:21)
[2017-04-21] MEDS: CALCIUM GLUCONATE 1,000 MG in SODIUM CHLORIDE 0.9% 100 ML IVPB SCH (08:21)
[2017-04-21] MEDS: ASPIRIN 81 MG CHEW PO SCH (08:21)
[2017-04-21] MEDS: MUPIROCIN 2% OINT 22 GM TUBE TOPICAL SCH (08:22)
[2017-04-21] MEDS: VANCOMYCIN 1,500 MG in SODIUM CHLORIDE 0.9% 250 ML IVPB SCH (08:22)
--- NOTE | 2017-04-21 08:31 | PN ---
DATE OF SERVICE: 04/20/2017 This 67-year-old woman who was admitted with atrial fibrillation, fast ventricular rate, also had possible empyema, MRSA, coagulase negative staph in the blood. The patient also had hypotension, which is thought to be multifactorial. The patient is being closely monitored at this time. The patient was seen by multiple consultants including cardiology and pulmonology. The patient is being closely monitored. Patient is in ICU. The patient is no code, no cardiopulmonary resuscitation, no vent and this time. Sodium has improved significantly. Blood pressure is fluctuating. The patient is on Levophed support also. PAST MEDICAL HISTORY: Reviewed. CARDIOVASCULAR: As mentioned. GI: No nausea. : No dysuria. Current medications: 1. [place] 5 mg every 6 p.r.n. 2. Xanax 0.25 t.i.d. 3. Aspirin 81 mg. 4. Tenormin 25 mg daily. 5. Lipitor 40 mg at bedtime. 6. Calcium gluconate 1000 b.i.d. 7. Serevent 2 grams IV b.i.d. 8. Dilaudid. 9. Replacement protocols, Bactrim, Nitrostat. 10. Levophed drip. 11. Restoril. 12. Ultram. 13. Vancomycin IV. On exam, the patient is alert and oriented x3. Pulse is 106, blood pressure 105/77. Temperature normal. Pulse ox 90% on 2L HEENT: Conjunctivae normal. Oral mucosa moist. CARDIOVASCULAR: S1 and S2. Tachycardic. RESPIRATORY: Breath sounds diminished at the bases, especially left side. Few scattered rhonchi and crackles. ABDOMEN: Soft, obese, nontender. EXTREMITIES: Bilateral leg edema. NERVOUS SYSTEM: diffusely weak. LABS: WBC 0.2, hemoglobin 8.2, potassium 3.1. ASSESSMENT: 1. Atrial fibrillation with fast ventricular rate present on admission, recurrent. 2. Possible empyema on the left side with severe sepsis and septic shock with MRSA. 3. Coagulase-negative staph from the one out of several blood cultures. 4. Hypotension, multifactorial, secondary to septic shock as well as cardiogenic shock. 5. Left-sided mesothelial with pleural effusion as well as chest tube drainage and thoracentesis. 6. Severe leukopenia and neutropenia, possibly secondary to chemotherapy. 7. Troponin 0.32, indicating acute non-ST elevation myocardial infarction, present on admission possibly. 8. Pancytopenia secondary to chemotherapy and malignancy. 9. Increased creatinine with acute renal failure, possibly prerenal factors and acute tubular necrosis. 10. Hypokalemia. 11. Hypomagnesium. 12. Severe hypocalcemia. 13. Hypoalbuminemia with mild to moderate protein calorie malnutrition. 14. Obesity with body max index of 39. 15. History of asthma. 16. History of coronary artery disease. 17. History of essential hypertension. 18. Hyperlipidemia. 19. History of degenerative joint disease. 20. History of pneumonia. 21. History of obesity. 22. History of bronchial asthma, chronic intermittent. 23. Of uterine cancer. 24. History of cataracts. 25. History of peripheral neuropathy. 26. History of migraine. 27. History of recurrent urinary tract infections. 28. History of gout. 29. History of mentally challenged. 30. History of hysterectomy. 31. History of claustrophobia. 32. Remote history of nicotine dependence. 33. FULL CODE. RECOMMENDATIONS AND DISCUSSION: Recommended to continue current medications, continue with monitoring. Replace potassium. See orders for further details. The culture showed MRSA and staph epidermidis from several cultures. Closely follow with multiple consultants. Guarded prognosis. Further recommendations to follow. Discussed with family. The patient is no code, no CPR. Further recommendations to follow.
[2017-04-21] MEDS ORDERED: PANTOPRAZOLE 40 MG/10 ML VIAL IVP SCH (09:00)
[2017-04-21 09:14] VITALS: PULSE 133
[2017-04-21 12:48] VITALS: BP 118/69; RESP 24
--- NOTE | 2017-04-21 13:38 | P.PN ---
Subjective Principal diagnosis: Atrial fibrillation with RVR leukopenia, and sepsis This is a 61-year-old female, familiar to my service, patient is known to have history of mesothelioma affecting the left lung, this was diagnosed in the last a few months by Dr. Hernández who performed thoracoscopic lung evaluation, decortication, and Pleurx catheter placement. Pathology report from her pleural tissue came back positive for mesothelioma. Surprisingly the patient has done better than expected and she has been receiving chemotherapy for her mesothelioma from oncology. Patient was actually seen recently seen in my office, and she was doing quite well relatively asymptomatic, and her chest x- ray was relatively reassuring. On 04/16/2017, patient presented to the ER complaining of feeling extremely dizzy, heart racing and felt like she was going to pass out. Prior to this she was at the oncologist's office, and the patient was advised to go to the ER because of her symptoms and apparently upon presentation she was noted to be hypotensive requiring levo fed and she was also placed on Cardizem drip for her atrial fibrillation and RVR. Today the patient is back in sinus rhythm. She remains on Cardizem at 5 mg per hour. Seen already by cardiology, and I will go ahead and make recommendation for the patient to be seen by thoracic surgery on consultation since she has been complaining of the fact that the Pleurx catheter is not functioning. This will be addressed by thoracic surgery on the case. Today the patient is off norepinephrine, she remains on Cardizem, and she seems to be doing quite well considering her presentation. Patient was reevaluated today on 04/18/2017, she had to be transferred shortly after I saw her yesterday to the intensive care unit because of going back to A. fib with RVR and she was hypotensive. Patient was seen by cardiology, and now she is on multiple medications including amiodarone to control her heart rate. Early this morning the patient converted to a normal sinus rhythm. She is hemodynamically stable. Her Pleurx catheter was removed and there was significant purulent drainage from the site of placement of the Pleurx catheter , hence the possibility of sepsis is being entertained, and the patient is now on broad-spectrum antibiotics. Today she seems to be doing well, she is in no distress, she is hemodynamically stable. However she has bicytopenia with low WBC count of 0.3 and hemoglobin of 8.2. Patient has what seems to be a picture of neutropenic sepsis and broad-spectrum antibiotics were added. Zosyn and Levaquin were initiated yesterday. And vancomycin was also started. Cultures are pending. Coagulase negative staph was noted in the blood, but that seems to be most likely contamination. Patient was reevaluated today on 04/19/2017, continues to have intermittent episodes of atrial fibrillation with RVR. Patient is maximized on antiarrhythmic agents including Cardizem drip. She is also on amiodarone, and on beta blockers. Presently she is still in atrial fibrillation with RVR, cardiology is addressing that issue. Pulmonary-jacob patient had positive cultures from the Pleurx catheter positive for MRSA. Blood cultures showed staph epidermidis. The final report on the wound culture is pending. But it is suspected to be MRSA. Patient is being followed by infectious disease, and vancomycin remains on board. Today I recommended an ultrasound of the chest to evaluate for possible empyema and whether the drainage procedure would have to be performed or possibly a thoracentesis in the fluid is enough to drain and not loculated. Patient was reevaluated today on 04/20/2017, remains in atrial fibrillation with RVR, presently on amiodarone drip. Remains pancytopenic, WBC count is 0.2 hemoglobin is 8.2 platelets are 54,000 INR is 2.1 potassium is 3.1. Ultrasound of the chest was reviewed and clearly the patient has a complicated pleural effusion, loculated, a simple thoracentesis cannot be done, and will likely be more risky with no major benefit. Hence the patient will either need a pigtail catheter placement by interventional radiology, or should have a chest tube placed by thoracic surgery who handled the Pleurx catheter all along. Other options to be considered is possibly comfort care measures since the patient has a terminal disease/mesothelioma, or even consider transferring the patient down to [facility] I am quite concerned about the possibility of empyema in the left pleural space. Again as simple thoracentesis will not be enough not to mention the fact is quite risky at this point having to do it sort of blindly. We'll consult interventional radiology, will ask thoracic surgery to reevaluate for possible chest tube placement. In the meantime the patient remains on multiple antibiotics as per infectious disease on the case. Patient was reevaluated today on 04/21/2017, continues to do poorly, after my discussion with the family yesterday, apparently family members have met, and decided to take the patient home today for hospice. Patient is definitely critically ill, and overall prognosis is poor. Objective - Vital Signs Vital signs: Vital Signs Temp 98.5 F 04/21/17 08:00 Pulse 133 H 04/21/17 12:30 Resp 24 04/21/17 12:30 BP 118/69 04/21/17 12:30 Pulse Ox 96 04/21/17 12:30 Intake & Output 04/20/17 04/21/17 04/21/17 18:59 06:59 18:59 Intake Total 694.599 6055.313 100 Output Total 630 1095 145 Balance 334.175 160.313 -45 Weight 101.9 kg 101.9 kg 103.8 kg Intake: IV 220 260 100 Sodium Chloride 0.9% 1, 220 260 100 000 ml @ 20 mls/hr IV . Q24H [facility] Rx#:[id number] Intake, IV Titration 744.175 995.313 Amount Amiodarone 450 mg In 194.175 Dextrose 5% in Water 250 ml @ 1 MG/MIN 34.53 mls/ hr IV .Q7H31M [facility] Rx#: [id number] Calcium Gluconate 1,000 100 mg In Sodium Chloride 0.9 % 100 ml @ 100 mls/hr IVPB BID [facility] Rx#: [id number] Magnesium Sulfate-D5w Pmx 200 1 gm In Dextrose/Water 1 100ml.bag @ 100 mls/hr IVPB Q1H [facility] Rx#: [id number] Norepinephrin 4 mg-0.9% 250 995.313 Ns Pmx 4 mg In 250 ml @ Titrate IV .Q0M [facility] Rx#: [id number] Output: Urine 630 1095 145 Other: Voiding Method Indwelling Catheter Indwelling Catheter Indwelling Catheter - Exam Physical Exam: Revealed a 61-year-old female in no form of respiratory distress. HEENT:[Neck is supple.] [No neck masses.] [No thyromegaly.] [No JVD.] Chest: [Diminished breath sounds at the left base., no crackles, no rhonchi, no wheezes.] Cardiac Exam: [Irregular irregular rhythm Normal S1 and S2, no S3 gallop, no murmur.] Abdomen: [Soft, nontender, no megaly, no rebound, no guarding, normal bowel sounds.] Extremities: [No clubbing, no edema, no cyanosis.] Neurological Exam: [No focal neurologic deficit.] - Labs CBC & Chem 7: 04/21/17 05:04 04/21/17 05:04 Labs: Abnormal Lab Results - Last 24 Hours (Table) 04/21/17 04/21/17 Range/Units 05:04 05:04 WBC 0.2 L* (3.8-10.6) k/uL RBC 3.06 L (3.80-5.40) m/uL Hgb 8.5 L (11.4-16.0) gm/dL Hct 26.3 L (34.0-46.0) % RDW 19.6 H (11.5-15.5) % Plt Count 29 L* (150-450) k/uL Potassium 2.8 L* (3.5-5.1) mmol/L Chloride 113 H (98-107) mmol/L Carbon Dioxide 19 L (22-30) mmol/L BUN 34 H (7-17) mg/dL Glucose 121 H (74-99) mg/dL Calcium 7.8 L (8.4-10.2) mg/dL Microbiology - Last 24 Hours (Table) 04/19/17 09:35 Blood Culture - Preliminary Blood No Growth after 48 hours 04/19/17 09:41 Blood Culture - Preliminary Blood No Growth after 48 hours 04/18/17 15:27 Blood Culture - Preliminary Blood No Growth after 48 hours 04/16/17 13:18 Blood Culture - Preliminary Blood No Growth after 96 hours Assessment and Plan Plan: Impression: 1 acute atrial fibrillation with RVR, intermittent conversion to sinus rhythm and she goes back into A. fib with RVR. 2 left-sided mesothelioma and pleural effusion, previous decortication and Pleurx catheter placement. Suspect complicated pleural effusion/possible empyema involving the left pleural space, hence thoracic surgery will be reconsulted for possible chest tube placement and interventional radiology will also be consulted for possible pigtail catheter placement. 3 pancytopenia secondary to chemotherapy given for her mesothelioma. Suspect neutropenic sepsis is in the differential. 4 hypotension on presentation secondary to atrial fibrillation with RVR. Suspect MRSA sepsis. 5 suspect acute kidney injury, secondary to hypotension and acute tubular necrosis. Kidney functioning is improving today creatinine was 1.68 and it is 1.20 today. 6 history of underlying coronary artery disease 7 history of bronchial asthma 8 history of multiple comorbidities including hyperlipidemia, uterine cancer, peripheral neuropathy, gout, mentally challenged, and history of claustrophobia. Recommendation: I fully agree with the decision per family members to take the patient home/hospice. Likely the patient will not last long. Time with Patient: Less than 30
--- NOTE | 2017-04-21 15:50 | DS ---
DATE OF ADMISSION: 04/16/2017 DATE OF DISCHARGE: FINAL DIAGNOSES: 1. Atrial fibrillation with fast ventricular rate, present on admission recurrent. 2. Possible empyema on the left side with severe sepsis, septic shock with methicillin-resistant Staphylococcus aureus. 3. Coagulase negative Staph on the blood culture one out of several. 4. Hypotension multifactor secondary as well as cardiogenic shock. 5. Left right-sided mesothelioma with the pleural effusion chest tube drainage and thoracocentesis. 6. Severe leukopenia neutropenia possibly secondary to chemotherapy. 7. Troponin 0.32 indicating acute non-ST segment elevation myocardial infarction, present on admission, possibly. 8. Pancytopenia secondary to chemotherapy and malignancy. 9. Increased creatinine with acute renal failure, possibly prerenal factors and acute tubular necrosis. 10. Hypokalemia. 11. Hypomagnesemia. 12. Severe hypocalcemia. 13. Hypoalbuminemia with mild to moderate protein calorie malnutrition. 14. Obesity with body mass index of 39. 15. History of asthma. 16. History of coronary artery disease. 17. History of hypertension. 18. Hyperlipidemia. 19. History of degenerative joint disease. 20. History of pneumonia. 21. History of obesity. 22. History of bronchial asthma, chronic intermittent. 23. History of cataracts. 24. History of peripheral neuropathy. 25. History of migraine. 26. History of recurrent urinary tract infection. 27. History of gout. 28. History of mentally challenged. 29. History of hysterectomy. 30. History of claustrophobia. 31. Remote history of nicotine dependence. 32. NO CODE. NO CPR. NO VENT. HOSPICE. DISCHARGE DISPOSITION: Patient will be discharged in a stable condition with guarded prognosis. Treated with broad-spectrum IV antibiotics and the antiarrhythmic medication. The patient continues to be in and out of atrial fibrillation, the patient was given Amiodarone and Cardizem. The patient on outpatient antibiotics. Also, the patient continues to be pressor supported. The patient was seen by multiple consultants and the cultures showed MRSA. Multiple antibiotics were used. of antibiotics and other, patient's condition did not improve. The white count remained to be low at 0.2 and case was discussed with the family and the patient at length and the patient will be discharged in stable condition with guarded prognosis to hospice. On exam, vitals are noted. CARDIOVASCULAR: S1, S2. Irregular tachycardic. Respirations a few scattered rhonchi. ABDOMEN: Soft. CENTRAL NERVOUS SYSTEM: Diffusely weak. DISCHARGE ADVICE AND MEDICATIONS: 1. Discharge diet as tolerated. 2. Activity as tolerated. 3. Follow up with Dr. Fuentes p.r.n. 4. [place] 5 mg q.6 p.r.n. 5. [employer] solutions p.r.n. 6. Further orders per hospice. MTDD
--- NOTE | 2017-04-21 18:11 | PN ---
DATE OF SERVICE: April 21, 2017 Bessy is seen today as a follow-up. She is doing unfortunately, poorly. She is are very weak, tired. She is still on vasopressors. Her platelet counts are very low and she is extremely tired. On examination, she is alert, oriented x3. Her vital signs are temperature 98.5. Her pulse is 133, respirations 28, blood pressure 112/56. IMPRESSION: 1. Malignant mesothelioma. 2. Significant pancytopenia related to chemotherapy. 3. Atrial fibrillation with rapid ventricular response. 4. Acute kidney injury. PHYSICAL EXAMINATION: HEENT: Normocephalic, atraumatic. NECK: Supple. CHEST: Equal expansion bilaterally. HEART: Tachy irregular. LUNGS: Clear anteriorly. ABDOMEN: Soft. No tenderness. EXTREMITIES: 2+ edema. LABORATORY DATA: WBC of 0.2, hemoglobin 8.5, hematocrit 29. Sodium 143, potassium 2.8, chloride 113, CO2 is 19, BUN is 34, creatinine is 1.0. IMPRESSION: 1. Malignant mesothelioma. 2. Pancytopenia secondary to chemotherapy. 3. Multiple other comorbidities and rapidly declining performance status. RECOMMENDATIONS: The patient and her family decision to go home with hospice care. I believe given her malignancy and her comorbidities and poor performance status, this would be very reasonable. I did discuss that with the patient and her family members at bedside.
== END 2017-04-21 16:16 | disposition hospice, home (50) | DRG 871 ==
LOC: EC 12:50 → 6ICU 16:36 → 6SEL 04-17 06:52 → 6ICU 04-17 15:03
PROVIDERS: ADMIT Hospitalist; ATTEND Hospitalist
DX: A41.1 Sepsis due to other specified staphylococcus (principal); I21.4 Non-ST elevation (NSTEMI) myocardial infarction; N17.0 Acute kidney failure with tubular necrosis; J86.9 Pyothorax without fistula; R65.21 Severe sepsis with septic shock; R57.0 Cardiogenic shock; D68.9 Coagulation defect, unspecified; E83.42 Hypomagnesemia; E44.0 Moderate protein-calorie malnutrition; I48.0 Paroxysmal atrial fibrillation; D61.810 Antineoplastic chemotherapy induced pancytopenia; I50.9 Heart failure, unspecified; I11.0 Hypertensive heart disease with heart failure; E66.01 Morbid (severe) obesity due to excess calories; B95.62 Methicillin resistant Staphylococcus aureus infection as the cause of diseases classified elsewhere; C45.9 Mesothelioma, unspecified; D70.3 Neutropenia due to infection; E11.9 Type 2 diabetes mellitus without complications; E78.5 Hyperlipidemia, unspecified; E83.51 Hypocalcemia; E83.52 Hypercalcemia; E87.6 Hypokalemia; F40.240 Claustrophobia; F79 Unspecified intellectual disabilities; G89.29 Other chronic pain; I25.10 Atherosclerotic heart disease of native coronary artery without angina pectoris; J45.909 Unspecified asthma, uncomplicated; K12.31 Oral mucositis (ulcerative) due to antineoplastic therapy; M10.9 Gout, unspecified; R13.10 Dysphagia, unspecified; T45.1X5A Adverse effect of antineoplastic and immunosuppressive drugs, initial encounter; Z68.39 Body mass index [BMI] 39.0-39.9, adult; Z79.82 Long term (current) use of aspirin; Z79.899 Other long term (current) drug therapy; Z82.49 Family history of ischemic heart disease and other diseases of the circulatory system; Z85.42 Personal history of malignant neoplasm of other parts of uterus; Z85.89 Personal history of malignant neoplasm of other organs and systems; Z87.01 Personal history of pneumonia (recurrent); Z87.440 Personal history of urinary (tract) infections; Z87.891 Personal history of nicotine dependence; Z90.710 Acquired absence of both cervix and uterus
CPT/HCPCS: 36415; 71010; 71020; 76604; 80048; 80053; 80061; 80202; 81001; 82550; 82553; 83605; 83735; 84100; 84132; 84443; 84484; 85025; 85610; 85730; 86850; 86900; 86901; 87040; 87070; 87075; 87077; 87086; 87186; 87205; 93005; 93306; 96365; 96366; 96367; 96375; 96376; 99291